=== PATIENT | male | born 1960 | race African-American/Black ===

== ENCOUNTER 2016-11-07 12:15 | Observation (INO) | payer OTHER ==
[~2016-11-07] VITALS: Ht 188 cm; Wt 101.8 kg
[~2016-11-07 12:15] MED LIST: CYCL-331 PO; FLEXERIL; HYDR-965 PO; LISI1TAB5 PO; PRED20TA PO; SIMV10TA3 PO
--- NOTE | 2016-11-07 12:19 | ED.ADGEN ---
Past History Past Medical History: High Cholesterol, Hypertension, Other Additional Past Medical Histor: CHRONIC BACK PAIN Past Surgical History: Appendectomy, Other Additional Past Surgical Histo: DISC FUSIONS IN LOWER BACK Smoking: Cigar Alcohol Use: None Drug Use: None Adult General Chief Complaint Chief Complaint Chest pain [facility] HPI Patient is a 56 year old who presents with substernal chest pain. He states his been going on for 6 months very intermittent and now over the last 2 days is gotten much worse where his symptoms are getting closer together and lasting much longer. He states he describes a sharp stabbing pain is in the substernal chest area radiates to his left shoulder and sometimes down his left arm. States she's attacking come on and last round 20 minutes and then subsided go away by themselves. He states he feels short of breath when they come on and nauseated at times. He denies any diaphoresis. He does have hypertension dyslipidemia and smokes cigars. He's never had a formal react workup or evaluation. Does have a sister who had hypertension, diabetes and end- stage renal failure who . He denies any other history of coronary disease in his family. He states nothing makes the pain better or worse. He states does state that he feels like he is limited to activities for shortness of breath and can only ambulate partially a block before he has to stop to rest. Review of Systems Review of Systems Constitutional: Denies fever or chills [] Eyes: Denies change in visual acuity, redness, or eye pain [] HENT: Denies nasal congestion or sore throat [] Respiratory: Denies cough or shortness of breath [] Cardiovascular: No additional information not addressed in HPI [] GI: Denies abdominal pain, nausea, vomiting, bloody stools or diarrhea [] : Denies dysuria or hematuria [] Musculoskeletal: Denies back pain or joint pain [] Integument: Denies rash or skin lesions [] Neurologic: Denies headache, focal weakness or sensory changes [] Endocrine: Denies polyuria or polydipsia [] Current Medications Current Medications Current Medications Medications (Trade) Dose Ordered Sig/Taras Start Time Stop Time Status Last Admin Dose Admin Nitroglycerin (Nitrostat) 0.4 mg 1X ONCE 11/07/16 13:15 11/07/16 13:16 DC 11/07/16 13:15 0.4 MG Ondansetron HCl (Zofran) 4 mg 1X ONCE 11/07/16 12:45 11/07/16 12:46 DC 11/07/16 12:45 4 MG Allergies Allergies Allergies Coded Allergies Type Severity Reaction Last Updated Verified No Known Drug Allergies 02/01/14 No Physical Exam Physical Exam Constitutional: Well developed, well nourished, no acute distress, non-toxic appearance. [] HENT: Normocephalic, atraumatic, bilateral external ears normal, oropharynx moist, no oral exudates, nose normal. [] Eyes: PERRLA, EOMI, conjunctiva normal, no discharge. [] Neck: Normal range of motion, no tenderness, supple, no stridor. [] Cardiovascular:Heart rate regular rhythm, no murmur [] Lungs & Thorax: Bilateral breath sounds clear to auscultation [] Abdomen: Bowel sounds normal, soft, no tenderness, no masses, no pulsatile masses. [] Skin: Warm, dry, no erythema, no rash. [] Back: No tenderness, no CVA tenderness. [] Extremities: No tenderness, no cyanosis, no clubbing, ROM intact, no edema. [] Neurologic: Alert and oriented X 3, normal motor function, normal sensory function, no focal deficits noted. [] Psychologic: Affect normal, judgement normal, mood normal. [] Current Patient Data Vital Signs Vital Signs Date Time Temp Pulse Resp B/P Pulse Ox O2 Delivery O2 Flow Rate FiO2 11/07/16 13:15 88 144/69 11/07/16 12:25 98.3 18 99 Room Air Lab Results Laboratory Tests Test 11/07/16 12:30 White Blood Count 9.3x10^3/uL (4.0-11.0) Red Blood Count 5.00x10^6/uL (4.30-5.70) Hemoglobin 14.7g/dL (13.0-17.5) Hematocrit 44.8% (39.0-53.0) Mean Corpuscular Volume 90fL (79-100) Mean Corpuscular Hemoglobin 30pg (25-35) Mean Corpuscular Hemoglobin Concent 33g/dL (31-37) Red Cell Distribution Width 14.1% (11.5-14.5) Platelet Count 296x10^3/uL (140-400) Neutrophils (%) (Auto) 52% (31-73) Lymphocytes (%) (Auto) 38% (24-48) Monocytes (%) (Auto) 7% (0-9) Eosinophils (%) (Auto) 3% (0-3) Basophils (%) (Auto) 1% (0-3) Neutrophils # (Auto) 4.8x10^3uL (1.8-7.7) Lymphocytes # (Auto) 3.5x10^3/uL (1.0-4.8) Monocytes # (Auto) 0.7x10^3/uL (0.0-1.1) Eosinophils # (Auto) 0.2x10^3/uL (0.0-0.7) Basophils # (Auto) 0.0x10^3/uL (0.0-0.2) Prothrombin Time 9.7SEC (9.4-11.4) Prothrombin Time INR 0.9 (0.9-1.1) PTT 25SEC (23-33) Sodium Level 143mmol/L (136-145) Potassium Level 3.6mmol/L (3.5-5.1) Chloride Level 105mmol/L (98-107) Carbon Dioxide Level 25mmol/L (21-32) Anion Gap 13 (6-14) Blood Urea Nitrogen 14mg/dL (8-26) Creatinine 1.3mg/dL (0.7-1.3) Estimated GFR (Cockcroft-Gault) 69.1 BUN/Creatinine Ratio 11 (6-20) Glucose Level 162mg/dL (70-99) H Calcium Level 8.9mg/dL (8.5-10.1) Magnesium Level 1.8mg/dL (1.8-2.4) Total Bilirubin 0.4mg/dL (0.2-1.0) Aspartate Amino Transferase (AST) 15U/L (15-37) Alanine Aminotransferase (ALT) 21U/L (16-63) Alkaline Phosphatase 79U/L (46-116) Creatine Kinase 233U/L (39-308) Creatine Kinase MB (Mass) 1.0ng/mL (0.0-3.6) Creatine Kinase MB Relative Index 0.4% (0-4) Troponin I Quantitative < 0.017ng/mL (0-0.055) HI-Tws-D-Type Natriuretic Peptide 9pg/mL (0-124) Total Protein 7.5g/dL (6.4-8.2) Albumin 3.6g/dL (3.4-5.0) Albumin/Globulin Ratio 0.9 (1.0-1.7) L Lipase 150U/L (73-393) EKG EKG EKG shows sinus rhythm with rate [address] elevations, T-wave inversions noted in lead 3, left axis deviation, QTC 4 and 43 ms, as interpreted by me. Radiology/Procedures Radiology/Procedures [address] [id number] IMAGING REPORT Signed PATIENT: HALLE TADEO ACCOUNT: [id number] : 1960 LOCATION: ER AGE: 56 SEX: M EXAM STATUS: REG ER ORD. PHYSICIAN: HEMANT TORRES MD REASON: chest pain PROCEDURE: PORTABLE CHEST 1V Portable chest, 11/07/2016: History: Chest pain Comparison is made to a study from 11/06/2012. The heart size and pulmonary vascularity are normal. No pulmonary infiltrates are seen. There is no evidence of pleural fluid. IMPRESSION: No acute cardiopulmonary abnormality is detected. DICTATED AND SIGNED BY: TRA FLORES MD DATE: 11/07/16 1256 CC: HEMANT TORRES MD; JOYCELYN HOLCOMB APRN ~ Course & Med Decision Making Course & Med Decision Making Pertinent Labs and Imaging studies reviewed. (See chart for details) She presented with chest discomfort that was resolved with nitroglycerin in the ER. His EKG does have T-wave inversions in lead 3. His labs and chest x-ray nonacute. Patient was discussed with with cardiology is okay with the patient being admitted to [facility] to have a stress test in the morning. Patient's agreeable plan is being admitted to Dr. Alfredo in stable condition at this time. He did receive 325 of aspirin. Final Impression Final Impression Chest pain Hypertension Dyslipidemia Problems: Dragon Disclaimer Dragon Disclaimer This electronic medical record was generated, in whole or in part, using a voice recognition dictation system. HEMANT TORRES MD November 07, 2016 12:19
--- NOTE | 2016-11-07 12:30 | EKG ---
[address] [address] Test Date: 2016-11-07 Test Time: 12:22:17 Pat Name: HALLE TADEO Department: Room: Gender: M [employer]: LESTER : 1960 Requested By: HEMANT TORRES Order Number: [id number] Reading MD: Deep Holcomb Measurements Intervals [place] Rate: 77 P: 53 NE: 182 QRS: -6 QRSD: 82 T: 20 QT: 390 QTc: 443 Interpretive Statements SINUS RHYTHM Electronically Signed On 11-09-2016 13:16:26 CDT by Deep Holcomb
[2016-11-07] MEDS ORDERED: ONDANSETRON PF 4 MG/2 ML VIAL. IV ONE (12:45)
[2016-11-07 12:47] LABS: BASO % 1 % (0-3); EOS # 0.2 x10^3/uL (0.0-0.7); EOS % 3 % (0-3); HEMATOCRIT 44.8 % (39.0-53.0); HEMOGLOBIN 14.7 g/dL (13.0-17.5); LYMPH # 3.5 x10^3/uL (1.0-4.8); LYMPH % 38 % (24-48); MEAN CORPUSCULAR HEMOGLOBIN 30 pg (25-35); MEAN CORPUSCULAR HGB CONC 33 g/dL (31-37); MEAN CORPUSCULAR VOLUME 90 fL (79-100); MONO # 0.7 x10^3/uL (0.0-1.1); MONO % 7 % (0-9); NEUT # 4.8 x10^3uL (1.8-7.7); NEUT % 52 % (31-73); PLATELET COUNT 296 x10^3/uL (140-400); RED CELL DISTRIBUTION WIDTH 14.1 % (11.5-14.5); WHITE BLOOD COUNT 9.3 x10^3/uL (4.0-11.0)
--- NOTE | 2016-11-07 12:59 | RAD ---
Portable chest, 11/07/2016: History: Chest pain Comparison is made to a study from 11/06/2012. The heart size and pulmonary vascularity are normal. No pulmonary infiltrates are seen. There is no evidence of pleural fluid. IMPRESSION: No acute cardiopulmonary abnormality is detected.
[2016-11-07 13:12] LABS: ALBUMIN 3.6 g/dL (3.4-5.0); ALBUMIN/GLOBULIN RATIO 0.9 (1.0-1.7); CALCIUM 8.9 mg/dL (8.5-10.1); CREATININE 1.3 mg/dL (0.7-1.3); GFR 69.1; MAGNESIUM 1.8 mg/dL (1.8-2.4); POTASSIUM 3.6 mmol/L (3.5-5.1); TOTAL BILIRUBIN 0.4 mg/dL (0.2-1.0); TOTAL PROTEIN 7.5 g/dL (6.4-8.2)
[2016-11-07] MEDS ORDERED: NITROGLYCERIN SUBLINGUAL 0.4 MG BOTTLE OF 25. SL ONE ×2 (13:15→14:30)
[2016-11-07] MEDS ORDERED: ONDANSETRON PF 4 MG/2 ML VIAL. IV PRN (14:15)
[2016-11-07] MEDS ORDERED: ASPIRIN 81 MG TAB.CHEW PO ONE (14:30)
[2016-11-07 15:43] VITALS: BP 162/71
[2016-11-07] MEDS ORDERED: ATOR20TA58 PO (15:45)
[2016-11-07] MEDS ORDERED: LISI-334 PO (15:45)
[2016-11-07] MEDS: HYDROcodone/APAP 7.5/325MG 1 TAB TABLET PO PRN ×2 (16:52→22:54)
--- NOTE | 2016-11-07 17:39 | NUR ---
The patient, HALLE TADEO, 56 y/o, M admitted by TERRY MANNING DO, was given written information regarding hospital policies, unit procedures and contact persons. Valuables were checked and left with pt. Pt's , Tonia, present at time of admission. Pt notified of plan of care, including stress test in AM and NPO after midnight. KATHERINE Mcfadden, notified of cardiology consult. Dr. Manning notified of admission and orders received for pain medication. Will continue to monitor.
[2016-11-07 20:00] VITALS: BP 154/80
[2016-11-07] MEDS: MORPHINE SULFATE 2 MG/ML DISP.SYRIN. IV PRN (20:24)
[2016-11-07] MEDS ORDERED: ATORVASTATIN CALCIUM 20 MG TABLET PO SCH (21:00)
[2016-11-07 22:53] VITALS: BP 152/76
[2016-11-07 23:45] LABS: BILIRUBIN,URINE NEG (NEG); CLARITY,URINE CLEAR; COLOR,URINE YELLOW; GLUCOSE,URINE NEG (NEG); NITRITE,URINE NEG (NEG); UROBILINOGEN,URINE 0.2 mg/dL (0.2 mg/dL)
[2016-11-07 23:46] LABS: BACTERIA,URINE 0 /HPF (0-FEW); SQUAMOUS EPITHELIAL CELL,UR OCC /LPF; WBC,URINE OCC /HPF (0-4)
[2016-11-08 02:03] LABS: BASO # 0.1 x10^3/uL (0.0-0.2); BASO % 1 % (0-3); EOS # 0.3 x10^3/uL (0.0-0.7); EOS % 3 % (0-3); HEMATOCRIT 40.7 % (39.0-53.0); HEMOGLOBIN 13.9 g/dL (13.0-17.5); LYMPH # 4.5 x10^3/uL (1.0-4.8); LYMPH % 46 % (24-48); MEAN CORPUSCULAR HEMOGLOBIN 30 pg (25-35); MEAN CORPUSCULAR HGB CONC 34 g/dL (31-37); MEAN CORPUSCULAR VOLUME 89 fL (79-100); MONO # 0.9 x10^3/uL (0.0-1.1); MONO % 9 % (0-9); NEUT % 41 % (31-73); PLATELET COUNT 287 x10^3/uL (140-400); RED BLOOD COUNT 4.58 x10^6/uL (4.30-5.70); RED CELL DISTRIBUTION WIDTH 13.6 % (11.5-14.5); WHITE BLOOD COUNT 9.8 x10^3/uL (4.0-11.0)
[2016-11-08 02:31] LABS: CREATININE 1.2 mg/dL (0.7-1.3); GFR 75.8; POTASSIUM 3.6 mmol/L (3.5-5.1)
[2016-11-08] MEDS: MORPHINE SULFATE 2 MG/ML DISP.SYRIN. IV PRN ×2 (05:13→11:07)
[2016-11-08 05:35] VITALS: BP 119/79
--- NOTE | 2016-11-08 06:12 | NUR ---
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 Pt has facial grimacing and rubbing at back and leg. Continues to have Kpad for comfort. Pt resting in bed at this time with at bedside. Case management to speak with patient today in regards to pain management plan.
--- NOTE | 2016-11-08 06:31 | ACF ---
Admission Criteria Forms CHEST PAIN Clinical Indications for Admission to Inpatient Care (Place 'X' for any and all applicable criteria): Admission is indicated for chest pain and ANY ONE of the following(1)(2)(3)(4)(5 ): [ ]I. Angina with acute coronary syndrome (Also use Myocardial Infarction or Angina guideline) [ ]II. Hemodynamic instability [ ]III. Angina needing acute intervention as indicated by ALL of the following( 11)(12): [ ]a) Unstable angina is present as indicated by angina that is ANY ONE of the following: [ ]i) New onset [ ]ii) Nocturnal [ ]iii) Prolonged at rest [ ]iv) Progressive [ ]b) Angina warrants acute intervention as indicated by ANY ONE of the following: [ ]i) Recurrent angina (e.g, not responding as previously to treatment) [ ]ii) Angina at rest or with low-level activities despite initial medical therapy [ ]iii) New or presumably new ST-segment depression on ECG [ ]iv) Signs or symptoms of heart failure (eg, dyspnea, pulmonary edema) [ ]v) New or worsening mitral regurgitation [ ]vi) Hemodynamic instability [ ]vii) Dangerous arrhythmia (eg, sustained ventricular tachycardia) [ ]viii) History of percutaneous coronary intervention within 6 months [ ]ix) History of coronary artery bypass graft surgery [ ]x) DANICA risk score of 2 or greater[A] [ ]xi) History of Diabetes(14) [ ]xii) High-risk cardiac ischemia findings on noninvasive testing (e.g, echocardiogram, treadmill testing, nuclear scan) [ ]xiii) Chronic renal insufficiency (ie, estimated GFR less than 60 mL/min/1.732m) [ ]xiv) Left ventricular ejection fraction less than 40% [ ]IV. Evidence of AR (eg, cardiac biomarkers positive, ST-segment elevation on ECG) also use Myocardial Infarction Criteria Form. [ ]V. Pulmonary edema [ ]. Respiratory distress [ ]VII. Chest pain indicative of serious diagnosis other than coronary artery disease (eg, aortic dissection) [ ]VIII. Contraindications and/or Inappropriate clinical situations for Observational Care in patients with Chest Pain, when ANY ONE of the following is required: [ ]a) Patient with risk factor for pulmonary embolism, acute coronary syndrome and myocardial infarction (18) [ ]b) Patient with Pulmonary embolism require an average LOS of 4.3 days, therefore emergency department observation management is inappropriate 18,23 [ ]c) Painful condition/s in the elderly, have the highest rate of recidivism after emergency department observation management (10.8%) 20,21,22 [ ]d) Elevated cardiac biomarker requires intensive and exhaustive care (19) [X]IX. General contraindications and/or Inappropriate clinical situations for Observational Care in patients with Chest Pain, when ANY ONE of the following is required: [X]a) Prediction of prolongation of LOS based on ANY ONE of the following may be considered as a contraindication for observational care 2, 3, 4, 5, 6, 7, 8, 9, 10, 11 [ ]i) Age > 65 yrs. [ ]ii) Patient arriving by ambulance [ ]iii) Patient with high acuity [X]iv) Patient requiring vital sign monitoring [ ]v) Patient on IV medication [ ]b) Systolic blood pressures 180mmHg 3,12 [ ]c) Patient with altered mental status including delirium and other alteration of consciousness, (3) [ ]d) Patient whose discharge disposition will be to a half-way home or rehabilitation home should not be managed in Emergency Department Observation Unit. CMS rule requires 3 days hospital stay before such placement. 3,13 [ ]e) Patient with failure to thrive due to broad array of etiologies 3,16,17 [ ]f) Inability to ambulate 3,14 Extended stay beyond goal length of stay may be needed for (1)(28): [ ]a) Specific condition diagnosed after evaluation (eg, pulmonary embolism, aortic dissection) [ ]b) Unstable angina [ ]c) Continued suspicion of acute coronary syndrome with inability to complete needed cardiac evaluation (eg, patient clinically unable to undergo stress testing) [ ]d) Myocardial infarction (Contents from ANGINA and CHEST PAIN clinical indications for admission to inpatient care have been integrated in this form) The original [facility] content created by [employer] has been revised. The portions of the content which have been revised are identified through the use of italic text or in bold, and [facility] [employer] has neither reviewed nor approved the modified material. All other unmodified content is copyright [facility]. Please see references footnoted in the original [facility] edition 2016 Admission Criteria Met?: Yes XIOMARA COTTON November 08, 2016 06:31
[2016-11-08] MEDS: NITROGLYCERIN SUBLINGUAL 0.4 MG BOTTLE OF 25. SL PRN ×2 (08:01→12:25)
--- NOTE | 2016-11-08 08:59 | PDOC2 ---
CONSULT Date of Admission DATE: 11/08/16 TIME: 08:54 Reason for Consult: cp Problem List Problems Medical Problems: (1) Chest pain Status: Acute History of Present Illness Mr Lacey is a 56 year old male with a history of hypertension and hyperlipidemia who presents with complaints of chest pain. He reports midsternal chest pressure that radiates to his left shoulder and has associated tingling in his finger tips. He denies associated nausea, vomiting or diaphoresis but does have associated dyspnea. He reports the pain has been intermittent for several days. It is not exertional in nature and lasts from 5- 20 minutes each episode. His discomfort was relieved with NTG in the ED. He denies increase with movement, deep inspiration or ambulation. He denies any significant improvement with position change or ambulation. He denies prior episodes of chest discomfort, dyspnea. He does report some associated palpitations but denies lightheadedness or syncope. He has a history of a failed lumbar surgery and drop foot that limits his functional capacity. Cardiovascular: HTN, hyperipidemia Musculoskeletal: low back pain (Chronic), Other (drop foot) Past Surgical History lumbar surgery, rotator cuff surgery Family History no significant family history Social History smokes cigars, no significant ETOH, no illicit drugs. , lives with . Current Medications Current Medications Ondansetron HCl (Zofran) 4 mg 1X ONCE IV Last administered on 11/07/16 12:45; Start 11/07/16 at 12:45; Stop 11/07/16 at 12:46; Status DC Nitroglycerin (Nitrostat) 0.4 mg 1X ONCE SL Last administered on 11/07/16 13: 15; Start 11/07/16 at 13:15; Stop 11/07/16 at 13:16; Status DC Ondansetron HCl (Zofran) 4 mg PRN Q4HRS PRN IV NAUSEA/VOMITING; Start 11/07/16 at 14:15; Stop 11/08/16 at 14:14 Morphine Sulfate (Morphine 2mg Syringe) 2 mg PRN Q2HR PRN IV PAIN Last administered on 11/08/16 05:13; Start 11/07/16 at 14:15; Stop 11/08/16 at 14:14 Nitroglycerin (Nitrostat) 0.4 mg PRN Q5MIN PRN SL CHEST PAIN Last administered on 11/08/16 08:01; Start 11/07/16 at 14:15; Stop 11/08/16 at 14:14 Aspirin (Children'S Aspirin) 324 mg 1X ONCE PO Last administered on 11/07/16 14:23; Start 11/07/16 at 14:30; Stop 11/07/16 at 14:31; Status DC Nitroglycerin (Nitrostat) 0.4 mg 1X ONCE SL ; Start 11/07/16 at 14:30; Stop 11/07 at 14:31; Status DC Acetaminophen/ Hydrocodone Bitart (Lortab 7.5/325) 1 tab PRN Q6HRS PRN PO PAIN Last administered on 11/07/16 22:54; Start 11/07/16 at 16:15 Atorvastatin Calcium (Lipitor) 20 mg QHS PO Last administered on 11/07/16 20:24 ; Start 11/07/16 at 21:00 Lisinopril (Prinivil) 20 mg DAILY PO ; Start 11/08/16 at 09:00 Regadenoson (Lexiscan) 0.4 mg 1X ONCE IV ; Start 11/08/16 at 09:00; Stop at 09:01 Active Scripts Active Flagyl (Metronidazole) 500 Mg Tablet 500 Mg PO TID [place] 7.5-325 Tablet (Acetaminophen/Hydrocodone Bitart) 1 Each Tablet 1 Each PO Q4HRS PRN Reported Atorvastatin Calcium 20 Mg Tablet 20 Mg PO QHS Lisinopril 20 Mg Tablet 1 Tab PO DAILY Albuterol Sulfate Hfa Inhaler (Albuterol Sulfate) 8.5 Gm Hfa.aer.ad 2 Puff INH QID PRN Simvastatin 10 Mg Tablet 10 Mg PO HS Aspir 81 (Aspirin) 81 Mg Tablet.dr 81 Mg PO DAILY Lisinopril 20 Mg Tablet 20 Mg PO DAILY Allergies: Coded Allergies: No Known Drug Allergies (Unverified , 02/01/14) Review of System as per HPI General: Alert, Oriented X3, Cooperative, No acute distress HEENT: Atraumatic, EOMI, Mucous membr. moist/pink Lungs: Clear to auscultation, Normal air movement Heart: Regular rate, Normal S1, Normal S2, Other (no gallops, no obvious murmurs, no clicks or rubs) Abdomen: Normal bowel sounds, Soft Extremities: No clubbing, No cyanosis, Normal pulses Neuro: Normal speech, Strength at 5/5 X4 ext Psych/Mental Status: Mental status NL, Mood NL VITALS Vital Signs Date Time Temp Pulse Resp B/P Pulse Ox O2 Delivery O2 Flow Rate FiO2 11/08/16 08:01 59 156/68 11/08/16 07:20 Room Air 11/08/16 05:43 99 11/08/16 05:35 97.7 23 Labs Laboratory Tests Test 11/07/16 12:30 11/07/16 17:47 11/07/16 19:05 11/07/16 23:25 White Blood Count 9.3x10^3/uL (4.0-11.0) Red Blood Count 5.00x10^6/uL (4.30-5.70) Hemoglobin 14.7g/dL (13.0-17.5) Hematocrit 44.8% (39.0-53.0) Mean Corpuscular Volume 90fL (79-100) Mean Corpuscular Hemoglobin 30pg (25-35) Mean Corpuscular Hemoglobin Concent 33g/dL (31-37) Red Cell Distribution Width 14.1% (11.5-14.5) Platelet Count 296x10^3/uL (140-400) Neutrophils (%) (Auto) 52% (31-73) Lymphocytes (%) (Auto) 38% (24-48) Monocytes (%) (Auto) 7% (0-9) Eosinophils (%) (Auto) 3% (0-3) Basophils (%) (Auto) 1% (0-3) Neutrophils # (Auto) 4.8x10^3uL (1.8-7.7) Lymphocytes # (Auto) 3.5x10^3/uL (1.0-4.8) Monocytes # (Auto) 0.7x10^3/uL (0.0-1.1) Eosinophils # (Auto) 0.2x10^3/uL (0.0-0.7) Basophils # (Auto) 0.0x10^3/uL (0.0-0.2) Prothrombin Time 9.7SEC (9.4-11.4) Prothromb Time International Ratio 0.9 (0.9-1.1) Activated Partial Thromboplast Time 25SEC (23-33) Sodium Level 143mmol/L (136-145) Potassium Level 3.6mmol/L (3.5-5.1) Chloride Level 105mmol/L (98-107) Carbon Dioxide Level 25mmol/L (21-32) Anion Gap 13 (6-14) Blood Urea Nitrogen 14mg/dL (8-26) Creatinine 1.3mg/dL (0.7-1.3) Estimated GFR (Cockcroft-Gault) 69.1 BUN/Creatinine Ratio 11 (6-20) Glucose Level 162mg/dL (70-99) Calcium Level 8.9mg/dL (8.5-10.1) Magnesium Level 1.8mg/dL (1.8-2.4) Total Bilirubin 0.4mg/dL (0.2-1.0) Aspartate Amino Transf (AST/SGOT) 15U/L (15-37) Alanine Aminotransferase (ALT/SGPT) 21U/L (16-63) Alkaline Phosphatase 79U/L (46-116) Creatine Kinase 233U/L (39-308) Creatine Kinase MB (Mass) 1.0ng/mL (0.0-3.6) Creatine Kinase MB Relative Index 0.4% (0-4) Troponin I Quantitative < 0.017ng/mL (0-0.055) < 0.017ng/mL (0-0.055) AA-Frs-D-Type Natriuretic Peptide 9pg/mL (0-124) Total Protein 7.5g/dL (6.4-8.2) Albumin 3.6g/dL (3.4-5.0) Albumin/Globulin Ratio 0.9 (1.0-1.7) Lipase 150U/L (73-393) Nasal Screen MRSA (PCR) Negative (Negative) Urine Collection Type Unknown Urine Color Yellow Urine Clarity Clear Urine pH 6.0 Urine Specific [place] 1.015 Urine Protein Neg (NEG-TRACE) Urine Glucose (UA) Negmg/dL (NEG) Urine Ketones (Stick) Negmg/dL (NEG) Urine Blood Small (NEG) Urine Nitrite Neg (NEG) Urine Bilirubin Neg (NEG) Urine Urobilinogen Dipstick 0.2mg/dL (0.2 mg/dL) Urine Leukocyte Esterase Neg (NEG) Urine RBC 1-2/HPF (0-2) Urine WBC Occ/HPF (0-4) Urine Squamous Epithelial Cells Occ/LPF Urine Bacteria 0/HPF (0-FEW) Test 11/08/16 01:40 White Blood Count 9.8x10^3/uL (4.0-11.0) Red Blood Count 4.58x10^6/uL (4.30-5.70) Hemoglobin 13.9g/dL (13.0-17.5) Hematocrit 40.7% (39.0-53.0) Mean Corpuscular Volume 89fL (79-100) Mean Corpuscular Hemoglobin 30pg (25-35) Mean Corpuscular Hemoglobin Concent 34g/dL (31-37) Red Cell Distribution Width 13.6% (11.5-14.5) Platelet Count 287x10^3/uL (140-400) Neutrophils (%) (Auto) 41% (31-73) Lymphocytes (%) (Auto) 46% (24-48) Monocytes (%) (Auto) 9% (0-9) Eosinophils (%) (Auto) 3% (0-3) Basophils (%) (Auto) 1% (0-3) Neutrophils # (Auto) 4.0x10^3uL (1.8-7.7) Lymphocytes # (Auto) 4.5x10^3/uL (1.0-4.8) Monocytes # (Auto) 0.9x10^3/uL (0.0-1.1) Eosinophils # (Auto) 0.3x10^3/uL (0.0-0.7) Basophils # (Auto) 0.1x10^3/uL (0.0-0.2) Sodium Level 139mmol/L (136-145) Potassium Level 3.6mmol/L (3.5-5.1) Chloride Level 103mmol/L (98-107) Carbon Dioxide Level 24mmol/L (21-32) Anion Gap 12 (6-14) Blood Urea Nitrogen 11mg/dL (8-26) Creatinine 1.2mg/dL (0.7-1.3) Estimated GFR (Cockcroft-Gault) 75.8 Glucose Level 112mg/dL (70-99) Calcium Level 9.0mg/dL (8.5-10.1) Troponin I Quantitative < 0.017ng/mL (0-0.055) Images EKG - sinus rhythm, left axis, non specific abnormalities CXR - IMPRESSION: No acute cardiopulmonary abnormality is detected. Assessment/Plan 1. chest pain - AL ruled out. Suggest lexiscan MPI this am. Will check echocardiogram and lipids as well. Continue aspirin, statin and home antihypertensives. No beta isidoro secondary to bradycardia. 2. sinus bradycardia - mild 3. hypertension - controlled on home meds 4. hyperlipidemia - check lipids and continue statin therapy. 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
[2016-11-08] MEDS ORDERED: REGADENOSON 0.4 MG/5 ML DISP.SYRIN. IV ONE (09:00)
[2016-11-08] MEDS ORDERED: LISINOPRIL 20 MG TABLET PO SCH (09:00)
[2016-11-08 11:23] VITALS: BP 153/89
[2016-11-08] MEDS ORDERED: HYDROcodone/APAP 7.5/325MG 1 TAB TABLET PO PRN (12:30)
--- NOTE | 2016-11-08 13:30 | HP ---
ADMIT DATE: 11/08/2016 REASON FOR ADMISSION: Chest pain. HISTORY OF PRESENT ILLNESS: This is a 56-year-old -[place] male, who stated he started having chest pain about 3 weeks ago. They were unprovoked, sometimes at rest even in bed. He did see his primary care provider, who suggested that he take some and it could possibly be indigestion. He did not have any reflux symptoms associated with the chest pain. He was getting about 2 or 3 a day, lasting 20 to 45 minutes. Yesterday he came in to the Emergency Room because the pain started to radiate in his left neck and down his left arm. PAST MEDICAL HISTORY: Hypertension, high cholesterol, spinal stenosis, failed back surgery, chronic left sciatica, chronic pain, history of GI bleed. The patient has had some epidural shots, which required insurance approval and has not had any in quite some time. They do help somewhat. MEDICATIONS: Lisinopril 20 mg a day. The patient has been on hydrocodone and Lyrica in the past as well as gabapentin. He is not having any luck getting anyone to prescribe these for him in spite of his significant back pain. PAST SURGICAL HISTORY: Fusion of L4-L5, some type of rings around the vasculature as well, hernia repair. FAMILY HISTORY: Negative for heart disease. One sister in her late 60s of kidney failure as a result of diabetes. HABITS: Smokes 1 cigar every day and a half. No alcohol. Smoked marijuana remotely in the past. 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 REVIEW OF SYSTEMS: Constant low back pain. No problems with his bowel or his bladder, chronic numbness in the left leg with left foot drop. Positive shortness of breath associated with the HPI. Denies headache, fever, sore throat, bowel or bladder issues. OBJECTIVE: VITAL SIGNS: Blood pressure is 153/89, temperature 97.6, pulse 76, respirations 20, pulse ox 95% on room air. GENERAL: Height 74 inches, weight 224 pounds. GENERAL: A 56-year-old, who is having back pain. HEENT: Hearing is normal. His eyes were clear. His nose was patent. His throat was clear. NECK: Supple. There were no carotid bruits. Thyroid was not enlarged. LUNGS: Clear to auscultation. CARDIOVASCULAR: Regular rhythm and rate with a 1/6 systolic murmur heard in the left sternal border. ABDOMEN: Soft, nontender. EXTREMITIES: Without edema. The patient has palpatory pain over the left SI joint. He also has absent reflexes on L4 and S1 and left foot droop. LABORATORY DATA: Troponin is negative x 3. Normal CBC. Chemistry: Creatinine is 1.2. Chemistry profile was negative. EKG is negative for ST depression or elevation. ASSESSMENT: 1. Chest pain, questionable etiology. Does have cardiac risk factors. 2. Hypertension, slightly above normal. 3. Hyperlipidemia. 4. Chronic low back pain. 5. Spinal stenosis. 6. Chronic left leg radiculopathy. PLAN: He thinks to have a stress test. He was seen by Cardiology. It should be positive he most likely need a catheterization. We will try to treat his back pain hospitalized in the hospital. TERRY MANNING DO DR: MORENO/trip JOB#: [id number] / [id number]
--- NOTE | 2016-11-08 14:23 | RAD ---
APPROVED REPORT Test Type: Pharmacological Stress Nurse/Tech: DUSTIN Le Test Indications: Chest pain Cardiac History: none Medications: see EHR Medical History: see EHR Resting ECG: SB NS D's Resting Heart Rate: 53 bpm Resting Blood Pressure: 141/74mmHg Pretest Chest Pain: None Nurse/Tech Notes Consent: The procedure was explained to the patient in lay terms. Informed consent was witnessed. Wilfrido eout was entered into [facility]. History and Stress Test performed by DUSTIN Le Pharm. Details Pharmacologic stress testing was performed using 0.4mg per 5ml of regadenoson given intravenously ove r 7-10 seconds. Stress Symptoms minimal shortness of breath POST EXERCISE Max HR: 93 bpm Max Blood Pressure: 142/63mmHg Blood Pressure response to exercise: Normal blood pressure response during stress. Chest Pain: No. INTERPRETATION Stress EKG Conclusion: The resting EKG shows a sinus rhythm with nonspecific ST-T wave changes anteri day. The stress EKG shows no significant changes from baseline. No EKG evidence of stress-induced ischemia. Imaging Protocol IMAGE PROTOCOL: Rest Tc-99m/stress Tc-99m 1 day Rest: Stress: Viability: Radiopharm.Tc99m VrvpmstlsEt63t Sestamibi Dose12.4mCi 33.1mCi Duration 15min. 10min. Img Date 11/08/2016 11/08/2016 Inj-Img [id number]. 90min. Rest Admin Site:IV - Right AntecubitalAdministrator: DUSTIN Le Stress Admin Site: IV - Right AntecubitalAdministrator: DUSTIN Le STRESS DATA End Diast. Vol.129.0mlAv. Heart Rate76.0bpm LVEDV index BSA2.0mlCardiac Output0.1L/min End Syst. Vol.37.0mlCO Index BSA7.0L/min LVESV index BSA1.0mlMyocardial Uvjr833.0g Eject. Vuvqtcrt75.0% Stress Rates Pk. Fill Rate3.51EDV/secLVtime Pk. Fill 117.00msec Pk. Empty Rate3.89ESV/secLVtime Pk. Qmbys497.63msec 1/3 Pk. Fill2.42EDV/sec Stress Scores Regional WT0.00Summed WT4.00 Regional WM0.00Summed WM0.00 LV Perfusion The stress scans show a small defect in the inferior wall. The rest scans showed no significant defects. Nuclear imaging is suggestive of a small inferior wall area of reversible ischemia. Wall Motion Left ventricular systolic function is normal with an ejection fraction of greater than 70%. LV Perf. Quant 17 Seg. SSS0.00 17 Seg. SRS2.00 17 Seg. SDS0.00 Stress Defect Extent (% LAD)0.00Rest Defect Extent (% LAD)0.00Rev. Defect Extent (% LAD)0.00 Stress Defect Extent (% LCX) 5.00Rest Defect Extent (% LCX)8.80Rev. Defect Extent (% LCX)0.00 Stress Defect Extent (% RCA)0.00Rest Defect Extent (% RCA)0.00Rev. Defect Extent (% RCA)0.00 Stress Defect Extent (% TANYA)1.30Rest Defect Extent (% TANYA)2.60Rev. Defect Extent (% TANYA)0.00 Conclusion 1. No EKG evidence of stress-induced ischemia. 2. Nuclear imaging is positive for a probable small area of reversible ischemia in the inferior wall. 3. Normal left ventricular systolic function with an ejection fraction of greater than 70%. 4. Moderate risk Lexiscan nuclear stress test positive for small area of reversible ischemia.
[2016-11-08 15:18] VITALS: BP 123/54
[2016-11-08] MEDS ORDERED: HYDR-2762 PO (16:22)
[2016-11-08] MEDS ORDERED: PREG50CA PO (16:23)
--- NOTE | 2016-11-08 16:55 | CARD ---
APPROVED REPORT EXAM: Two-dimensional and M-mode echocardiogram with Doppler and color Doppler. Other Information Quality : GoodHR: 57bpm Rhythm : Bradycardia INDICATION Chest pressure RISK FACTORS Hypertension 2D DIMENSIONS RVDd3.2 (2.9-3.5cm)Left Atrium(2D)3.4 (1.6-4.0cm) IVSd0.9 (0.7-1.1cm)Aortic Root(2D)3.0 (2.0-3.7cm) LVDd5.4 (3.9-5.9cm)LVOT Diameter2.4 (1.8-2.4cm) PWd0.9 (0.7-1.1cm)LVDs3.2 (2.5-4.0cm) FS (%) 40.8 %SV99.9 ml LVEF(%)71.1 (>50%) Aortic Valve AoV Peak Poncho.135.1cm/sAoV VTI24.8cm AO Peak GR.7.3mmHgLVOT Peak Poncho.101.5cm/s LVOT VTI 22.19cmAO Mean GR.3mmHg BHARATI (VMAX)3.31mc5WXG (VTI)4.03cm2 Mitral Valve MV E Bopccjnc65.3cm/sMV E Peak Gr.5mmHg MV DECEL [id number] A Pnulbhka98.7cm/s MV E Mean Gr.1mmHgE/A Ratio1.4 MV A Mimpnltt746fv Pulmonary Valve PV Peak Auwircrq096.0cm/sPV Peak Grad.6mmHg Tricuspid Valve TR P. Jnshdwxq539za/sTR Peak Gr.33mmHg Pulmonary Vein S1 Dvcmwpaq56.1cm/sD2 Ixrsasnq60.6cm/s LEFT VENTRICLE The left ventricle is normal size. There is normal left ventricular wall thickness. The left ventricu lar systolic function is normal and the ejection fraction is within normal range. The Ejection Fracti on is 65-70%. There is normal LV segmental wall motion. The left ventricular diastolic function and f illing is normal for age. RIGHT VENTRICLE The right ventricle is normal size. There is normal right ventricular wall thickness. The right ventr icular systolic function is normal. ATRIA The left atrium size is normal. The right atrium size is normal. The interatrial septum is intact wit h no evidence for an atrial septal defect or patent foramen ovale as noted on 2-D or Doppler imaging. AORTIC VALVE The aortic valve is normal in structure and function. Doppler and Color Flow revealed no significant aortic regurgitation. There is no significant aortic valvular stenosis. MITRAL VALVE There is no evidence of mitral valve prolapse. There is no mitral valve stenosis. Doppler and Color F low revealed trace mitral regurgitation. TRICUSPID VALVE Doppler and Color Flow revealed mild tricuspid regurgitation. The pulmonary artery systolic pressure is estimated at 36 mmHg. There is mild pulmonary hypertension. PULMONIC VALVE Doppler and Color Flow revealed mild pulmonic valvular regurgitation. There is no pulmonic valvular s tenosis. GREAT VESSELS The aortic root is normal in size. The ascending aorta is normal in size. The pulmonary artery is nor mal. The IVC is normal in size and collapses >50% with inspiration. PERICARDIAL EFFUSION There is no evidence of significant pericardial effusion. Critical Notification Critical Value: No <Conclusion> The left ventricular systolic function is normal and the ejection fraction is within normal range. Th e Ejection Fraction is 65-70%. There is normal LV segmental wall motion.
--- NOTE | 2016-11-08 18:20 | NUR ---
Discharge Note: HALLE TADEO Discharge instructions and discharge home medications reviewed with [facility] RN and a copy given. All questions have been answered and understanding verbalized. The following instructions and handouts were given: Medications, history, labs, imaging, diet, activity, and plan of care. Discontinued lines and drains: Peripheral IV left intact for use at [facility]. Patient discharged to [facility] with via EMS.
[2016-11-09] MEDS ORDERED: ASPIRIN 325 MG TABLET PO SCH (08:00)
--- NOTE | 2016-11-09 16:17 | DS ---
DATE OF DISCHARGE: 11/08/2016 Please note a full history and physical was done on day of discharge as well. DISPOSITION: [facility] for cardiac catheterization. HOSPITAL COURSE: This is a 56-year-old male who was admitted with ongoing chest pain. Subsequent Lexiscan test was abnormal showing a defect possibly in the inferior wall. We decided for him to be transferred to [facility] for cardiac catheterization. Please see history and physical for full information regarding hospitalization. TERRY MANNING DO DR: MORENO/trip JOB#: [id number] / [id number]
== END 2016-11-08 18:22 | disposition short-term general hospital (02) ==
LOC: ER 12:15 → ICU 15:21
PROVIDERS: ADMIT Family Medicine; ATTEND Family Medicine
DX: R07.2 Precordial pain (principal); I10 Essential (primary) hypertension; E78.5 Hyperlipidemia, unspecified; G89.29 Other chronic pain; M54.5 Low back pain; M48.00 Spinal stenosis, site unspecified; M54.10 Radiculopathy, site unspecified; E78.00 Pure hypercholesterolemia, unspecified; F17.290 Nicotine dependence, other tobacco product, uncomplicated; M21.379 Foot drop, unspecified foot; Z90.49 Acquired absence of other specified parts of digestive tract
CPT/HCPCS: 36415; 71010; 78452; 80048; 80053; 80061; 81001; 82553; 83690; 83735; 83880; 84443; 84484; 85027; 85610; 85730; 87641; 93005; 93017; 93306; 96374; 96375; 96376; 99285; A9500; G0378; J2270; J2405; J2785; G0379

== ENCOUNTER 2016-12-22 22:42 | Emergency (ER) | payer OTHER ==
[~2016-12-22] VITALS: Ht 188 cm; Wt 95.3 kg
[~2016-12-22 22:42] MED LIST changes: +ATOR20TA58 PO; +HYDR-2762 PO; +LISI-334 PO; +PREG50CA PO
--- NOTE | 2016-12-22 23:28 | RAD ---
CT HEAD INDICATION: Severe left sided headache, vision changes x 3 days.. COMPARISON: None Available. TECHNIQUE: 5 mm contiguous axial images were obtained from the skull base to the vertex. Exposure: One or more of the following individualized dose reduction techniques were utilized for this examination: 1. Automated exposure control 2. Adjustment of the mA and/or kV according to patient size 3. Use of iterative reconstruction technique FINDINGS: Mild bilateral periventricular white matter hypodensities likely chronic small vessel ischemic disease. Small hypodensity in the left basal ganglia likely old lacunar infarct. No evidence of acute intracranial hemorrhage. No extra-axial fluid collections. No mass effect or midline shift. Ventricular size is appropriate. Basal cisterns are patent. No fractures identified.Bonilla-white differentiation is preserved.Globes and orbits are within normal limits. Moderate mucosal thickening identified in the bilateral ethmoidal sinuses. IMPRESSION: 1. No acute intracranial findings. 2. Sinus disease. Electronically signed by: Tee Deutsch MD (12/22/2016 11:25 PM)
[2016-12-22] MEDS ORDERED: PROCHLORPERAZINE 10 MG/2 ML VIAL. IV ONE (23:30)
[2016-12-22] MEDS ORDERED: IV NORMAL SALINE 1,000ML 1,000 ML IV SCH (23:30)
[2016-12-22] MEDS ORDERED: fentaNYL PF 100 MCG/2 ML VIAL IV ONE (23:30)
[2016-12-22] MEDS ORDERED: diphenhydrAMINE 50 MG/ML VIAL IVP ONE (23:30)
--- NOTE | 2016-12-22 23:56 | PHYS DOC ---
Past History Past Medical History: High Cholesterol, Hypertension, Other Additional Past Medical Histor: CHRONIC BACK PAIN Past Surgical History: Appendectomy, Other Additional Past Surgical Histo: DISC FUSIONS IN LOWER BACK Smoking: Cigar Alcohol Use: None Drug Use: None Adult General Chief Complaint Chief Complaint: EYE PROBLEMS HPI HPI Patient is a 56 year old male who presents with complaint of left-sided headache for 2 days. Patient states that he is having significant pain to his left eye and left gnosticist. Patient denies any previous history of headaches. Patient states his pain is currently 9 out of 10. Patient states that he went to see his eye doctor who did an eye exam and did not note any problems with the eye itself. Patient states that he is having slight decrease in vision at the time of his exam. Patient states that this has persisted. Patient states that the pain has progressively gotten worse over the past 2 days. Patient denies any fevers. Patient has had nausea but no vomiting. Patient has history of hypertension and hyperlipidemia. Patient has taken zndk-mqf-mixyhla medication with no relief in symptoms. Review of Systems Review of Systems Constitutional: Denies fever or chills [] Eyes: Left eye pain, vision loss [] HENT: Denies nasal congestion or sore throat [] Respiratory: Denies cough or shortness of breath [] Cardiovascular: Denies chest pain or edema [] GI: Denies abdominal pain, nausea, vomiting, bloody stools or diarrhea [] : Denies dysuria or hematuria [] Musculoskeletal: Denies back pain or joint pain [] Integument: Denies rash or skin lesions [] Neurologic: Headache, denies focal weakness or sensory changes [] Current Medications Current Medications Current Medications Medications (Trade) Dose Ordered Sig/Taras Start Time Stop Time Status Last Admin Dose Admin Diphenhydramine HCl (Benadryl) 25 mg 1X ONCE 12/22/16 23:30 12/22/16 23:31 DC 12/22/16 23:28 25 MG Fentanyl Citrate (Fentanyl 2ml Vial) 50 mcg 1X ONCE 12/22/16 23:30 12/22/16 23:31 DC 12/22/16 23:28 50 MCG Prochlorperazine Edisylate (Compazine) 10 mg 1X ONCE 12/22/16 23:30 12/22/16 23:31 DC 12/22/16 23:28 10 MG Sodium Chloride 1,000 ml @ 1,000 mls/hr Q1H 12/22/16 23:30 12/23/16 00:29 12/22/16 23:28 1,000 MLS/HR Allergies Allergies Allergies Coded Allergies Type Severity Reaction Last Updated Verified No Known Drug Allergies 02/01/14 No Physical Exam Physical Exam Constitutional: Alert, afebrile, appears in moderate discomfort. [] HENT: Normocephalic, atraumatic, tenderness to palpation over left temporal artery, bilateral external ears normal, oropharynx moist, no oral exudates, nose normal. [] Eyes: PERRLA, EOMI, conjunctiva normal, no discharge. [] Neck: Normal range of motion, no tenderness, supple, no stridor. [] Cardiovascular:Heart rate regular rhythm, no murmur [] Lungs & Thorax: Bilateral breath sounds clear to auscultation [] Abdomen: Bowel sounds normal, soft, no tenderness, no masses, no pulsatile masses. [] Skin: Warm, dry, no erythema, no rash. [] Back: No tenderness, no CVA tenderness. [] Extremities: No tenderness, no cyanosis, no clubbing, ROM intact, no edema. [] Neurologic: Alert and oriented X 3, normal motor function, normal sensory function, no focal deficits noted. [] Current Patient Data Vital Signs Vital Signs Date Time Temp Pulse Resp B/P (MAP) Pulse Ox O2 Delivery O2 Flow Rate FiO2 12/22/16 23:40 98.1 79 18 96 Room Air EKG EKG Not performed [] Radiology/Procedures Radiology/Procedures [address] [address] IMAGING REPORT Signed PATIENT: HALLE TADEO ACCOUNT: [id number] : 1960 LOCATION: ER AGE: 56 SEX: M EXAM STATUS: PRE ER ORD. PHYSICIAN: CASSIA ELLIOTT MD REASON: left-sided headache PROCEDURE: CT HEAD WO CONTRAST CT HEAD INDICATION: Severe left sided headache, vision changes x 3 days.. COMPARISON: None Available. TECHNIQUE: 5 mm contiguous axial images were obtained from the skull base to the vertex. Exposure: One or more of the following individualized dose reduction techniques were utilized for this examination: 1. Automated exposure control 2. Adjustment of the mA and/or kV according to patient size 3. Use of iterative reconstruction technique FINDINGS: Mild bilateral periventricular white matter hypodensities likely chronic small vessel ischemic disease. Small hypodensity in the left basal ganglia likely old lacunar infarct. No evidence of acute intracranial hemorrhage. No extra-axial fluid collections. No mass effect or midline shift. Ventricular size is appropriate. Basal cisterns are patent. No fractures identified.Bonilla-white differentiation is preserved.Globes and orbits are within normal limits. Moderate mucosal thickening identified in the bilateral ethmoidal sinuses. IMPRESSION: 1. No acute intracranial findings. 2. Sinus disease. Electronically signed by: Tee Deutsch MD (12/22/2016 11:25 PM) DICTATED AND SIGNED BY: TEE DEUTSCH MD DATE: 12/22/162319 CC: CASSIA ELLIOTT MD; JOYCELYN HOLCMOB APRN ~ [] Course & Med Decision Making Course & Med Decision Making Pertinent Labs and Imaging studies reviewed. (See chart for details) Patient was treated with IV fentanyl, Compazine, and Benadryl. Patient's symptoms have improved but are still present on reevaluation. Due to patient's age, localized pain over temporal artery, and presence of vision loss, temporal arteritis is high on the patient's differential diagnosis. Patient's CRP and ESR at this time were not elevated, however clinical suspicion remains for possible temporal arteritis. The patient thus was started on IV Solu-Medrol for treatment. I called Dr. Pierre, hospitalist at [facility]. She stated that this patient should not be admitted at [facility] as patient may need possible temporal artery biopsy which cannot be done here. I spoke with Dr. Valle at [facility] who agreed to accept patient for continued treatment. Patient transferred by ground EMS. Dragon Disclaimer Dragon Disclaimer This chart was dictated in whole or in part using Voice Recognition software in a busy, high-work load, and often noisy Emergency Department environment. It may contain unintended and wholly unrecognized errors or omissions. Departure Departure: Impression: Primary Impression: Unilateral headache Additional Impression: Vision loss of left eye Disposition: 05 XFER OTHER Condition: STABLE Referrals: JOYCELYN HOLCOMB APRN (PCP) Problem Qualifiers CASSIA ELLIOTT MD Dec 22, 2016 23:56
[2016-12-23 00:15] LABS: ALBUMIN 3.8 g/dL (3.4-5.0); CALCIUM 8.9 mg/dL (8.5-10.1); CREATININE 1.1 mg/dL (0.7-1.3); GFR 83.8; POTASSIUM 3.7 mmol/L (3.5-5.1); TOTAL BILIRUBIN 0.3 mg/dL (0.2-1.0); TOTAL PROTEIN 7.7 g/dL (6.4-8.2)
[2016-12-23 00:23] LABS: BASO # 0.1 x10^3/uL (0.0-0.2); BASO % 1 % (0-3); EOS # 0.2 x10^3/uL (0.0-0.7); EOS % 2 % (0-3); HEMATOCRIT 43.5 % (39.0-53.0); HEMOGLOBIN 14.6 g/dL (13.0-17.5); LYMPH # 4.3 x10^3/uL (1.0-4.8); LYMPH % 36 % (24-48); MEAN CORPUSCULAR HEMOGLOBIN 30 pg (25-35); MEAN CORPUSCULAR HGB CONC 34 g/dL (31-37); MEAN CORPUSCULAR VOLUME 88 fL (79-100); MONO % 8 % (0-9); NEUT # 6.2 x10^3uL (1.8-7.7); NEUT % 53 % (31-73); PLATELET COUNT 313 x10^3/uL (140-400); RED BLOOD COUNT 4.92 x10^6/uL (4.30-5.70); RED CELL DISTRIBUTION WIDTH 13.7 % (11.5-14.5); WHITE BLOOD COUNT 11.9 x10^3/uL (4.0-11.0)
[2016-12-23 00:50] LABS: SEDIMENTATION RATE 12 (0-15)
[2016-12-23 00:56] LABS: BILIRUBIN,URINE NEG (NEG); CLARITY,URINE CLEAR; COLOR,URINE STRAW; GLUCOSE,URINE NEG (NEG)
[2016-12-23 00:57] LABS: BACTERIA,URINE FEW /HPF (0-FEW); NITRITE,URINE NEG (NEG); SQUAMOUS EPITHELIAL CELL,UR OCC /LPF; UROBILINOGEN,URINE 0.2 mg/dL (0.2 mg/dL); WBC,URINE 0 /HPF (0-4)
[2016-12-23 01:00] VITALS: BP 153/86
[2016-12-23] MEDS ORDERED: methylPREDNISolone SOD SUCC PF 125 MG/2 ML VIAL. IV ONE (01:00)
== END 2016-12-23 02:32 | disposition short-term general hospital (02) ==
LOC: ER 22:42
DX: R51 Headache (principal); R11.0 Nausea; H54.62 Unqualified visual loss, left eye, normal vision right eye; E78.00 Pure hypercholesterolemia, unspecified; I10 Essential (primary) hypertension; F17.210 Nicotine dependence, cigarettes, uncomplicated; G89.29 Other chronic pain
CPT/HCPCS: 36415; 70450; 80053; 81001; 83735; 85027; 85610; 85651; 85730; 86140; 96361; 96374; 96375; 99285; J0780; J1200; J2930; J3010; J7030

== ENCOUNTER 2017-01-14 07:23 | Emergency (ER) | payer OTHER ==
[~2017-01-14] VITALS: Ht 188 cm; Wt 95.3 kg
[2017-01-14 07:28] VITALS: BP 138/75
[2017-01-14] MEDS ORDERED: ONDANSETRON PF 4 MG/2 ML VIAL. IV ONE (08:05)
[2017-01-14] MEDS ORDERED: fentaNYL PF 100 MCG/2 ML VIAL IV ONE (08:05)
--- NOTE | 2017-01-14 08:57 | PHYS DOC ---
General Chief Complaint: HEADACHE Stated Complaint: HEADACHE Time Seen by MD: 07:24 Source: patient Exam Limitations: no limitations Problems: History of Present Illness Initial Comments Patient is a 56-year-old male who comes to the ED complaining of headache. Patient was seen here 2 weeks ago and transferred to [facility] with suspected giant cell arteritis. Biopsy was negative, patient underwent extensive testing and it was determined that an aberrant blood vessel in the eye was causing the symptoms. This was discharged home reportedly on Laurel 5 mg which has been working up until today. Patient denies any new or changing symptoms other than worsening of his pain behind his left eye. No vision changes no fever chills sweats or myalgias no neck pain or focal neurologic deficit. He has an ophthalmology appointment with a vascular specialist this week. Timing/Duration: getting worse, other Severity: severe Modifying Factors: improves with other Associated Symptoms: headaches, other Allergies: Coded Allergies: No Known Drug Allergies (Unverified , 02/01/14) Past Medical History Medical History: hypertension, other (hyperlipidemia) Surgical History: appendectomy, other Social History Smoker: cigarettes Alcohol: none Drugs: none Review of Systems Constitutional: denies chills, denies fever EENTM: see HPI Respiratory: denies cough, denies shortness of breath Cardiovascular: denies chest pain, denies palpitations Gastrointestinal: denies nausea, denies vomiting Musculoskeletal: denies back pain, denies joint swelling, denies neck pain Psychiatric/Neurological: see HPI, headache, denies numbness, denies paresthesia, denies pre-existing deficit, denies seizure, denies tingling, denies weakness Physical Exam General Appearance: WD/WN, severe distress Eyes: bilateral eye normal inspection, bilateral eye PERRL, bilateral eye EOMI Ear, Nose, Throat: hearing grossly normal, normal ENT inspection, normal pharynx Neck: non-tender, supple Respiratory: normal breath sounds, no respiratory distress Cardiovascular: normal peripheral pulses, regular rate, rhythm Back: no CVA tenderness, no vertebral tenderness Extremities: non-tender, normal inspection Neurologic/Psychiatric: 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 I discussed the treatment plan including increasing the dosage of his Laurel he expressed agreement and understanding of same. Departure Time of Disposition: 08:52 Disposition: 01 HOME, SELF-CARE Diagnosis: headache Condition: IMPROVED Patient Instructions: General Headache Without Cause, [id number] Additional Instructions: Rest, no strenuous activity. Avoid bright lights and eye usage (avoid television, Iphone, iPad, screen time, etc). Continue current meds. Increase norco to 10mg, 1-2 as needed. Follow-up with the ophthalmology specialist at by on the as scheduled. Return to the ED with new or changing symptoms. MARTIR RIVERA DO Jan 14, 2017 08:57
[2017-01-14] MEDS ORDERED: HYDROcodone/APAP 10/325 1 TAB TABLET PO ONE (09:10)
[2017-01-14] MEDS ORDERED: ONDANSETRON ODT 4 MG TAB.RAPDIS PO ONE (09:10)
== END 2017-01-14 09:08 | disposition home or self-care (01) ==
LOC: ER 07:23
DX: R51 Headache (principal); I10 Essential (primary) hypertension; E78.5 Hyperlipidemia, unspecified; F17.210 Nicotine dependence, cigarettes, uncomplicated
CPT/HCPCS: 96374; 96375; 99284; J2405; J3010; Q0162

== ENCOUNTER → 2017-01-15 | Outpatient (CLI) | payer OTHER ==
[2017-01-14 07:28] VITALS: BP 138/75
== END | disposition home or self-care (01) ==
LOC: LAB 09:23
PROVIDERS: ATTEND Family Medicine
DX: H15.03 Posterior scleritis (principal)
CPT/HCPCS: 36415; 85651; 86140

== ENCOUNTER 2017-01-29 01:09 | Emergency (ER) | payer OTHER ==
[~2017-01-29] VITALS: Ht 188 cm; Wt 97.5 kg
--- NOTE | 2017-01-29 01:47 | PHYS DOC ---
Past History Past Medical History: High Cholesterol, Hypertension, Migraines, Other Additional Past Medical Histor: CHRONIC BACK PAIN Past Surgical History: Appendectomy, Other Additional Past Surgical Histo: DISC FUSIONS IN LOWER BACK Smoking: Cigar Alcohol Use: Occasionally Drug Use: None Adult General Chief Complaint Chief Complaint: HEADACHE HPI HPI Patient is a 56 year old male who presents with headache. He states they started 4 weeks ago. He was evaluated for Giant Cell arteritis but the biopsy was negative. he was having vision change as well in his left eye when the headaches started. This episode started at 1400 PM on Sunday. Pain is left sided. Dizzy; and photophobic. No nausea or vomiting. No visual change tonight. No numbness or weakness of his extremities. Patient was admitted to [facility] first of December for evaluation of headache and ocular change and had work up performed there. Review of Systems Review of Systems Constitutional: Denies fever or chills Eyes: Denies change in visual acuity, redness, or eye pain HENT: Denies nasal congestion or sore throat Respiratory: Denies cough or shortness of breath Cardiovascular: No chest pain GI: Denies abdominal pain, nausea, vomiting, bloody stools or diarrhea : Denies dysuria or hematuria Musculoskeletal: Denies back pain or joint pain Integument: Denies rash or skin lesions Neurologic: headache (see HPI) , No focal weakness or sensory changes Allergies Allergies Allergies Coded Allergies Type Severity Reaction Last Updated Verified No Known Drug Allergies 02/01/14 No Physical Exam Physical Exam Constitutional: Well developed, well nourished, non-toxic appearance. HENT: Normocephalic, atraumatic, bilateral external ears normal, oropharynx moist, no oral exudates, nose normal. No swelling or pain on palpation of temples. Eyes: PERRLA, EOMI, conjunctiva normal, no discharge. Neck: Normal range of motion, no tenderness, supple, no stridor. Cardiovascular:Heart rate regular rhythm, no murmur Lungs & Thorax: Bilateral breath sounds clear to auscultation Abdomen: Bowel sounds normal, soft, no tenderness, no masses, no pulsatile masses. Skin: Warm, dry, no erythema, no rash. Back: No tenderness, no CVA tenderness. Extremities: No tenderness, no cyanosis, no clubbing, ROM intact, no edema. Neurologic: Alert and oriented X 3, normal motor function, normal sensory function, no focal deficits noted. Psychologic: Affect normal, judgement normal, mood normal. Current Patient Data Vital Signs Vital Signs Date Time Temp Pulse Resp B/P (MAP) Pulse Ox O2 Delivery O2 Flow Rate FiO2 01/29/17 01:09 98.6 86 26 98 Room Air Radiology/Procedures Radiology/Procedures [place] [address] IMAGING REPORT Signed PATIENT: HALLE TADEO ACCOUNT: [id number] : 1960 LOCATION: ER AGE: 56 SEX: M EXAM STATUS: REG ER ORD. PHYSICIAN: MYRNA ZUNIGA MD REASON: headache; left side PROCEDURE: CT HEAD WO CONTRAST CT head without contrast: Reason for examination: Severe headache mostly left-sided. Dizziness today. Comparison is made to previous study dated 12/22/2016. Axial images were obtained through the brain. No contrast was administered. Exposure: One or more of the following individualized dose reduction techniques were utilized for this examination: 1. Automated exposure control 2. Adjustment of the mA and/or kV according to patient size 3. Use of iterative reconstruction technique. Ventricular systems are symmetric and not abnormally dilated. No midline shift is seen. There is no evidence of intracranial hemorrhage. There is a small lacunar infarct in the left basal ganglia region in the anterior limb of the left internal capsule which is unchanged. There is also some focal linear decreased density in the left parietal lobe which is unchanged and probably reflects a chronic area of infarct. No other infarcts, masses or edema are seen. No abnormalities are seen at the orbits. There is some mild mucosal disease in the ethmoid sinuses bilaterally. This shows some improvement. No acute abnormality seen in the skull. IMPRESSION: Chronic appearing lacunar infarct in the left basal ganglia. Chronic appearing infarct in the left parietal lobe. No acute intracranial abnormality. Continued presence of bilateral ethmoid sinus disease with some interval improvement. Electronically signed by: Jennifer Hayden MD (01/29/2017 2:33 AM) [facility] DICTATED AND SIGNED BY: JENNIFER HAYDEN MD DATE: 01/29/17 0228 CC: MYRNA ZUNIGA MD; TERRY MANNING DO ~ Course & Med Decision Making Course & Med Decision Making Pertinent Labs and Imaging studies reviewed. (See chart for details) Evaluated patient. CT head ordered due to increasing pain. Fentanyl IV. 0230 AM: Headache not improved. Dilaudid IV. waiting on CT results. 0240 AM: CT head negative. Will see if pain can be controlled here. 0320AM: headache much improved and patient desires to go home. here. He has an upcoming appt with neurology. Darryl Disclaimer Darryl Disclaimer This chart was dictated in whole or in part using Voice Recognition software in a busy, high-work load, and often noisy Emergency Department environment. It may contain unintended and wholly unrecognized errors or omissions. Departure Departure: Impression: Primary Impression: Head ache Condition: STABLE Referrals: TERRY MANNING DO (PCP) Patient Instructions: General Headache Without Cause Additional Instructions: Keep your appointment with the neurologist MYRNA ZUNIGA MD Jan 29, 2017 01:46
[2017-01-29 01:59] LABS: BASO # 0.1 x10^3/uL (0.0-0.2); BASO % 1 % (0-3); EOS # 0.2 x10^3/uL (0.0-0.7); EOS % 2 % (0-3); HEMATOCRIT 42.1 % (39.0-53.0); HEMOGLOBIN 14.1 g/dL (13.0-17.5); LYMPH # 3.7 x10^3/uL (1.0-4.8); LYMPH % 32 % (24-48); MEAN CORPUSCULAR HEMOGLOBIN 30 pg (25-35); MEAN CORPUSCULAR HGB CONC 34 g/dL (31-37); MEAN CORPUSCULAR VOLUME 89 fL (79-100); MONO # 0.8 x10^3/uL (0.0-1.1); MONO % 7 % (0-9); NEUT # 6.9 x10^3uL (1.8-7.7); NEUT % 59 % (31-73); PLATELET COUNT 276 x10^3/uL (140-400); RED BLOOD COUNT 4.74 x10^6/uL (4.30-5.70); RED CELL DISTRIBUTION WIDTH 14.1 % (11.5-14.5); WHITE BLOOD COUNT 11.8 x10^3/uL (4.0-11.0)
[2017-01-29] MEDS ORDERED: ONDANSETRON PF 4 MG/2 ML VIAL. IV ONE (02:00)
[2017-01-29] MEDS ORDERED: fentaNYL PF 100 MCG/2 ML VIAL IV ONE (02:00)
[2017-01-29] MEDS ORDERED: IV NORMAL SALINE 1,000ML 1,000 ML IV SCH (02:00)
[2017-01-29 02:19] LABS: ALBUMIN 3.3 g/dL (3.4-5.0); CREATININE 1.6 mg/dL (0.7-1.3); DIRECT BILIRUBIN 0.1 mg/dL (0.0-0.2); GFR 54.4; POTASSIUM 3.8 mmol/L (3.5-5.1); TOTAL BILIRUBIN 0.2 mg/dL (0.2-1.0); TOTAL PROTEIN 7.1 g/dL (6.4-8.2)
--- NOTE | 2017-01-29 02:37 | RAD ---
CT head without contrast: Reason for examination: Severe headache mostly left-sided. Dizziness today. Comparison is made to previous study dated 12/22/2016. Axial images were obtained through the brain. No contrast was administered. Exposure: One or more of the following individualized dose reduction techniques were utilized for this examination: 1. Automated exposure control 2. Adjustment of the mA and/or kV according to patient size 3. Use of iterative reconstruction technique. Ventricular systems are symmetric and not abnormally dilated. No midline shift is seen. There is no evidence of intracranial hemorrhage. There is a small lacunar infarct in the left basal ganglia region in the anterior limb of the left internal capsule which is unchanged. There is also some focal linear decreased density in the left parietal lobe which is unchanged and probably reflects a chronic area of infarct. No other infarcts, masses or edema are seen. No abnormalities are seen at the orbits. There is some mild mucosal disease in the ethmoid sinuses bilaterally. This shows some improvement. No acute abnormality seen in the skull. IMPRESSION: Chronic appearing lacunar infarct in the left basal ganglia. Chronic appearing infarct in the left parietal lobe. No acute intracranial abnormality. Continued presence of bilateral ethmoid sinus disease with some interval improvement. Electronically signed by: Jennifer Sheridan MD (01/29/2017 2:33 AM) [facility]
[2017-01-29] MEDS ORDERED: HYDROmorphone PF 1 MG/ML DISP.SYRIN IV ONE (03:00)
[2017-01-29 03:08] LABS: SEDIMENTATION RATE 11 (0-15)
[2017-01-29 03:21] VITALS: BP 142/82
== END 2017-01-29 03:32 | disposition home or self-care (01) ==
LOC: ER 01:09
DX: R51 Headache (principal); R42 Dizziness and giddiness; H53.142 Visual discomfort, left eye; E78.00 Pure hypercholesterolemia, unspecified; I10 Essential (primary) hypertension; G43.909 Migraine, unspecified, not intractable, without status migrainosus; G89.29 Other chronic pain; F17.210 Nicotine dependence, cigarettes, uncomplicated
CPT/HCPCS: 36415; 70450; 80048; 80076; 85027; 85651; 96361; 96374; 96375; 99285; J1170; J2405; J3010; J7030

== ENCOUNTER 2017-02-25 12:28 | Emergency (ER) | payer OTHER ==
[~2017-02-25] VITALS: Ht 188 cm; Wt 97.5 kg
[2017-02-25 12:32] VITALS: BP 142/82
[2017-02-25] MEDS ORDERED: HYDR-971 PO (13:24)
--- NOTE | 2017-02-25 13:24 | PHYS DOC ---
Past History Past Medical History: High Cholesterol, Hypertension, Migraines, Other Additional Past Medical Histor: CHRONIC BACK PAIN Past Surgical History: Appendectomy, Other Additional Past Surgical Histo: DISC FUSIONS IN LOWER BACK Smoking: Cigar Alcohol Use: Occasionally Drug Use: None Adult General Chief Complaint Chief Complaint: BACK PAIN HPI HPI Patient is a 56-year-old male who has some chronic back pain problems presents ambulatory to the ED with the complaint of back pain down his left leg. 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 His back "popped" and he has pain now going into his left hip and shooting down his left leg. Patient has chronic problems with his left leg. He states "that leg is ". He has weakness and also wears a ankle/foot brace on the left leg at all times. He does not have to use a wheelchair or walker. He states he had a cage implants that failed. He previously had been taking hydrocodone for back pain but he does not have any. He has an appointment with his neurologist tomorrow. He initially stated that he could not have any prescription from me because he has a contract. However, he is not on any daily opiates at this time. Review of Systems Review of Systems Constitutional: Denies fever or chills [] : Denies urinary incontinence Musculoskeletal: As in history of present illness Allergies Allergies Allergies Coded Allergies Type Severity Reaction Last Updated Verified No Known Drug Allergies 02/01/14 No Physical Exam Physical Exam Constitutional: Well developed, well nourished, appears uncomfortable, walks with a limp, appears to not be able to sit comfortably in a chair. HENT: Normocephalic, atraumatic, bilateral external ears normal, nose normal. [ ] Eyes: conjunctiva normal, no discharge. [] Neck: Normal range of motion, no stridor. [] Skin: Warm, dry, no erythema, no rash. [] Back: Healed scar over the lower lumbar area. There does appear to be paraspinous muscle spasm and tension over the lumbar area. Tender to palpation in this area. No skin color changes or deformity noted. Extremities: No tenderness, no cyanosis, no clubbing, ROM intact, no edema. Right leg has normal strength including dorsiflexion of the great toe with normal reflex at the right knee. Left leg has decreased strength which the patient states is chronic. He cannot dorsiflex his great toe which she states is chronic. No DTR at the left knee which the patient states is chronic. Neurologic: Alert and oriented X 3, normal motor function, normal sensory function, no focal deficits noted. [] EKG EKG [] Radiology/Procedures Radiology/Procedures [] Course & Med Decision Making Course & Med Decision Making Pertinent Labs and Imaging studies reviewed. (See chart for details) 56-year-old male with chronic back problems sounds like he had an acute radiculopathy this morning when he bent over. I discussed with the patient that we will give him a dose of hydrocodone and a prescription for 24 hours worse. He was reluctant at first but stated that he does need something, I believe if he indeed has not had any opiate pain medication at home for 3 months now it would be unlikely that a 24-hour prescription would violate a contract. Patient was picked up by his and is not driving. [] Dragon Disclaimer Dragon Disclaimer This chart was dictated in whole or in part using Voice Recognition software in a busy, high-work load, and often noisy Emergency Department environment. It may contain unintended and wholly unrecognized errors or omissions. Departure Departure: Impression: Primary Impression: Low back pain potentially associated with radiculopathy Disposition: 01 HOME, SELF-CARE Condition: STABLE Referrals: TERRY MANNING DO (PCP) Patient Instructions: Back Pain, Adult, [id number] Additional Instructions: As we discussed, I have prescribed 24 hours of opiate pain reliever until you are able to see your doctor tomorrow. No driving while taking these medications. You also may want to try ice and ibuprofen. Scripts Hydrocodone Bit/Acetaminophen (NORCO 5-325 TABLET) 1 Each Tablet 1-2 TAB PO Q4-6HRS for back pain, #12 TAB Prov: RUPERTO LAGUNAS MD 02/25/17 RUPERTO LAGUNAS MD Feb 25, 2017 13:24
[2017-02-25] MEDS ORDERED: HYDROcodone/APAP 10/325 1 TAB TABLET PO ONE (13:45)
== END 2017-02-25 13:50 | disposition home or self-care (01) ==
LOC: ER 12:28
DX: M54.16 Radiculopathy, lumbar region (principal); G89.29 Other chronic pain; I10 Essential (primary) hypertension; E78.00 Pure hypercholesterolemia, unspecified; G43.909 Migraine, unspecified, not intractable, without status migrainosus; F17.210 Nicotine dependence, cigarettes, uncomplicated
CPT/HCPCS: 99283

== ENCOUNTER → 2017-03-03 | Outpatient (CLI) | payer OTHER ==
[2017-02-25 12:32] VITALS: BP 142/82
[~2017-03-03] MED LIST changes: +HYDR-971 PO
[2017-03-03 11:52] LABS: AMPHETAMINE/METHAMPHETAMINE NEG (NEG); BARBITURATES NEG (NEG); BENZODIAZEPINES NEG (NEG); CANNABINOIDS NEG (NEG); COCAINE POS (NEG); METHADONE NEG (NEG); OPIATES POS (NEG); PHENCYCLIDINE NEG (NEG)
== END | disposition home or self-care (01) ==
LOC: LAB 11:27
PROVIDERS: ATTEND Family Medicine
DX: Z51.81 Encounter for therapeutic drug level monitoring (principal); G89.29 Other chronic pain; Z79.891 Long term (current) use of opiate analgesic
CPT/HCPCS: 36415; 80307; G0479

== ENCOUNTER → 2018-11-08 | Outpatient (CLI) | payer OTHER ==
[~2018-11-08] MED LIST changes: +BUPIVACAINE MPF 0.25% 10 ML VIAL. ONE; -HYDR-2762 PO; +HYDR-2765 PO; +HYDR-3165 PO; +HYDR-3166 PO; -HYDR-965 PO; -HYDR-971 PO; +LIDOCAINE 1% PF 30 ML VIAL. ONE
== END | disposition home or self-care (01) ==
LOC: SURG 10:02
PROVIDERS: ATTEND Anesthesiology Pain Medicine
DX: M79.18 Myalgia, other site (principal); M54.16 Radiculopathy, lumbar region; I10 Essential (primary) hypertension; E78.5 Hyperlipidemia, unspecified; M19.90 Unspecified osteoarthritis, unspecified site; Z98.890 Other specified postprocedural states; Z80.1 Family history of malignant neoplasm of trachea, bronchus and lung; Z80.42 Family history of malignant neoplasm of prostate; Z79.2 Long term (current) use of antibiotics; Z79.899 Other long term (current) drug therapy; Z87.891 Personal history of nicotine dependence
CPT/HCPCS: 20552; J2001; J3490

== ENCOUNTER 2019-12-29 18:34 | Emergency (ER) | payer OTHER ==
[~2019-12-29] VITALS: Ht 188 cm; Wt 93.0 kg
[~2019-12-29 18:34] MED LIST changes: -BUPIVACAINE MPF 0.25% 10 ML VIAL. ONE; -LIDOCAINE 1% PF 30 ML VIAL. ONE; +LISI1TAB19 PO; -LISI1TAB5 PO; +SIMV10TA15 PO; -SIMV10TA3 PO
[2019-12-29 18:40] VITALS: BP 170/71
[2019-12-29] MEDS ORDERED: SULF1TAB24 PO (18:52)
--- NOTE | 2019-12-29 18:53 | PHYS DOC ---
Past History Past Medical History: High Cholesterol, Hypertension, Migraines, Other Additional Past Medical Histor: CHRONIC BACK PAIN Past Surgical History: Appendectomy, Other Additional Past Surgical Histo: DISC FUSIONS IN LOWER BACK Smoking: Cigar Alcohol Use: Occasionally Drug Use: None General Adult EDM: Chief Complaint: INSECT BITE HPI: HPI: Patient is a 59-year-old male who presents to ER today for evaluation of a tender spot on his left scapular area. Patient suspected that he was bitten by something 3 days ago, the lesion became more painful and tender today so he came in for evaluation. Patient denies any fever. Review of Systems: Review of Systems: Constitutional: Denies fever or chills Eyes: Denies change in visual acuity HENT: Denies nasal congestion or sore throat Respiratory: Denies cough or shortness of breath Cardiovascular: Denies chest pain or edema GI: Denies abdominal pain, nausea, vomiting, bloody stools or diarrhea : Denies dysuria Musculoskeletal: Denies back pain or joint pain Integument: positive for tender lesion on left scapular area Neurologic: Denies headache, focal weakness or sensory changes Endocrine: Denies polyuria or polydipsia Lymphatic: Denies swollen glands Psychiatric: Denies depression or anxiety Heart Score: Risk Factors: Risk Factors: DM, Current or recent (<one month) smoker, HTN, HLP, family history of CAD, obesity. Risk Scores: Score 0 - 3: 2.5% MACE over next 6 weeks - Discharge Home Score 4 - 6: 20.3% MACE over next 6 weeks - Admit for Clinical Observation Score 7 - 10: 72.7% MACE over next 6 weeks - Early Invasive Strategies Allergies: Allergies: Allergies Coded Allergies Type Severity Reaction Last Updated Verified No Known Drug Allergies 02/01/14 No Physical Exam: PE: Constitutional: Well developed, well nourished, no acute distress, non-toxic appearance. [] HENT: Normocephalic, atraumatic, bilateral external ears normal, oropharynx moist, no oral exudates, nose normal. [] Eyes: PERRLA, EOMI, conjunctiva normal, no discharge. [] Neck: Normal range of motion, no tenderness, supple, no stridor. [] Cardiovascular:Heart rate regular rhythm, no murmur [] Lungs & Thorax: Bilateral breath sounds clear to auscultation [] Abdomen: Bowel sounds normal, soft, no tenderness, no masses, no pulsatile masses. [] Skin: There is a jordan size tender, indurated , erythematous lesion on left scapular area. Back: No tenderness, no CVA tenderness. [] Extremities: No tenderness, no cyanosis, no clubbing, ROM intact, no edema. [] Neurologic: Alert and oriented X 3, normal motor function, normal sensory function, no focal deficits noted. [] Psychologic: Affect normal, judgement normal, mood normal. [] EKG: EKG: [] Radiology/Procedures: Radiology/Procedures: [] Course & Med Decision Making: Course & Med Decision Making Pertinent Labs and Imaging studies reviewed. (See chart for details) Patient is a 59-year-old male who was found to have a early abscess on his left scapular area, too early for I&D, who put him on antibiotics for treatment. Recommend to return to ER if the symptoms get worse. Dragon Disclaimer: Dragon Disclaimer: This electronic medical record was generated, in whole or in part, using a voice recognition dictation system. Departure Departure: Impression: Primary Impression: Abscess Disposition: 01 HOME/RESIDENCE PRIOR TO ADM Condition: STABLE Referrals: LILIYA CARREON MD (PCP) please follow up with your doctor in 2 days for reevaluation. Patient Instructions: Abscess Scripts Sulfamethoxazole/Trimethoprim (BACTRIM DS TABLET) 1 Each Tablet 1 TAB PO BID for abscess for 10 Days, #20 TAB 0 Refills Prov: NITHIN PATTERSON DO 12/29/19 Justification of Admission: Justification of Admission: Justification of Admission Dx: N/A NITHIN PATTERSON DO Dec 29, 2019 18:53
== END 2019-12-29 19:00 | disposition home or self-care (01) ==
LOC: ER 18:34
DX: M86.8X1 Other osteomyelitis, shoulder (principal); E78.00 Pure hypercholesterolemia, unspecified; I10 Essential (primary) hypertension; G43.909 Migraine, unspecified, not intractable, without status migrainosus; G89.29 Other chronic pain; F17.210 Nicotine dependence, cigarettes, uncomplicated; Z90.89 Acquired absence of other organs
CPT/HCPCS: 99283

== ENCOUNTER 2020-04-01 18:58 | Emergency (ER) | payer OTHER ==
[~2020-04-01] VITALS: Ht 188 cm; Wt 93.0 kg
[~2020-04-01 18:58] MED LIST changes: -LISI1TAB19 PO; +LISI1TAB37 PO; +SULF1TAB24 PO
[2020-04-01] MEDS ORDERED: methylPREDNISolone SOD SUCC PF 125 MG/2 ML VIAL. IV ONE (19:30)
[2020-04-01] MEDS ORDERED: hydrALAZINE 20 MG/ML VIAL. IV ONE ×2 (19:30→21:00)
--- NOTE | 2020-04-01 19:49 | PHYS DOC ---
Past History Past Medical History: High Cholesterol, Hypertension, Migraines, Other Additional Past Medical Histor: CHRONIC BACK PAIN, NEUROPATHY Past Surgical History: Appendectomy, Other Additional Past Surgical Histo: DISC FUSIONS IN LOWER BACK, RIGHT SHOULDER Smoking: Cigar Alcohol Use: Occasionally Drug Use: None General Adult EDM: Chief Complaint: BACK PAIN OR INJURY HPI: HPI: Patient is a 59 year old male who presents for evaluation of acute on chronic back pain. Patient has upper back pain between the shoulder blades and also lower lumbar pain. He states the pain does radiate down into his left leg and he has numbness down his left leg as well. Patient has a chronic left foot drop for almost 3 years. Patient denies loss of bowel bladder control, or saddle anesthesia. Patient has had prior back surgery at [facility] a couple of years ago. He states his symptoms are currently worsening. Patient had a CT scan of his back within the past 3 weeks also at [facility]. Pt did have recent follow-up with Dr. Rodriguez his spine surgeon at [facility]. Furthermore he has been seeing Dr. Amado in Neurology for sciatica pain. Patient states he does not have any pain medications currently. Patient denies any urinary symptoms. Symptoms worse with movement or bending. His blood pressure was elevated in triage was elevated at 198/100. Patient denies any chest pain or shortness of air. Review of Systems: Review of Systems: Constitutional: Denies fever or chills Eyes: Denies change in visual acuity HENT: Denies nasal congestion or sore throat Respiratory: Denies cough or shortness of breath Cardiovascular: Denies chest pain or edema GI: Denies abdominal pain, nausea, vomiting, bloody stools or diarrhea : Denies dysuria Musculoskeletal: has back pain no joint pain Integument: Denies rash Neurologic: Denies headache, focal weakness or sensory changes Endocrine: Denies polyuria or polydipsia Lymphatic: Denies swollen glands Psychiatric: Denies depression or anxiety Heart Score: Risk Factors: Risk Factors: DM, Current or recent (<one month) smoker, HTN, HLP, family history of CAD, obesity. Risk Scores: Score 0 - 3: 2.5% MACE over next 6 weeks - Discharge Home Score 4 - 6: 20.3% MACE over next 6 weeks - Admit for Clinical Observation Score 7 - 10: 72.7% MACE over next 6 weeks - Early Invasive Strategies Current Medications: Current Meds: Current Medications Medications (Trade) Dose Ordered Sig/[facility] Start Time Stop Time Status Last Admin Dose Admin Fentanyl Citrate (Fentanyl 2ml Vial) 50 mcg 1X ONCE 04/01/20 19:30 04/01/20 19:31 DC 04/01/20 19:33 50 MCG Hydralazine HCl (Apresoline) 10 mg 1X ONCE 04/01/20 19:30 04/01/20 19:31 DC 04/01/20 19:43 10 MG Methylprednisolone Sodium Succinate (SOLU-Medrol 125MG VIAL) 125 mg 1X ONCE 04/01/20 19:30 04/01/20 19:31 DC 04/01/20 19:35 125 MG Allergies: Allergies: Allergies Coded Allergies Type Severity Reaction Last Updated Verified No Known Drug Allergies 04/01/20 No Physical Exam: PE: Constitutional: Well developed, well nourished, moderate acute distress, non- toxic appearance. [] HENT: Normocephalic, atraumatic, bilateral external ears normal, oropharynx moist, no oral exudates, nose normal. [] Eyes: PERRL, EOMI, conjunctiva normal, no discharge. [] Neck: Normal range of motion, no tenderness, supple, no stridor. [] Cardiovascular:Heart rate regular rhythm, no murmur [] Lungs & Thorax: Bilateral breath sounds clear to auscultation [] Abdomen: Bowel sounds normal, soft, no tenderness, no masses, no pulsatile masses. [] Skin: Warm, dry, no erythema, no rash. [] Back: Mid back paraspinal tenderness, no CVA tenderness, paraspinal tenderness lower lumbar spine. [] Extremities: No tenderness, no cyanosis, no clubbing, ROM intact, no edema. [] Neurologic: Alert and oriented, normal motor function, normal sensory function, no focal deficits noted. No hyperreflexia [] Psychologic: Affect normal, judgement normal, mood normal. [] Current Patient Data: Labs: Laboratory Tests Test 04/01/20 19:25 White Blood Count 11.0 x10^3/uL Red Blood Count 4.69 x10^6/uL Hemoglobin 13.8 g/dL Hematocrit 42.0 % Mean Corpuscular Volume 90 fL Mean Corpuscular Hemoglobin 29 pg Mean Corpuscular Hemoglobin Concent 33 g/dL Red Cell Distribution Width 14.5 % Platelet Count 325 x10^3/uL Neutrophils (%) (Auto) 55 % Lymphocytes (%) (Auto) 34 % Monocytes (%) (Auto) 8 % Eosinophils (%) (Auto) 2 % Basophils (%) (Auto) 1 % Neutrophils # (Auto) 6.1 x10^3uL Lymphocytes # (Auto) 3.8 x10^3/uL Monocytes # (Auto) 0.8 x10^3/uL Eosinophils # (Auto) 0.3 x10^3/uL Basophils # (Auto) 0.1 x10^3/uL Sodium Level 142 mmol/L Potassium Level 3.6 mmol/L Chloride Level 107 mmol/L Carbon Dioxide Level 25 mmol/L Anion Gap 10 Blood Urea Nitrogen 13 mg/dL Creatinine 1.1 mg/dL Estimated GFR (Cockcroft-Gault) 82.9 BUN/Creatinine Ratio 12 Glucose Level 135 mg/dL Calcium Level 9.4 mg/dL Total Bilirubin 0.2 mg/dL Aspartate Amino Transf (AST/SGOT) < 5 U/L Alanine Aminotransferase (ALT/SGPT) 10 U/L Alkaline Phosphatase 104 U/L Troponin I Quantitative < 0.017 ng/mL Total Protein 7.5 g/dL Albumin 3.5 g/dL Albumin/Globulin Ratio 0.9 Current Medications Medications (Trade) Dose Ordered Sig/Taras Route PRN Reason Start Time Stop Time Status Last Admin Dose Admin Fentanyl Citrate (Fentanyl 2ml Vial) 50 mcg 1X ONCE IVP 04/01/20 19:30 04/01/20 19:31 DC 04/01/20 19:33 Methylprednisolone Sodium Succinate (SOLU-Medrol 125MG VIAL) 125 mg 1X ONCE IV 04/01/20 19:30 04/01/20 19:31 DC 04/01/20 19:35 Hydralazine HCl (Apresoline) 10 mg 1X ONCE IV 04/01/20 19:30 04/01/20 19:31 DC 04/01/20 19:43 Fentanyl Citrate (Fentanyl 2ml Vial) 50 mcg 1X ONCE IVP 04/01/20 20:45 04/01/20 20:46 DC 04/01/20 20:43 Iohexol (Omnipaque 350 Mg/ml) 100 ml 1X ONCE IV 04/01/20 20:45 04/01/20 20:46 DC 04/01/20 21:12 Hydralazine HCl (Apresoline) 10 mg 1X ONCE IV 04/01/20 21:00 04/01/20 21:01 DC Vital Signs: Vital Signs Date Time Temp Pulse Resp B/P (MAP) Pulse Ox O2 Delivery O2 Flow Rate FiO2 04/01/20 19:43 181/92 04/01/20 19:09 97.8 81 18 95 EKG: EKG: EKG shows normal sinus rhythm, rate 81, leftward axis, inverted T wave in lead II, aVL, lead I, V5 and V6, not STEMI read at 1946 [] Radiology/Procedures: Radiology/Procedures: [address] [id number] IMAGING REPORT Signed PATIENT: HALLE TADEO RACCOUNT: [id number] : 1960 LOCATION: ER AGE: 59 SEX: M EXAM STATUS: REG ER ORD. PHYSICIAN: BROOKLYN KRUGER DO REASON: Omni 350,91ml IV.Upper and left side back pain,attention aorta PROCEDURE: CT ANGIO CHEST ABD PELVIS PQRS Compliance Statement: One or more of the following individualized dose reduction techniques were utilized for this examination: 1. Automated exposure control 2. Adjustment of the mA and/or kV according to patient size 3. Use of iterative reconstruction technique CT ANGIO CHEST ABD PELVIS Clinical Indication: Reason: Upper and left side back pain,attention aorta Comparison: CT abdomen and pelvis with contrast, January 20172013. Technique: Helical CT imaging of the chest, abdomen, and pelvis is performed after 91 cc of Omnipaque [address] angiogram protocol. 3-D MIP reconstructions of the aorta. Findings: Aortic arch branches are patent. The thoracic aorta is normal caliber. There is no dissection. The abdominal aorta is normal in caliber. There is atherosclerotic calcification and chronic mural thrombus of the infrarenal abdominal aorta and iliac arteries. There is minimal narrowing at the origin of the celiac artery. The SMA is widely patent. Right and left renal arteries are patent. There is a tiny accessory right renal artery. The JENNIFER is patent, small caliber. The iliac arteries are patent. There is probable focal high-grade stenosis of the proximal left common femoral artery. There is moderate narrowing of the right common femoral artery at the bifurcation. There is no central pulmonary embolus. There is thyromegaly. The thyroid is heterogeneous on the left. Small left anterior upper abdomen probably sebaceous cyst. There are subcentimeter bilateral axillary lymph nodes. Subcentimeter mediastinal lymph nodes. There is no adrian adenopathy. There is coronary artery disease. Cardiac size is normal, no pericardial effusion. There is no pleural effusion. Central airways are patent. There are scattered small bulla in the lungs. Minimal atelectasis or scarring in the inferior lingula. Lungs are otherwise clear. Without significant change from prior study, there are 2 lesions with arterial phase hyperenhancement with associated wedge-shaped areas of less intense arterial enhancement in segment 7 of the liver and in segment 2. The lesion in segment 2 measures 1.4 x 2.5 cm. The lesion in segment 7 measures approximately 1.5 x 1 cm. The gallbladder, spleen, pancreas, and kidneys are normal. There is adrenal gland hyperplasia. No obvious abnormality of the stomach. There is a craniocaudal oriented line of metallic densities of the left rectus muscle at the same craniocaudal level of an anterior lumbar spine fusion, therefore probably postsurgical. There is no dilated small bowel. There are a few diverticula of the descending colon. There is a small bowel surgical anastomosis. Appendix is not seen, no secondary signs of appendicitis. The urinary bladder is not well distended, otherwise normal. Prostate and seminal vesicles are normal. There is no pelvic free fluid. There is anterior fusion hardware of L4-L5. There is interbody spacer. There is bilateral L5 spondylolysis. IMPRESSION: 1. There is no aortic dissection. 2. Focal high-grade stenosis of the proximal left common femoral artery and focal moderate narrowing of the right common femoral artery at the bifurcation. 3. No acute pulmonary process. 4. There are 2 hyperenhancing hepatic lesions that are stable or smaller than on the prior study, therefore considered benign. Flash filling hemangiomas or focal nodular hyperplasia are considerations. 5. Thyromegaly. Suggest outpatient thyroid ultrasound if not previously performed. 6. Mild descending colon diverticulosis. Electronically signed by: Lauro Joyce MD (04/01/2020 10:02 PM) [facility] DICTATED AND SIGNED BY: LAURO JOYCE MD DATE: 04/01/202201 CC: NON,STAFF; BROOKLYN KRUGER DO ~ [] Course & Med Decision Making: Course & Med Decision Making Pertinent Labs and Imaging studies reviewed. (See chart for details) 2033 stable, patient states the pain is worsening. Due to location of the pain and significant hypertension CT angio chest abdomen pelvis ordered to evaluate for possible aortic dissection, aneurysm etc. 2109 stable, feeling much better at this time. Patient states pain is controlled. CT scan chest, abdomen and pelvis did not show evidence of an aortic dissection or aneurysm. Considerations were present because of his elevated blood pressure. Blood pressure is now down to 160 over 80s at this time. Patient has been given dose of IV hydralazine. There is a finding of some narrowing of his common femoral artery that will need close follow-up. Patient is amatory without difficulty. I did do a rectal exam on the patient and patient did have good rectal tone. There is no evidence of cauda equina syndrome at this time. The numbness down the left leg is chronic and is consistent with his prior diagnosis of sciatica. Patient was given a prescription for Naprosyn, limited number of [place] and Flexeril. Patient is aware he will likely need to see a vascular surgeon right away regarding that artery narrowing. There is no evidence of acute vascular occlusion to the affected left leg. It is warm to the touch and there is good pulses present. Patient able to ambulate without difficulty Dragon Disclaimer: Darryl Disclaimer: This electronic medical record was generated, in whole or in part, using a voice recognition dictation system. Departure Departure: Impression: Primary Impression: Low back pain Qualified Codes: M54.42 - Lumbago with sciatica, left side; G89.29 - Other chronic pain Additional Impressions: Upper back pain Elevated blood pressure reading Peripheral vascular disease Sciatica Qualified Codes: M54.32 - Sciatica, left side Disposition: HOME/RESIDENCE PRIOR TO ADM Condition: STABLE Referrals: NON,STAFF (PCP) NITHIN REDD MD Patient Instructions: Back Pain, Adult, Hypertension, Peripheral Vascular Disease, Sciatica Additional Instructions: Rest, no heavy lifting. It should be noted that you have some significant narrowing to your left common femoral artery consistent with peripheral vascular disease. This will require close follow-up with a vascular surgeon and referral from your primary care provider. It is likely incidental to the pain that you had this evening. Follow back pain and sciatica instructions. Furthermore keep close track of your blood pressures because they were high initially Scripts Hydrocodone Bit/Acetaminophen (NORCO 5-325 TABLET) 1 Each Tablet 1 TAB PO TID for back pain, #15 TAB Prov: BROOKLYN KRUGER DO 04/01/20 Cyclobenzaprine Hcl (CYCLOBENZAPRINE HCL) 10 Mg Tablet 1 TAB PO TID for back pain/spasm, #30 TAB Prov: BROOKLYN KRUGER DO 04/01/20 Ibuprofen (IBUPROFEN) 800 Mg Tablet 1 TAB PO TID for back pain, #30 TAB Prov: BROOKLYN KRUGER DO 04/01/20 Justification of Admission: Justification of Admission: Justification of Admission Dx: N/A BROOKLYN KRUGER DO Apr 01, 2020 19:49
[2020-04-01 19:59] LABS: BASO # 0.1 x10^3/uL (0.0-0.2); BASO % 1 % (0-3); EOS # 0.3 x10^3/uL (0.0-0.7); EOS % 2 % (0-3); HEMOGLOBIN 13.8 g/dL (13.0-17.5); LYMPH # 3.8 x10^3/uL (1.0-4.8); LYMPH % 34 % (24-48); MEAN CORPUSCULAR HEMOGLOBIN 29 pg (25-35); MEAN CORPUSCULAR HGB CONC 33 g/dL (31-37); MEAN CORPUSCULAR VOLUME 90 fL (79-100); MONO # 0.8 x10^3/uL (0.0-1.1); MONO % 8 % (0-9); NEUT # 6.1 x10^3uL (1.8-7.7); NEUT % 55 % (31-73); PLATELET COUNT 325 x10^3/uL (140-400); RED BLOOD COUNT 4.69 x10^6/uL (4.30-5.70); RED CELL DISTRIBUTION WIDTH 14.5 % (11.5-14.5)
[2020-04-01 20:08] LABS: ANION GAP 10 (6-14); BLOOD UREA NITROGEN 13 mg/dL (8-26); BUN/CREATININE RATIO 12 (6-20); CALCIUM 9.4 mg/dL (8.5-10.1); CARBON DIOXIDE 25 mmol/L (21-32); CHLORIDE 107 mmol/L (98-107); CREATININE 1.1 mg/dL (0.7-1.3); GFR 82.9; GLUCOSE 135 mg/dL (70-99); POTASSIUM 3.6 mmol/L (3.5-5.1); SODIUM 142 mmol/L (136-145)
[2020-04-01 20:13] LABS: ALBUMIN 3.5 g/dL (3.4-5.0); ALBUMIN/GLOBULIN RATIO 0.9 (1.0-1.7); ALK PHOS 104 U/L (46-116); ALT (SGPT) 10 U/L (16-63); AST (SGOT) < 5 U/L (15-37); TOTAL BILIRUBIN 0.2 mg/dL (0.2-1.0); TOTAL PROTEIN 7.5 g/dL (6.4-8.2)
[2020-04-01] MEDS ORDERED: IOHEXOL 350 MG/ML 100 ML VIAL. IV ONE (20:45)
--- NOTE | 2020-04-01 22:05 | RAD ---
PQRS Compliance Statement: One or more of the following individualized dose reduction techniques were utilized for this examination: 1. Automated exposure control 2. Adjustment of the mA and/or kV according to patient size 3. Use of iterative reconstruction technique CT ANGIO CHEST ABD PELVIS Clinical Indication: Reason: Upper and left side back pain,attention aorta Comparison: CT abdomen and pelvis with contrast, January 20172013. Technique: Helical CT imaging of the chest, abdomen, and pelvis is performed after 91 cc of Omnipaque [address] angiogram protocol. 3-D MIP reconstructions of the aorta. Findings: Aortic arch branches are patent. The thoracic aorta is normal caliber. There is no dissection. The abdominal aorta is normal in caliber. There is atherosclerotic calcification and chronic mural thrombus of the infrarenal abdominal aorta and iliac arteries. There is minimal narrowing at the origin of the celiac artery. The SMA is widely patent. Right and left renal arteries are patent. There is a tiny accessory right renal artery. The JENNIFER is patent, small caliber. The iliac arteries are patent. There is probable focal high-grade stenosis of the proximal left common femoral artery. There is moderate narrowing of the right common femoral artery at the bifurcation. There is no central pulmonary embolus. There is thyromegaly. The thyroid is heterogeneous on the left. Small left anterior upper abdomen probably sebaceous cyst. There are subcentimeter bilateral axillary lymph nodes. Subcentimeter mediastinal lymph nodes. There is no adrian adenopathy. There is coronary artery disease. Cardiac size is normal, no pericardial effusion. There is no pleural effusion. Central airways are patent. There are scattered small bulla in the lungs. Minimal atelectasis or scarring in the inferior lingula. Lungs are otherwise clear. Without significant change from prior study, there are 2 lesions with arterial phase hyperenhancement with associated wedge-shaped areas of less intense arterial enhancement in segment 7 of the liver and in segment 2. The lesion in segment 2 measures 1.4 x 2.5 cm. The lesion in segment 7 measures approximately 1.5 x 1 cm. The gallbladder, spleen, pancreas, and kidneys are normal. There is adrenal gland hyperplasia. No obvious abnormality of the stomach. There is a craniocaudal oriented line of metallic densities of the left rectus muscle at the same craniocaudal level of an anterior lumbar spine fusion, therefore probably postsurgical. There is no dilated small bowel. There are a few diverticula of the descending colon. There is a small bowel surgical anastomosis. Appendix is not seen, no secondary signs of appendicitis. The urinary bladder is not well distended, otherwise normal. Prostate and seminal vesicles are normal. There is no pelvic free fluid. There is anterior fusion hardware of L4-L5. There is interbody spacer. There is bilateral L5 spondylolysis. IMPRESSION: 1. There is no aortic dissection. 2. Focal high-grade stenosis of the proximal left common femoral artery and focal moderate narrowing of the right common femoral artery at the bifurcation. 3. No acute pulmonary process. 4. There are 2 hyperenhancing hepatic lesions that are stable or smaller than on the prior study, therefore considered benign. Flash filling hemangiomas or focal nodular hyperplasia are considerations. 5. Thyromegaly. Suggest outpatient thyroid ultrasound if not previously performed. 6. Mild descending colon diverticulosis. Electronically signed by: Brennan Joyce MD (04/01/2020 10:02 PM) [facility]
[2020-04-01] MEDS ORDERED: IBUP800T19 PO (22:24)
[2020-04-01] MEDS ORDERED: HYDR-3165 PO (22:24)
[2020-04-01] MEDS ORDERED: CYCL-331 PO (22:24)
[2020-04-01 22:38] VITALS: BP 160/92
--- NOTE | 2020-04-02 00:29 | EKG ---
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
== END 2020-04-01 22:41 | disposition home or self-care (01) ==
LOC: ER 18:58
DX: M54.42 Lumbago with sciatica, left side (principal); M54.6 Pain in thoracic spine; G89.29 Other chronic pain; I10 Essential (primary) hypertension; I73.9 Peripheral vascular disease, unspecified; E78.00 Pure hypercholesterolemia, unspecified; G43.909 Migraine, unspecified, not intractable, without status migrainosus; F17.210 Nicotine dependence, cigarettes, uncomplicated
CPT/HCPCS: 36415; 71275; 74174; 80053; 84484; 85025; 93005; 96374; 96375; 96376; 99285; J0360; J2930; J3010; Q9967; 99284-25

== ENCOUNTER 2020-05-18 16:35 | Emergency (ER) | payer OTHER ==
[~2020-05-18] VITALS: Ht 188 cm; Wt 99.0 kg
[~2020-05-18 16:35] MED LIST changes: +IBUP800T19 PO
--- NOTE | 2020-05-18 18:27 | PHYS DOC ---
Past History Past Medical History: High Cholesterol, Hypertension Additional Past Medical Histor: CHRONIC BACK PAIN, NEUROPATHY Past Surgical History: Other Additional Past Surgical Histo: pt reports back surgery Smoking: Cigar Additional Smoking Information: 1 cigar per day Alcohol Use: Occasionally Drug Use: None Adult General Chief Complaint Chief Complaint: BACK PAIN OR INJURY [facility] Patient is a 59-year-old male who presents to the emergency room complaining of back pain that radiates down his leg and into his ankle. He has had this previously and has a history of sciatica. He states that he did not do anything for the pain prior to arrival. He has been able to walk, denies any fever, denies any trauma. He does not have any bowel or bladder difficulties. He does not have any paresthesias or weakness. Review of Systems Review of Systems Complete ROS is negative unless otherwise documented in [facility] Allergies Allergies Allergies Coded Allergies Type Severity Reaction Last Updated Verified No Known Drug Allergies 04/01/20 No Physical Exam Physical Exam General: Awake, alert, NAD. Well Nourished, well hydrated. Agitated HEENT: Atraumatic, EOMI, PERRL, airway patent, moist oral mucosa Neck: Supple, trachea midline Respiratory: CTA bilaterally, normal effort, no wheezing/crackles CV: RRR, no murmur, cap refill <2 GI: Soft, nondistended, nontender, no masses MSK: No obvious deformities Skin: Warm, dry, intact Neuro: A&O x3, speech NL, sensory and motor grossly intact, no focal deficits Psych: Normal affect, normal mood, not suicidal or homicidal Current Patient Data Vital Signs Vital Signs Date Time Temp Pulse Resp B/P (MAP) Pulse Ox O2 Delivery O2 Flow Rate FiO2 05/18/20 17:43 98.5 72 20 165/84 (111) 97 Room Air EKG EKG [] Radiology/Procedures Radiology/Procedures [] Heart Score Risk Factors: Risk Factors: DM, Current or recent (<one month) smoker, HTN, HLP, family history of CAD, obesity. Risk Scores: Risk Factors: DM, Current or recent (<one month) smoker, HTN, HLP, family history of CAD, obesity. Course & Med Decision Making Course & Med Decision Making Pertinent Labs and Imaging studies reviewed. (See chart for details) Patient is a 59-year-old male who presents to the Emergency room with non- traumatic back pain. Patient denies bowel incontinence, urinary retention, fever, numbness, weakness. On exam, patient does not have a neurologic deficits, saddle anesthesia, gait difficulty, signs of trauma, or wounds near area of pain. Patient does not have a history of cancer or prolonged steroid use. At this time, patient does not have any signs, symptoms, or risk factors of emergent causes of back pain making cauda equina, spinal abscess, transverse myelitis, fractures, and other causes of emergent back pain highly unlikely. At this time, patient does not need any further work up for their back pain and will be treated symptomatically. Patient's test results and vitals while in the ED were fully reviewed and discussed with the patient. Patient is stable and at this time does not need admission to the hospital. We have discussed strict return precautions and the importance of following up with their Primary Care Physician. Patient stated understanding and was given an opportunity to ask any questions. Patient is in agreement with plan. Dragon Disclaimer Dragon Disclaimer This electronic medical record was generated, in whole or in part, using a voice recognition dictation system. Departure Departure: Impression: Primary Impression: Sciatica Disposition: 01 DC HOME SELF CARE/HOMELESS Condition: STABLE Referrals: NON,STAFF (PCP) Patient Instructions: SCOOTER Dorado MD May 18, 2020 18:27
[2020-05-18] MEDS ORDERED: DEXAMETHASONE SOD PHOS 10 MG/ML VIAL. PO ONE (18:30)
[2020-05-18] MEDS ORDERED: KETOROLAC 60 MG/2 ML VIAL. IM ONE (18:30)
[2020-05-18] MEDS ORDERED: ORPHENADRINE CITRATE 60 MG/2 ML VIAL. IM ONE (18:30)
[2020-05-18] MEDS ORDERED: LIDOCAINE (700MG/PATCH) PATCH. TD SCH (18:45)
[2020-05-18 19:10] VITALS: BP 198/83
[2020-05-18] MEDS ORDERED: PATCH REMOVAL. MC SCH (21:00)
== END 2020-05-18 19:15 | disposition home or self-care (01) ==
LOC: ER 16:35
DX: M54.30 Sciatica, unspecified side (principal); M54.9 Dorsalgia, unspecified; E78.00 Pure hypercholesterolemia, unspecified; I10 Essential (primary) hypertension; G89.29 Other chronic pain; F17.210 Nicotine dependence, cigarettes, uncomplicated
CPT/HCPCS: 96372; 99284; J1100; J1885; J2360

== ENCOUNTER 2020-05-28 02:12 | Emergency (ER) | payer OTHER ==
[~2020-05-28] VITALS: Ht 188 cm; Wt 99.0 kg
--- NOTE | 2020-05-28 02:39 | PHYS DOC ---
Past History Past Medical History: High Cholesterol, Hypertension Additional Past Medical Histor: CHRONIC BACK PAIN, NEUROPATHY Past Surgical History: Other Additional Past Surgical Histo: pt reports back surgery Smoking: Cigar Alcohol Use: Occasionally Drug Use: None Adult General Chief Complaint Chief Complaint: BACK PAIN - NO INJURY HPI HPI Patient is a 59 year old male who presents for chronic back pain. Patient has right lower lumbar pain that has been going on for past 3 weeks without any known inciting event and/or trauma. He states the pain does radiate down into his posterior right leg. Patient denies loss of bowel bladder control, or saddle anesthesia, no other concerning red flag symptoms and back pain. Patient has had prior back surgery at [facility]. Patient currently followed by Dr. Rodriguez his spine surgeon at [facility] and is pending outpatient appointment June 26 but states " that is far too long to go without answers, I need to figure out what is wrong with my back tonight". He is also seeing Dr. Amado in Neurology for sciatica pain in the outpatient setting but does not have follow-up scheduled in the short-term. Patient states he does not have any pain medications currently, has not been taking any NSAIDs and/or Tylenol. Patient denies any urinary symptoms. Symptoms worse with movement or bending. No fever, headache, chest pain, shortness of breath, abdominal pain, changes in bladder or bowel function, loss of bladder or bowel incontinence or saddle anesthesia as mentioned above Review of Systems Review of Systems Fourteen body systems of review of systems have been reviewed. See HPI for pertinent positives and negative responses, other pastor all other systems are negative, non-pertinent or non-contributory Allergies Allergies Allergies Coded Allergies Type Severity Reaction Last Updated Verified No Known Drug Allergies 04/01/20 No Physical Exam Physical Exam Constitutional: Well developed, well nourished, no acute distress, non-toxic appearance. HENT: Normocephalic, atraumatic, bilateral external ears normal, oropharynx moist, no oral exudates, nose normal. Eyes: PERRLA, EOMI, conjunctiva normal, no discharge. Neck: Normal range of motion, no tenderness, supple, no stridor. Cardiovascular: Heart rate regular, sinus rhythm, no murmurs rubs or gallops Lungs & Thorax: Bilateral breath sounds clear to auscultation Abdomen: Bowel sounds normal, soft, no tenderness, no masses, no pulsatile masses. Nonsurgical abdomen, no peritoneal signs Skin: Warm, dry, no erythema, no rash. Back: No CVA tenderness. No tenderness or palpable abnormalities midline over spinous processes of the cervical, thoracic, and lumbar spines. Allodynia with brisk touch to right paralumbar muscles, no obvious visual and/or palpable abnormalities Extremities: No tenderness, no cyanosis, no clubbing, ROM intact, no edema. Neurologic: Alert and oriented X 3, bilateral lower extremities with normal motor & sensory function, no saddle anesthesia, ambulatory on arrival with good muscle tone, no focal deficits noted. Psychologic: Affect normal, judgement normal, mood normal. Current Patient Data Vital Signs Vital Signs Date Time Temp Pulse Resp B/P (MAP) Pulse Ox O2 Delivery O2 Flow Rate FiO2 05/28/20 02:12 98.8 91 18 156/113 (127) 96 Room Air EKG EKG [] Radiology/Procedures Radiology/Procedures [] Heart Score Risk Factors: Risk Factors: DM, Current or recent (<one month) smoker, HTN, HLP, family history of CAD, obesity. Risk Scores: Risk Factors: DM, Current or recent (<one month) smoker, HTN, HLP, family history of CAD, obesity. Course & Med Decision Making Course & Med Decision Making Comprehensive history and physical examination nonconcerning for any emergent and/or surgical pathology Patient here for chronic non-traumatic back pain. Patient denies bowel incontinence, urinary retention, fever, numbness, weakness. On exam, patient does not have a neurologic deficits, saddle anesthesia, gait difficulty, signs of trauma, or wounds near area of pain. Patient does not have a history of cancer or prolonged steroid use. At this time, patient does not have any signs, symptoms, or risk factors of emergent causes of back pain making cauda equina, spinal abscess, transverse myelitis, fractures, and other causes of emergent back pain highly unlikely. At this time, patient does not need any further work up for their back pain and will be treated symptomatically. No indication for further ER intervention/work-up. Patient is stable and at this time does not need admission to the hospital. We have discussed strict return precautions and the importance of following up with their Primary Care Physician and calling Dr. Burns to push up his outpatient follow-up. Strict return precautions were discussed with good understanding by patient, all questions and concerns addressed prior to ER departure in stable condition Dragon Disclaimer Darryl Disclaimer This electronic medical record was generated, in whole or in part, using a voice recognition dictation system. Departure Departure: Impression: Primary Impression: Chronic back pain Disposition: 01 DC HOME SELF CARE/HOMELESS Condition: STABLE Referrals: PCPKARIS (PCP) Patient Instructions: Back Exercises, Chronic Back Pain Additional Instructions: You were evaluated in the Emergency Department today for back pain. Your evaluation suggests no acute abnormalities which require further intervention at this time. - Move around as tolerated but avoiding heavy lifting. ``Bed rest is not recommended nor is it the best treatment for low back pain. - Medications will help control your discomfort: - Ibuprofen (800 mg every 8 hours for pain) with food. - Tylenol - Do not drink alcohol, drive a car, operate machinery, or get up on ladders or heights when taking any prescribed pain medications. - Do not drive home if you received prescribed pain medications here in the ED. Return to the ED immediately if you develop any of the following problems: - Leaking urine or difficulty urinating; - Inability to control your bowels; - New numbness or weakness in your legs or numbness between your legs; - Inability to walk - Fever Scripts Hydrocodone Bit/Acetaminophen (NORCO 5-325 TABLET) 1 Each Tablet 1 TAB PO TID for Severe Pain, #9 TAB Prov: JUNIOR TORRES DO 05/28/20 Cyclobenzaprine Hcl (CYCLOBENZAPRINE HCL) 5 Mg Tablet 1 TAB PO TID for Muscle Spasms, #30 TAB Prov: JUNIOR TORRES DO 05/28/20 Naproxen (NAPROSYN) 500 Mg Tablet 1 TAB PO BID for pain for 15 Days, #30 TAB 0 Refills Prov: JUNIOR TORRES DO 05/28/20 JUNIOR TORRES DO May 28, 2020 02:39
[2020-05-28] MEDS ORDERED: HYDR-3165 PO (02:43)
[2020-05-28] MEDS ORDERED: NAPR-683 PO (02:43)
[2020-05-28] MEDS ORDERED: CYCL5TAB PO (02:43)
[2020-05-28] MEDS ORDERED: HYDROcodone/APAP 7.5/325MG 1 TAB TABLET PO ONE (02:45)
[2020-05-28 03:05] VITALS: BP 136/98
== END 2020-05-28 03:05 | disposition home or self-care (01) ==
LOC: ER 02:12
DX: G89.29 Other chronic pain (principal); M54.5 Low back pain; E78.00 Pure hypercholesterolemia, unspecified; I10 Essential (primary) hypertension; F17.210 Nicotine dependence, cigarettes, uncomplicated
CPT/HCPCS: 99283

== ENCOUNTER 2020-06-01 11:43 | Emergency (ER) | payer OTHER ==
[~2020-06-01] VITALS: Ht 188 cm; Wt 97.0 kg
[~2020-06-01 11:43] MED LIST changes: +CYCL5TAB PO; +NAPR-683 PO
[2020-06-01 11:56] VITALS: BP 133/79
[2020-06-01] MEDS ORDERED: IV NORMAL SALINE 1,000ML 1,000 ML IV ONE (12:15)
[2020-06-01] MEDS ORDERED: IOHEXOL 300 MG/ML 75 ML VIAL. IV ONE (12:30)
--- NOTE | 2020-06-01 12:31 | PHYS DOC ---
Past History Past Medical History: High Cholesterol, Hypertension, Sciatica Additional Past Medical Histor: CHRONIC BACK PAIN, NEUROPATHY Past Surgical History: Other Additional Past Surgical Histo: pt reports back surgery Smoking: Cigar Alcohol Use: Occasionally Drug Use: None General Adult EDM: Chief Complaint: TONGUE SWELLING/INJURY HPI: HPI: Patient is a 59 year old male who presents with throat and tongue swelling that began 2 days ago. Reports right ear pain, right neck pain, orthopnea, and pain with swallowing. Denies drainage. No respiratory distress, no stridor, and patient able to handle secretions. Review of Systems: Review of Systems: Constitutional: Denies fever or chills Eyes: Denies redness or eye pain HENT: Denies nasal congestion. Reports pain with swallowing and right ear pain. Respiratory: Denies cough or shortness of breath Cardiovascular: Denies chest pain or palpitations GI: Denies abdominal pain, nausea, or vomiting : Denies dysuria or hematuria Musculoskeletal: Denies back pain or joint pain Integument: Denies rash or skin lesions Neurologic: Denies headache, focal weakness or sensory changes Complete systems were reviewed and found to be within normal limits, except as documented in this note. Current Medications: Current Meds: Current Medications Medications (Trade) Dose Ordered Sig/Taras Start Time Stop Time Status Last Admin Dose Admin Dexamethasone Sodium Phosphate (Decadron) 10 mg 1X ONCE 06/01/20 12:15 06/01/20 12:16 UNV Iohexol (Omnipaque 300 Mg/ml) 75 ml 1X ONCE 06/01/20 12:30 06/01/20 12:31 UNV Sodium Chloride 1,000 ml @ 1,000 mls/hr 1X ONCE 06/01/20 12:15 06/01/20 13:14 UNV Allergies: Allergies: Allergies Coded Allergies Type Severity Reaction Last Updated Verified No Known Drug Allergies 06/01/20 No Physical Exam: PE: Constitutional: Well developed, well nourished, no acute distress, non-toxic appearance HENT: Normocephalic, atraumatic. Pain to palpation of the neck, patient reports it is worse on the right. Could not visualize back of throat. Pain with swallowing. Eyes: Conjunctiva normal, no discharge Neck: Normal range of motion, no tenderness, supple Lungs & Thorax: No respiratory distress, equal chest rise and fall Abdomen: Soft, no tenderness Skin: Warm, dry, no erythema, no rash Back: No tenderness, no CVA tenderness Extremities: No tenderness, ROM intact, no edema Neurologic: Alert and oriented X 3, normal motor function, normal sensory function, no focal deficits noted Psychologic: Affect normal, judgment normal Current Patient Data: Vital Signs: Vital Signs Date Time Temp Pulse Resp B/P (MAP) Pulse Ox O2 Delivery O2 Flow Rate FiO2 06/01/20 11:56 98.7 73 18 133/79 (97) 96 Room Air Course & Med Decision Making: Course & Med Decision Making Pertinent Labs and Imaging studies reviewed. (See chart for details) [] Dragon Disclaimer: [employer] Disclaimer: This electronic medical record was generated, in whole or in part, using a voice recognition dictation system. Departure Departure: Impression: Primary Impression: Peritonsillar abscess Disposition: 01 DC HOME SELF CARE/HOMELESS Condition: STABLE Referrals: PCP,NO (PCP) Patient Instructions: Peritonsillar Abscess, [id number] Additional Instructions: Please follow with Dr. Caren Soni (ENT) tomorrow, Sunday06/02/[address] Soni is aware of your condition and expects to see you at this appointment. You may receive a follow-up call to confirm. If you do not recei ve a call here, their phone number is [phone]. [address] [place] [address], [address] [place] [address] Scripts Hydrocodone Bit/Acetaminophen (HYDROCODONE-APAP 7.5-325/15 SOLN ) 15 Ml Solution 10 ML PO PRN Q6HRS PRN for PAIN, #250 ML 0 Refills Prov: HALLE WARD DO 06/01/20 Clindamycin Palmitate Hcl (CLINDAMYCIN PALMITATE HCL) 75 Mg/5 Ml Soln.recon 20 ML PO TID for Peritonsillar Abscess for 7 Days, #450 ML 0 Refills Prov: HALLE WARD DO 06/01/20 HALLE WARD DO Jun 01, 2020 12:31
[2020-06-01 12:36] LABS: BASO # 0.1 x10^3/uL (0.0-0.2); BASO % 1 % (0-3); EOS # 0.3 x10^3/uL (0.0-0.7); EOS % 2 % (0-3); HEMATOCRIT 41.1 % (39.0-53.0); HEMOGLOBIN 13.4 g/dL (13.0-17.5); LYMPH # 3.1 x10^3/uL (1.0-4.8); LYMPH % 21 % (24-48); MEAN CORPUSCULAR HEMOGLOBIN 29 pg (25-35); MEAN CORPUSCULAR HGB CONC 33 g/dL (31-37); MEAN CORPUSCULAR VOLUME 89 fL (79-100); MONO # 1.4 x10^3/uL (0.0-1.1); MONO % 9 % (0-9); NEUT # 10.1 x10^3uL (1.8-7.7); NEUT % 67 % (31-73); PLATELET COUNT 300 x10^3/uL (140-400); RED BLOOD COUNT 4.63 x10^6/uL (4.30-5.70); RED CELL DISTRIBUTION WIDTH 13.7 % (11.5-14.5); WHITE BLOOD COUNT 14.9 x10^3/uL (4.0-11.0)
[2020-06-01 12:56] LABS: POTASSIUM ISTAT 3.6 mmol/L (3.5-5.0)
[2020-06-01 12:57] LABS: HEMOGLOBIN ISTAT 14.3 gm/dL
[2020-06-01] MEDS ORDERED: DEXAMETHASONE SOD PHOS 10 MG/ML VIAL. IV ONE (13:00)
[2020-06-01 13:15] LABS: MONONUCLEOSIS PATIENT NEGATIVE (NEGATIVE)
--- NOTE | 2020-06-01 14:23 | RAD ---
EXAM: CT Neck with IV contrast INDICATION: Reason: sinus pain, congestion, right facial/neck swelling / Spl. Instructions: / History: TECHNIQUE: Multiple contiguous axial images were obtained of the neck with the use of IV contrast. Post-processing reconstructed images were obtained for interpretation. All CT scans performed at this facility utilize dose optimization techniques as appropriate to the exam, including the following: Automated exposure control and adjustment of the mA and/or KV according to patient size (this includes techniques or standardized protocols for targeted exams where dose is indication/reason for exam). IV CONTRAST: Administered COMPARISON: None FINDINGS: INTRACRANIAL STRUCTURES & ORBITS: Unremarkable. AERODIGESTIVE: Asymmetric low density between the soft palate and the right-sided oral tongue is present and could represent a peritonsillar abscess. It measures 2.7 cm AP by 1.1 cm mediolateral and 2.3 cm craniocaudal.. The nasal cavity, nasopharynx, oral cavity, oropharynx, hypopharynx, larynx, and visualized trachea and esophagus demonstrate no masses or abnormal enhancement. Mild uvula edema is noted. CERVICAL LYMPH NODES & SOFT TISSUES: Several right-sided levels to and 3 asymmetrically enlarged cervical lymph nodes are present, largest measuring 10 mm in short axis at level 2. THYROID & SALIVARY GLANDS: Diffuse enlargement of the thyroid gland is present with low density in the medial left thyroid lobe measuring 1.8 cm is noted, likely reflecting a hypodense left thyroid nodule. This would be better evaluated with ultrasound. LUNG APICES: Mild centrilobular pattern emphysematous change is noted. OSSEOUS: No acute or aggressive appearing osseous lesions. There is mucosal thickening in the right sphenoid sinus. The paranasal sinuses and mastoid air cells are otherwise well aerated. IMPRESSION: Mild right level 2 and 3 cervical adenopathy and possible right sided peritonsillar abscess with no discrete solid mass identified on contrast enhanced CT of the neck. Correlate clinically. Discussed with Dr. Christiano Jain by telephone at 2:15 PM on June 01, 2020. Electronically signed by: Caroline Layne MD (06/01/2020 2:20 PM) [id number]
[2020-06-01 14:27] LABS: ALBUMIN 3.4 g/dL (3.4-5.0)
[2020-06-01 14:34] LABS: DIRECT BILIRUBIN 0.1 mg/dL (0.0-0.2); MAGNESIUM 1.9 mg/dL (1.8-2.4); TOTAL BILIRUBIN 0.5 mg/dL (0.2-1.0); TOTAL PROTEIN 6.6 g/dL (6.4-8.2)
[2020-06-01] MEDS ORDERED: KETOROLAC 15 MG/ML VIAL. IVP ONE (15:15)
[2020-06-01] MEDS ORDERED: LIDOCAINE 2% VISCOUS 15 ML SOLUTION. SWSW ONE (15:15)
[2020-06-01] MEDS ORDERED: CLINDAMYCIN 600MG PREMIX 50 ML IV ONE (15:30)
[2020-06-01] MEDS ORDERED: CLIN75SO12 PO (15:50)
[2020-06-01] MEDS ORDERED: HYDR15SO6 PO (15:50)
== END 2020-06-01 16:52 | disposition home or self-care (01) ==
LOC: ER 11:43
DX: J36 Peritonsillar abscess (principal); E78.00 Pure hypercholesterolemia, unspecified; I10 Essential (primary) hypertension; G89.29 Other chronic pain; F17.210 Nicotine dependence, cigarettes, uncomplicated
CPT/HCPCS: 36415; 70491; 80047; 80076; 83605; 83735; 85025; 86308; 87070; 87880; 96361; 96365; 96375; 99285; J1100; J1885; J3010; J3490; J7030; Q9967

== ENCOUNTER 2020-06-09 00:48 | Emergency (ER) | payer OTHER ==
[~2020-06-09] VITALS: Ht 188 cm; Wt 97.0 kg
[~2020-06-09 00:48] MED LIST changes: +CLIN75SO12 PO; +HYDR15SO6 PO
--- NOTE | 2020-06-09 01:16 | PHYS DOC ---
Past History Past Medical History: High Cholesterol, Hypertension, Sciatica Additional Past Medical Histor: CHRONIC BACK PAIN, NEUROPATHY Past Surgical History: Other Additional Past Surgical Histo: pt reports back surgery Smoking: Cigar Alcohol Use: Occasionally Drug Use: None General Adult EDM: Chief Complaint: FLANK PAIN HPI: HPI: Patient is a 59-year-old male coming to the emergency department for 2 days of right-sided flank pain. Patient has no other symptoms, denies any vomiting, diarrhea, urinary complaints. He denies any history of kidney problems or kidney stones. Patient has frequent visits for back pain with sciatica, also has history of peripheral vascular disease on the left. Patient states usually her pain on the right and radiates down his abdomen to his anterior right thigh. He has baseline back pain is related to left lower lumbar and radiates down to his posterior left leg. Review of Systems: Review of Systems: Constitutional: Denies fever or chills Eyes: Denies change in visual acuity HENT: Denies nasal congestion or sore throat Respiratory: Denies cough or shortness of breath Cardiovascular: Denies chest pain or edema GI: Denies abdominal pain, nausea, vomiting, bloody stools or diarrhea : Denies dysuria Musculoskeletal: Denies back pain or joint pain , right flank pain Integument: Denies rash Neurologic: Denies headache, focal weakness or sensory changes Endocrine: Denies polyuria or polydipsia Lymphatic: Denies swollen glands Psychiatric: Denies depression or anxiety Allergies: Allergies: Allergies Coded Allergies Type Severity Reaction Last Updated Verified No Known Drug Allergies 06/01/20 No Physical Exam: PE: Constitutional: Well developed, well nourished, moderate distress, non-toxic appearance. [] HENT: Normocephalic, atraumatic, bilateral external ears normal, oropharynx moist, no oral exudates, nose normal. [] Eyes: PERRLA, EOMI, conjunctiva normal, no discharge. [] Neck: Normal range of motion, no tenderness, supple, no stridor. [] Cardiovascular:Heart rate regular rhythm, no murmur [] Lungs & Thorax: Bilateral breath sounds clear to auscultation [] Abdomen: Bowel sounds normal, soft, no tenderness, no masses, no pulsatile masses. [] Skin: Warm, dry, no erythema, no rash. [] Back: No tenderness, right CVA tenderness, no left CVA tenderness, no point tenderness over spine. Extremities: No tenderness, no cyanosis, no clubbing, ROM intact, no edema. [] Neurologic: Alert and oriented X 3, normal motor function, normal sensory function, no focal deficits noted. [] Psychologic: Affect normal, judgement normal, mood normal. [] Current Patient Data: Vital Signs: Vital Signs Date Time Temp Pulse Resp B/P (MAP) Pulse Ox O2 Delivery O2 Flow Rate FiO2 12/2/20 00:50 98.4 74 18 183/79 (113) 97 Room Air EKG: EKG: [] Radiology/Procedures: Radiology/Procedures: CT ABDOMEN PELVIS WO CONTRAST INDICATION: Reason: Severe right flank pain/stone study. Hx: Appendectomy / Spl. Instructions: / History: EXAM: Noncontrast CT of the abdomen and pelvis. Coronal and sagittal reformatted images were performed. PQRS compliance statement: One or more of the following individualized dose reduction techniques were utilized for this examination: 1. Automated exposure control 2. Adjustment of the mA and/or kV according to patient size 3. Use of iterative reconstruction technique COMPARISON: None FINDINGS: No free air, free fluid, or fluid collection. Lower chest: The visualized lower lungs are aerated. No pleural or pericardial effusion. ABDOMEN: Liver: The noncontrast liver is homogeneous in attenuation. Gallbladder and biliary: Normal gallbladder without radiopaque stone. Normal caliber bile ducts. Spleen: Normal spleen. Pancreas: The noncontrast pancreas is homogeneous in attenuation without peripancreatic inflammatory changes. Adrenal glands: Normal adrenal glands. Kidneys and ureters: No opaque urinary calculi. Normal kidneys and ureters. GI tract: The stomach is decompressed and poorly evaluated. Normal caliber small bowel and colon. Colonic diverticulosis. Appendectomy. Vascular structures: Normal caliber abdominal aorta. Moderate aortoiliac atherosclerotic disease. Lymph nodes: No lymphadenopathy in the abdomen or pelvis. PELVIS: Genitourinary system: Normal bladder. SKELETAL STRUCTURES AND SOFT TISSUES: Degenerative changes of the spine. Anterior instrumentation with interbody spacer at L4-5 IMPRESSION: No hydronephrosis or opaque urinary calculi[] Heart Score: Risk Factors: Risk Factors: DM, Current or recent (<one month) smoker, HTN, HLP, family history of CAD, obesity. Risk Scores: Score 0 - 3: 2.5% MACE over next 6 weeks - Discharge Home Score 4 - 6: 20.3% MACE over next 6 weeks - Admit for Clinical Observation Score 7 - 10: 72.7% MACE over next 6 weeks - Early Invasive Strategies Course & Med Decision Making: Course & Med Decision Making Pertinent Labs and Imaging studies reviewed. (See chart for details) [] Dragon Disclaimer: Dragon Disclaimer: This electronic medical record was generated, in whole or in part, using a voice recognition dictation system. Departure Departure: Impression: Primary Impression: Right flank pain Disposition: 01 DC HOME SELF CARE/HOMELESS Condition: STABLE Referrals: PCP,NO (PCP) Patient Instructions: Flank Pain Scripts Hydrocodone Bit/Acetaminophen (NORCO 5-325 TABLET) 1 Each Tablet 1 TAB PO TID for pain for 7 Days, #20 TAB Prov: VANDA WILLIAMSON MD 06/09/20 VANDA WILLIAMSON MD Jun 09, 2020 01:16
--- NOTE | 2020-06-09 01:43 | RAD ---
CT ABDOMEN PELVIS WO CONTRAST INDICATION: Reason: Severe right flank pain/stone study. Hx: Appendectomy / Spl. Instructions: / History: EXAM: Noncontrast CT of the abdomen and pelvis. Coronal and sagittal reformatted images were performed. PQRS compliance statement: One or more of the following individualized dose reduction techniques were utilized for this examination: 1. Automated exposure control 2. Adjustment of the mA and/or kV according to patient size 3. Use of iterative reconstruction technique COMPARISON: None FINDINGS: No free air, free fluid, or fluid collection. Lower chest: The visualized lower lungs are aerated. No pleural or pericardial effusion. ABDOMEN: Liver: The noncontrast liver is homogeneous in attenuation. Gallbladder and biliary: Normal gallbladder without radiopaque stone. Normal caliber bile ducts. Spleen: Normal spleen. Pancreas: The noncontrast pancreas is homogeneous in attenuation without peripancreatic inflammatory changes. Adrenal glands: Normal adrenal glands. Kidneys and ureters: No opaque urinary calculi. Normal kidneys and ureters. GI tract: The stomach is decompressed and poorly evaluated. Normal caliber small bowel and colon. Colonic diverticulosis. Appendectomy. Vascular structures: Normal caliber abdominal aorta. Moderate aortoiliac atherosclerotic disease. Lymph nodes: No lymphadenopathy in the abdomen or pelvis. PELVIS: Genitourinary system: Normal bladder. SKELETAL STRUCTURES AND SOFT TISSUES: Degenerative changes of the spine. Anterior instrumentation with interbody spacer at L4-5 IMPRESSION: No hydronephrosis or opaque urinary calculi Electronically signed by: Alvaro Celestin MD (06/09/2020 1:40 AM) [facility]
[2020-06-09 02:06] LABS: BASO # 0.1 x10^3/uL (0.0-0.2); BASO % 1 % (0-3); EOS # 0.2 x10^3/uL (0.0-0.7); EOS % 1 % (0-3); HEMATOCRIT 45.5 % (39.0-53.0); HEMOGLOBIN 15.1 g/dL (13.0-17.5); LYMPH # 2.6 x10^3/uL (1.0-4.8); LYMPH % 22 % (24-48); MEAN CORPUSCULAR HEMOGLOBIN 30 pg (25-35); MEAN CORPUSCULAR HGB CONC 33 g/dL (31-37); MEAN CORPUSCULAR VOLUME 89 fL (79-100); MONO # 0.9 x10^3/uL (0.0-1.1); MONO % 7 % (0-9); NEUT # 8.4 x10^3uL (1.8-7.7); NEUT % 69 % (31-73); PLATELET COUNT 407 x10^3/uL (140-400); RED BLOOD COUNT 5.11 x10^6/uL (4.30-5.70); RED CELL DISTRIBUTION WIDTH 13.9 % (11.5-14.5); WHITE BLOOD COUNT 12.2 x10^3/uL (4.0-11.0)
[2020-06-09 02:14] LABS: CALCIUM 8.9 mg/dL (8.5-10.1); CREATININE 1.5 mg/dL (0.7-1.3); POTASSIUM 3.7 mmol/L (3.5-5.1)
[2020-06-09 02:19] LABS: BILIRUBIN,URINE NEG (NEG); CLARITY,URINE CLEAR; COLOR,URINE YELLOW; GLUCOSE,URINE NEG (NEG); NITRITE,URINE NEG (NEG); UROBILINOGEN,URINE 0.2 mg/dL (0.2 mg/dL); WBC,URINE OCC /HPF (0-4)
[2020-06-09 02:20] LABS: BACTERIA,URINE 0 /HPF (0-FEW); SQUAMOUS EPITHELIAL CELL,UR OCC /LPF
[2020-06-09 02:20] LABS: ALBUMIN 3.9 g/dL (3.4-5.0); ALBUMIN/GLOBULIN RATIO 1.1 (1.0-1.7); TOTAL BILIRUBIN 0.2 mg/dL (0.2-1.0); TOTAL PROTEIN 7.6 g/dL (6.4-8.2)
[2020-06-09] MEDS ORDERED: HYDR-3165 PO (02:53)
[2020-06-09] MEDS ORDERED: IV NORMAL SALINE 1,000ML 1,000 ML IV ONE (03:00)
[2020-06-09] MEDS ORDERED: MORPHINE SULFATE 4 MG/ML DISP.SYRIN. IV ONE (03:15)
[2020-06-09 03:42] VITALS: BP 181/103
== END 2020-06-09 03:52 | disposition home or self-care (01) ==
LOC: ER 00:48
DX: R10.9 Unspecified abdominal pain (principal); E78.00 Pure hypercholesterolemia, unspecified; I10 Essential (primary) hypertension; G89.29 Other chronic pain; F17.210 Nicotine dependence, cigarettes, uncomplicated
CPT/HCPCS: 36415; 74176; 80053; 81001; 83690; 85025; 96374; 96375; 99284; J2270; J3010; J7030

== ENCOUNTER 2020-11-12 15:13 | Emergency (ER) | payer OTHER ==
[~2020-11-12] VITALS: Ht 188 cm; Wt 94.5 kg
[~2020-11-12 15:13] MED LIST changes: -LISI-334 PO; +LISI20TA18 PO
[2020-11-12 15:31] VITALS: BP 189/93
[2020-11-12] MEDS ORDERED: HYDROcodone/APAP 7.5/325MG 1 TAB TABLET PO ONE (16:00)
[2020-11-12] MEDS ORDERED: predniSONE 20 MG TABLET PO ONE (16:00)
--- NOTE | 2020-11-12 16:00 | PHYS DOC ---
Past History Past Medical History: No Pertinent History Additional Past Medical Histor: CHRONIC BACK PAIN, NEUROPATHY Past Surgical History: Appendectomy, Other Additional Past Surgical Histo: right shoulder, lumbar spine Smoking: Cigar Additional Smoking Information: 1 cigar/day Alcohol Use: None Drug Use: None General Adult EDM: Chief Complaint: BACK PAIN OR INJURY HPI: HPI: 60-year-old male presents with low back pain and sciatica. The patient has known lumbar disc disease. He has had spinal surgery. He presents today because he was walking down to his laundry room and missed a step. He slipped and hit his buttock straight onto a step. He denies any tailbone pain, but now he has pain in the left low back, left buttocks, and radiation down the posterior thigh to the knee. It is a pulsing sensation in the posterior thigh. Patient does not take any pain medication. He sees pain management for occasional injections. He is not diabetic. He has no other injuries or complaints at this time. Review of Systems: Review of Systems: Constitutional: Denies fever or chills Eyes: Denies change in visual acuity HENT: Denies nasal congestion or sore throat Respiratory: Denies cough or shortness of breath Cardiovascular: Denies chest pain or edema GI: Denies abdominal pain, nausea, vomiting, bloody stools or diarrhea : Denies dysuria Musculoskeletal: Low back pain with left-sided sciatica Integument: Denies rash Neurologic: Denies headache, focal weakness or sensory changes Endocrine: Denies polyuria or polydipsia Lymphatic: Denies swollen glands Psychiatric: Denies depression or anxiety Allergies: Allergies: Allergies Coded Allergies Type Severity Reaction Last Updated Verified No Known Drug Allergies 06/01/20 No Physical Exam: PE: Constitutional: Well developed, well nourished, no acute distress, non-toxic appearance. [] HENT: Normocephalic, atraumatic, bilateral external ears normal, oropharynx moist, no oral exudates, nose normal. [] Eyes: PERRLA, EOMI, conjunctiva normal, no discharge. [] Neck: Normal range of motion, no tenderness, supple, no stridor. [] Cardiovascular:Heart rate regular rhythm, no murmur [] Lungs & Thorax: Bilateral breath sounds clear to auscultation [] Abdomen: Bowel sounds normal, soft, no tenderness, no masses, no pulsatile masses. [] Skin: Warm, dry, no erythema, no rash. [] Back: Lumbar paraspinal muscle spasm bilaterally. [] Extremities: No tenderness, no cyanosis, no clubbing, ROM intact, no edema. [] Neurologic: Alert and oriented X 3, normal motor function, normal sensory function, no focal deficits noted. [] Psychologic: Affect normal, judgement normal, mood normal. [] Current Patient Data: Vital Signs: Vital Signs Date Time Temp Pulse Resp B/P (MAP) Pulse Ox O2 Delivery O2 Flow Rate FiO2 11/12/20 15:31 98.2 64 18 189/93 (125) 98 Room Air EKG: EKG: [] Radiology/Procedures: Radiology/Procedures: [] Impressions: 3 views lumbar spine 11/12/2020 4:01 PM Indication: Reason: fall, previous back surgery / Spl. Instructions: / History: Comparison: CT of the abdomen and pelvis March 10, 2020 Findings: There is transitional sacral anatomy. There is anterior fusion of the fifth and sixth lumbar-type vertebral body. Hardware appears to be grossly intact. 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 No acute fracture or acute alignment abnormality is identified. Vertebral body heights and disc spaces are relatively maintained. No acute soft tissue changes are seen. Coils are noted in the territory of the left inferior epigastric artery. IMPRESSION: No radiographic evidence of acute osseous abnormality identified. Electronically signed by: Anand Bran MD (11/12/2020 4:21 PM) [id number] DICTATED AND SIGNED BY: ANAND BRAN MD DATE: 11/12/20 1617 CC: RAQUEL MATTSON DO; JENNYFER WOOTEN ~MTH0 0 Heart Score: C/O Chest Pain: N/A Risk Factors: Risk Factors: DM, Current or recent (<one month) smoker, HTN, HLP, family history of CAD, obesity. Risk Scores: Score 0 - 3: 2.5% MACE over next 6 weeks - Discharge Home Score 4 - 6: 20.3% MACE over next 6 weeks - Admit for Clinical Observation Score 7 - 10: 72.7% MACE over next 6 weeks - Early Invasive Strategies Course & Med Decision Making: Course & Med Decision Making Pertinent Labs and Imaging studies reviewed. (See chart for details) The patient's x-ray is negative for acute findings. There does not appear to be disruption of his surgical hardware. I will treat the patient with 4 days of prednisone. We will give the first dose in the ED. I gave him 1 [place] 7.5 mg. I also give him a short course of [place] 5/325 for home. He is stable for discharge at this time. [] Dragon Disclaimer: Dragon Disclaimer: This electronic medical record was generated, in whole or in part, using a voice recognition dictation system. Departure Departure: Impression: Primary Impression: Lumbar pain Additional Impression: Sciatica Qualified Codes: M54.32 - Sciatica, left side Disposition: HOME / SELF CARE / HOMELESS Condition: STABLE Referrals: JENNYFER WOOTEN (PCP) Patient Instructions: Sciatica, [id number] Scripts Prednisone (PREDNISONE) 10 Mg Tablet 60 MG PO DAILY for sciatica for 3 Days, #18 TAB Prov: RAQUEL MATTSON DO 11/12/20 Hydrocodone/Acetaminophen (Hydrocodone-Acetamin 5-325 mg) 1 Each Tablet 1-2 EACH PO Q6H PRN for PAIN, #14 TAB Prov: RAQUEL MATTSON DO 11/12/20 RAQUEL MATTSON DO November 12, 2020 16:00
--- NOTE | 2020-11-12 16:23 | RAD ---
3 views lumbar spine 11/12/2020 4:01 PM Indication: Reason: fall, previous back surgery / Spl. Instructions: / History: Comparison: CT of the abdomen and pelvis March 10, 2020 Findings: There is transitional sacral anatomy. There is anterior fusion of the fifth and sixth lumba r-type vertebral body. Hardware appears to be grossly intact. Bilateral spondylolysis appears to be p resent involving the 6 lumbar vertebral body. No acute fracture or acute alignment abnormality is mary ntified. Vertebral body heights and disc spaces are relatively maintained. No acute soft tissue salomon es are seen. Coils are noted in the territory of the left inferior epigastric artery. IMPRESSION: No radiographic evidence of acute osseous abnormality identified. Electronically signed by: Anand Bernard MD (11/12/2020 4:21 PM) [id number]
[2020-11-12] MEDS ORDERED: PRED-220 PO (17:00)
[2020-11-12] MEDS ORDERED: HYDR-2759 PO (17:00)
== END 2020-11-12 17:08 | disposition home or self-care (01) ==
LOC: ER 15:13
DX: M54.42 Lumbago with sciatica, left side (principal); F17.200 Nicotine dependence, unspecified, uncomplicated; W10.9XXA Fall (on) (from) unspecified stairs and steps, initial encounter; Y93.01 Activity, walking, marching and hiking; Y92.89 Other specified places as the place of occurrence of the external cause; Y99.8 Other external cause status
CPT/HCPCS: 72100; 99283; J7512

== ENCOUNTER 2020-11-21 10:29 | Emergency (ER) | payer OTHER ==
[~2020-11-21] VITALS: Ht 188 cm; Wt 94.5 kg
[2020-11-21 10:29] VITALS: BP 174/79
[~2020-11-21 10:29] MED LIST changes: +HYDR-2759 PO; +PRED-220 PO
--- NOTE | 2020-11-21 11:09 | PHYS DOC ---
Past History Past Medical History: High Cholesterol, Hypertension Additional Past Medical Histor: CHRONIC BACK PAIN, NEUROPATHY Past Surgical History: Appendectomy, Other Additional Past Surgical Histo: right shoulder, lumbar spine Smoking: Cigar Alcohol Use: Occasionally Drug Use: None General Adult EDM: Chief Complaint: MULTIPLE COMPLAINTS HPI: HPI: Patient is a 60-year-old male coming in for back pain that radiates to his left groin and testicle. Patient has a history of chronic back pain since having back surgery. Does not take anything for it does not take any medication for pain today. Patient states that the pain woke him up yesterday morning. Is usually radiates down his leg but not to his groin. Denies any other recent illness, falls, or heavy lifting Review of Systems: Review of Systems: All other systems within normal limits except for as noted in the HPI Allergies: Allergies: Allergies Coded Allergies Type Severity Reaction Last Updated Verified No Known Drug Allergies 06/01/20 No Physical Exam: PE: Constitutional: Well developed, well nourished, moderate acute distress, non- toxic appearance. [] HENT: Normocephalic, atraumatic, bilateral external ears normal, nose normal. [] Eyes: PERRLA, conjunctiva normal, no discharge. [] Neck: No rigidity, supple, no stridor. [] Cardiovascular: Regular rate and rhythm, brisk cap refill [] Lungs & Thorax: Non labored symmetric respirations, no tachypnea or respiratory distress [] Abdomen: Soft, nondistended, left inguinal tenderness, normal testicles, no pa lpable hernias. Skin: Warm, dry, no erythema, no rash. [] Back: Unremarkable, no step-offs or deformities, diffuse bilateral tenderness and CVA tenderness Extremities: No deformities, range of motion grossly intact, no lower extremity edema [] Neurologic: Alert and oriented X 3, no focal deficits noted. [] Psychologic: Affect normal, judgement normal, mood normal. [] Current Patient Data: Vital Signs: Vital Signs Date Time Temp Pulse Resp B/P (MAP) Pulse Ox O2 Delivery O2 Flow Rate FiO2 11/21/20 10:29 98.3 65 16 174/79 (110) 97 Room Air EKG: EKG: [] Radiology/Procedures: Radiology/Procedures: CT abdomen pelvis with contrast. HISTORY: Left lower quadrant pain CT abdomen pelvis was done using 75 mL Omnipaque 300 contrast. Lung bases are clear except for slight atelectasis.. There is no effusion. Liver is normal in appearance. There is no calcified gallstone. Spleen and adrenal glands are unremarkable. There is no mass or hydronephrosis in the kidneys. Pancreas is normal. There is no free air or ascites. There is no bowel obstruction. There is not evidence of a diverticulitis. Patient had previous lumbar fusion at L5-4-5. There is spondylolysis at L5 without significant subluxation. Patient had previous bowel surgery without obstruction. IMPRESSION: 1. Previous lumbar fusion L4-5. 2. 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 3. No abdominal or pelvic mass noted. 4. No bowel obstruction. 5. No other acute finding. [] Heart Score: C/O Chest Pain: No Risk Factors: Risk Factors: DM, Current or recent (<one month) smoker, HTN, HLP, family history of CAD, obesity. Risk Scores: Score 0 - 3: 2.5% MACE over next 6 weeks - Discharge Home Score 4 - 6: 20.3% MACE over next 6 weeks - Admit for Clinical Observation Score 7 - 10: 72.7% MACE over next 6 weeks - Early Invasive Strategies Course & Med Decision Making: Course & Med Decision Making Pain improved, no acute intra-abdominal findings Pertinent Labs and Imaging studies reviewed. (See chart for details) [] Wolfgangon Disclaimer: Wolfgangon Disclaimer: This electronic medical record was generated, in whole or in part, using a voice recognition dictation system. Departure Departure: Impression: Primary Impression: Lumbar radicular pain Disposition: HOME / SELF CARE / HOMELESS Condition: IMPROVED Referrals: JENNYFER WOOTEN (PCP) Patient Instructions: Lumbosacral Radiculopathy Scripts Cyclobenzaprine Hcl (CYCLOBENZAPRINE HCL) 5 Mg Tablet 1-2 TAB PO PRN TID PRN for MUSCLE SPASMS for 5 Days, #15 TAB Prov: VANDA WILLIAMSON MD 11/21/20 Gabapentin (GABAPENTIN ) 300 Mg Capsule 300 MG PO TID for NEUROGENIC PAIN for 10 Days, #30 CAP Prov: VANDA WILLIAMSON MD 11/21/20 Ibuprofen (IBUPROFEN) 800 Mg Tablet 1 TAB PO TID PRN for PAIN, #30 TAB Prov: VANDA WILLIAMSON MD 11/21/20 VANDA WILLIAMSON MD November 21, 2020 11:09
[2020-11-21] MEDS ORDERED: ONDANSETRON PF 4 MG/2 ML VIAL. IVP ONE (11:15)
[2020-11-21] MEDS ORDERED: IOHEXOL 300 MG/ML 75 ML VIAL. IV ONE (11:15)
[2020-11-21] MEDS ORDERED: KETOROLAC 15 MG/ML VIAL. IVP ONE (11:15)
[2020-11-21 12:02] LABS: BASO # 0.1 x10^3/uL (0.0-0.2); BASO % 1 % (0-3); EOS # 0.2 x10^3/uL (0.0-0.7); EOS % 2 % (0-3); HEMATOCRIT 45.5 % (39.0-53.0); HEMOGLOBIN 15.3 g/dL (13.0-17.5); LYMPH # 2.8 x10^3/uL (1.0-4.8); LYMPH % 27 % (24-48); MEAN CORPUSCULAR HEMOGLOBIN 30 pg (25-35); MEAN CORPUSCULAR HGB CONC 34 g/dL (31-37); MEAN CORPUSCULAR VOLUME 88 fL (79-100); MONO % 10 % (0-9); NEUT # 6.1 x10^3uL (1.8-7.7); NEUT % 60 % (31-73); PLATELET COUNT 335 x10^3/uL (140-400); RED BLOOD COUNT 5.15 x10^6/uL (4.30-5.70); RED CELL DISTRIBUTION WIDTH 14.7 % (11.5-14.5); WHITE BLOOD COUNT 10.1 x10^3/uL (4.0-11.0)
[2020-11-21 12:18] LABS: ALBUMIN 3.7 g/dL (3.4-5.0); ALBUMIN/GLOBULIN RATIO 0.9 (1.0-1.7); CALCIUM 9.2 mg/dL (8.5-10.1); CREATININE 1.1 mg/dL (0.7-1.3); GFR 82.6; POTASSIUM 4.2 mmol/L (3.5-5.1); TOTAL BILIRUBIN 0.3 mg/dL (0.2-1.0); TOTAL PROTEIN 7.6 g/dL (6.4-8.2)
--- NOTE | 2020-11-21 12:49 | RAD ---
CT abdomen pelvis with contrast. HISTORY: Left lower quadrant pain CT abdomen pelvis was done using 75 mL Omnipaque 300 contrast. Lung bases are clear except for slight atelectasis.. There is no effusion. Liver is normal in appearance. There is no calcified gallstone. Spleen and adrenal glands are unremarkable. There is no mass or hydronephrosis in the kidneys. Pancre as is normal. There is no free air or ascites. There is no bowel obstruction. There is not evidence o f a diverticulitis. Patient had previous lumbar fusion at L5-4-5. There is spondylolysis at L5 withou t significant subluxation. Patient had previous bowel surgery without obstruction. IMPRESSION: 1. Previous lumbar fusion L4-5. 2. 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 3. No abdominal or pelvic mass noted. 4. No bowel obstruction. 5. No other acute finding. PQRS Compliance Statement: One or more of the following individualized dose reduction techniques were utilized for this examinat ion: 1. Automated exposure control 2. Adjustment of the mA and/or kV according to patient size 3. Use of iterative reconstruction technique Electronically signed by: Humphrey Mccullough MD (11/21/2020 12:47 PM) [facility]
[2020-11-21 13:16] LABS: BACTERIA,URINE 0 /HPF (0-FEW); BILIRUBIN,URINE NEG (NEG); CLARITY,URINE CLEAR; COLOR,URINE YELLOW; GLUCOSE,URINE NEG (NEG); NITRITE,URINE NEG (NEG); RBC,URINE OCC /HPF (0-2); SQUAMOUS EPITHELIAL CELL,UR FEW /LPF; UROBILINOGEN,URINE 0.2 mg/dL (0.2 mg/dL); WBC,URINE OCC /HPF (0-4)
[2020-11-21] MEDS ORDERED: ORPHENADRINE CITRATE 60 MG/2 ML VIAL. IM ONE (13:30)
[2020-11-21] MEDS ORDERED: IBUP800T19 PO (13:44)
[2020-11-21] MEDS ORDERED: CYCL5TAB PO (13:44)
[2020-11-21] MEDS ORDERED: GABA-586 PO (13:44)
== END 2020-11-21 14:02 | disposition home or self-care (01) ==
LOC: ER 10:29
DX: M54.16 Radiculopathy, lumbar region (principal); R10.32 Left lower quadrant pain
CPT/HCPCS: 36415; 74177; 80053; 81001; 85025; 96372; 96374; 96375; 96376; 99285; J1885; J2360; J2405; J3010

== ENCOUNTER 2020-12-13 08:23 | Emergency (ER) | payer OTHER ==
[~2020-12-13] VITALS: Ht 188 cm; Wt 94.5 kg
[~2020-12-13 08:23] MED LIST changes: +GABA-586 PO
[2020-12-13] MEDS ORDERED: MORPHINE SULFATE 4 MG/ML DISP.SYRIN. IV ONE (09:15)
[2020-12-13] MEDS ORDERED: IV NORMAL SALINE 1,000ML 1,000 ML IV ONE (09:15)
[2020-12-13 09:30] LABS: BASO # 0.1 x10^3/uL (0.0-0.2); BASO % 1 % (0-3); EOS # 0.3 x10^3/uL (0.0-0.7); EOS % 3 % (0-3); HEMATOCRIT 45.5 % (39.0-53.0); HEMOGLOBIN 15.1 g/dL (13.0-17.5); LYMPH # 3.9 x10^3/uL (1.0-4.8); LYMPH % 40 % (24-48); MEAN CORPUSCULAR HEMOGLOBIN 30 pg (25-35); MEAN CORPUSCULAR HGB CONC 33 g/dL (31-37); MEAN CORPUSCULAR VOLUME 89 fL (79-100); MONO % 11 % (0-9); NEUT # 4.6 x10^3uL (1.8-7.7); NEUT % 46 % (31-73); PLATELET COUNT 338 x10^3/uL (140-400); RED BLOOD COUNT 5.09 x10^6/uL (4.30-5.70); RED CELL DISTRIBUTION WIDTH 14.6 % (11.5-14.5); WHITE BLOOD COUNT 9.9 x10^3/uL (4.0-11.0)
[2020-12-13] MEDS ORDERED: CONTRAST GIVEN. MC PRN (09:30)
[2020-12-13] MEDS ORDERED: ONDANSETRON PF 4 MG/2 ML VIAL. IVP ONE (09:30)
[2020-12-13] MEDS ORDERED: IOHEXOL 300 MG/ML 75 ML VIAL. IV ONE (09:30)
--- NOTE | 2020-12-13 09:31 | PHYS DOC ---
Past History Past Medical History: High Cholesterol, Hypertension Additional Past Medical Histor: CHRONIC BACK PAIN, NEUROPATHY Past Surgical History: Appendectomy, Other Additional Past Surgical Histo: right shoulder, lumbar spine Smoking: Cigar Alcohol Use: Occasionally Drug Use: None General Adult EDM: Chief Complaint: ABDOMINAL PAIN HPI: HPI: 60-year-old male presents with abdominal pain. His abdominal pain started after eating bread pudding that he bought from a local store. Patient thought it would improve or the bowel movement would make it better. Nothing seemed to improve his pain. He has had nausea but no vomiting. He describes the pain as an intense cramping 8 out of 10. He had a bowel movement yesterday. Denies dysuria, urinary frequency, fever or chills. He does have a history of back surgery with access from the abdomen. He also had an abdominal surgery many years ago with some kind of bowel resection. Review of Systems: Review of Systems: Constitutional: Denies fever or chills Eyes: Denies change in visual acuity HENT: Denies nasal congestion or sore throat Respiratory: Denies cough or shortness of breath Cardiovascular: Denies chest pain or edema GI: Abdominal pain, nausea. Denies vomiting, bloody stools or diarrhea : Denies dysuria Musculoskeletal: Denies back pain or joint pain Integument: Denies rash Neurologic: Denies headache, focal weakness or sensory changes Endocrine: Denies polyuria or polydipsia Lymphatic: Denies swollen glands Psychiatric: Denies depression or anxiety Current Medications: Current Meds: Current Medications Medications (Trade) Dose Ordered Sig/Taras Start Time Stop Time Status Last Admin Dose Admin Info (Do NOT chart on this entry -- for MONITORING) 1 each PRN DAILY PRN 12/13/20 09:30 12/15/20 09:29 Iohexol (Omnipaque 300 Mg/ml) 75 ml 1X ONCE 12/13/20 09:30 12/13/20 09:31 Morphine Sulfate (Morphine 4mg Syringe) 4 mg 1X ONCE 12/13/20 09:15 12/13/20 09:20 DC 12/13/20 09:26 4 MG Sodium Chloride 1,000 ml @ 1,000 mls/hr 1X ONCE 12/13/20 09:15 12/13/20 10:14 12/13/20 09:26 1,000 MLS/HR Allergies: Allergies: Allergies Coded Allergies Type Severity Reaction Last Updated Verified No Known Drug Allergies 06/01/20 No Physical Exam: PE: Constitutional: Well developed, well nourished, no acute distress, non-toxic appearance. [] HENT: Normocephalic, atraumatic, bilateral external ears normal, oropharynx moist, no oral exudates, nose normal. [] Eyes: PERRLA, EOMI, conjunctiva normal, no discharge. [] Neck: Normal range of motion, no tenderness, supple, no stridor. [] Cardiovascular:Heart rate regular rhythm, no murmur [] Lungs & Thorax: Bilateral breath sounds clear to auscultation [] Abdomen: Bowel sounds normal, soft, periumbilical tenderness with guarding, no masses, no pulsatile masses. [] Skin: Warm, dry, no erythema, no rash. [] Back: No tenderness, no CVA tenderness. [] Extremities: No tenderness, no cyanosis, no clubbing, ROM intact, no edema. [] Neurologic: Alert and oriented X 3, normal motor function, normal sensory function, no focal deficits noted. [] Psychologic: Affect normal, judgement normal, mood normal. [] Current Patient Data: Vital Signs: Vital Signs Date Time Temp Pulse Resp B/P (MAP) Pulse Ox O2 Delivery O2 Flow Rate FiO2 12/13/20 09:26 16 98 12/13/20 08:30 98.3 82 174/79 (110) Room Air EKG: EKG: [] Radiology/Procedures: Radiology/Procedures: [] Impressions: INDICATION: Reason: umbilical pain / Spl. Instructions: / History: . COMPARISON: November 21, 2020 TECHNIQUE: Axial CT images obtained through the abdomen and pelvis with contrast. One or more of the following individualized dose reduction techniques were utilized for this examination: 1. Automated exposure control; 2. Adjustment of the mA and/or kV according to patient size; 3. Use of iterative reconstruction technique. FINDINGS: Subcutaneous cystic structure at the left upper abdomen anteriorly measuring approximately 13 mm. Could be from a skin lesion such as sebaceous cyst. Multifocal plaque throughout the vasculature. No intrahepatic bile duct dilation. No peripancreatic fluid collection. Spleen is unremarkable. No hydronephrosis. Urinary bladder is partially distended. Thickening of the bilateral adrenal glands. Metallic density structure seen within the left anterior aspect of the abdomen at the rectus sheath region which was also seen on prior. No periappendiceal inflammatory changes. No dilated loops of bowel to suggest obstruction. Medial to the right-sided colon there is prominent lymph nodes measuring up to about 9 mm short axis. No dilated loops of bowel to suggest obstruction. Degenerative changes the spine. Anterior spinal fusion changes at L4-5. Pars defect L5. IMPRESSION: * No evidence of bowel obstruction. * No hydronephrosis. Electronically signed by: Freddie Soni MD (12/13/2020 10:14 AM) [id number] DICTATED AND SIGNED BY: FREDDIE SONI MD DATE: 12/13/20 1004 CC: RAQUEL MATTSON DO; JENNYFER WOOTEN ~MTH0 0 Heart Score: C/O Chest Pain: N/A Risk Factors: Risk Factors: DM, Current or recent (<one month) smoker, HTN, HLP, family history of CAD, obesity. Risk Scores: Score 0 - 3: 2.5% MACE over next 6 weeks - Discharge Home Score 4 - 6: 20.3% MACE over next 6 weeks - Admit for Clinical Observation Score 7 - 10: 72.7% MACE over next 6 weeks - Early Invasive Strategies Course & Med Decision Making: Course & Med Decision Making Pertinent Labs and Imaging studies reviewed. (See chart for details) The patient CT scan is negative for acute findings. This could be food related. He may just be getting a viral illness. Either way does not appear to be a life-threatening illness at this time. He is stable for discharge. [] Dragon Disclaimer: Dragon Disclaimer: This electronic medical record was generated, in whole or in part, using a voice recognition dictation system. Departure Departure: Impression: Primary Impression: Abdominal pain Disposition: HOME / SELF CARE / HOMELESS Condition: STABLE Referrals: JENNYFER WOOTEN (PCP) Patient Instructions: Abdominal Pain (Nonspecific) RAQUEL MATSTON DO Dec 13, 2020 09:31
[2020-12-13 09:35] LABS: CALCIUM 9.3 mg/dL (8.5-10.1); CREATININE 1.2 mg/dL (0.7-1.3); GFR 74.7; POTASSIUM 3.7 mmol/L (3.5-5.1)
[2020-12-13 09:41] LABS: ALBUMIN 3.5 g/dL (3.4-5.0); ALBUMIN/GLOBULIN RATIO 0.9 (1.0-1.7); TOTAL BILIRUBIN 0.4 mg/dL (0.2-1.0); TOTAL PROTEIN 7.5 g/dL (6.4-8.2)
--- NOTE | 2020-12-13 10:17 | RAD ---
INDICATION: Reason: umbilical pain / Spl. Instructions: / History: . COMPARISON: November 21, 2020 TECHNIQUE: Axial CT images obtained through the abdomen and pelvis with contrast. One or more of the following individualized dose reduction techniques were utilized for this examinat ion: 1. Automated exposure control; 2. Adjustment of the mA and/or kV according to patient size; 3 . Use of iterative reconstruction technique. FINDINGS: Subcutaneous cystic structure at the left upper abdomen anteriorly measuring approximately 13 mm. Cou ld be from a skin lesion such as sebaceous cyst. Multifocal plaque throughout the vasculature. No intrahepatic bile duct dilation. No peripancreatic fluid collection. Spleen is unremarkable. No hydronephrosis. Urinary bladder is partially distended. Thickening of the bilateral adrenal glands. Metallic density structure seen within the left anterior aspect of the abdomen at the rectus sheath r egion which was also seen on prior. No periappendiceal inflammatory changes. No dilated loops of bowel to suggest obstruction. Medial to the right-sided colon there is prominent lymph nodes measuring up to about 9 mm short axis. No dilated loops of bowel to suggest obstruction. Degenerative changes the spine. Anterior spinal fusion changes at L4-5. Pars defect L5. IMPRESSION: * No evidence of bowel obstruction. * No hydronephrosis. Electronically signed by: Remintgon Soni MD (12/13/2020 10:14 AM) [id number]
[2020-12-13] MEDS ORDERED: ONDA4TAB12 PO (11:12)
[2020-12-13 11:19] VITALS: BP 140/75
== END 2020-12-13 11:20 | disposition home or self-care (01) ==
LOC: ER 08:23
DX: R10.84 Generalized abdominal pain (principal); E78.5 Hyperlipidemia, unspecified; I10 Essential (primary) hypertension; F17.200 Nicotine dependence, unspecified, uncomplicated
CPT/HCPCS: 36415; 74177; 80053; 83690; 85025; 96361; 96374; 96375; 99285; J2270; J2405; J7030; Q9967

== ENCOUNTER 2020-12-30 18:23 | Emergency (ER) | payer OTHER ==
[~2020-12-30] VITALS: Ht 188 cm; Wt 91.0 kg
[~2020-12-30 18:23] MED LIST changes: +ONDA4TAB12 PO
--- NOTE | 2020-12-30 18:45 | PHYS DOC ---
Past History Past Medical History: High Cholesterol, Hypertension Additional Past Medical Histor: CHRONIC BACK PAIN, NEUROPATHY Past Surgical History: Appendectomy, Other Additional Past Surgical Histo: right shoulder, lumbar spine Smoking: Cigar Alcohol Use: Occasionally Drug Use: None Adult General Chief Complaint Chief Complaint: POST-OP PROBLEM HPI HPI This is a pleasant 60-year-old male with a history of angina, chest pain, sciatica, abdominal pain, small bowel obstruction and recent cyst right axilla presented to the emergency department with complaint of pain, bloody discharge from the cyst that was removed today at the dermatology by Dr. Beka Metcalf at [facility]. Patient underwent since removal today. He postoperative did well. However he developed bloody drainage with excision in pain. He came to the ER for evaluation. He denies any fever, chills, nausea or vomiting. Patient has been on chronic opioid therapy in the past. Currently he has not taken any analgesics other than Tylenol or ibuprofen. Review of Systems Review of Systems All other systems were reviewed and found to be within normal limits, except as documented in this note. Allergies Allergies Allergies Coded Allergies Type Severity Reaction Last Updated Verified No Known Drug Allergies 06/01/20 No Physical Exam Physical Exam Constitutional: Well developed, well nourished, no acute distress, non-toxic appearance. [] HENT: Normocephalic, atraumatic, bilateral external ears normal, oropharynx moist, no oral exudates, nose normal. [] Eyes: PERRLA, EOMI, conjunctiva normal, no discharge. [] Neck: Normal range of motion, no tenderness, supple, no stridor. [] Cardiovascular:Heart rate regular rhythm, no murmur [] Lungs & Thorax: Bilateral breath sounds clear to auscultation [] Abdomen: Bowel sounds normal, soft, no tenderness, no masses, no pulsatile masses. [] Skin: Patient had minimal drainage serosanguineous from the stitch right axilla. No active site of bleeding. Tender to palpate. Back: No tenderness, no CVA tenderness. [] Extremities: No tenderness, no cyanosis, no clubbing, ROM intact, no edema. [] Neurologic: Alert and oriented X 3, normal motor function, normal sensory function, no focal deficits noted. [] Psychologic: Affect normal, judgement normal, mood normal. [] EKG EKG [] Radiology/Procedures Radiology/Procedures [] Heart Score C/O Chest Pain: N/A Risk Factors: Risk Factors: DM, Current or recent (<one month) smoker, HTN, HLP, family history of CAD, obesity. Risk Scores: Risk Factors: DM, Current or recent (<one month) smoker, HTN, HLP, family history of CAD, obesity. Course & Med Decision Making Course & Med Decision Making Patient was examined and evaluated immediately upon arrival to the ER. He underwent axillary cyst removal today by the [facility] dermatology. Patient does not have any obvious postoperative complication. He does have mild serosanguineous drainage from the incision site. Incision and suture looks intact. This was cleaned with Hibiclens. Patient has severe tenderness upon palpation. Patient has chronic pain and chronic opiate therapy. It was felt that patient will require analgesics to control this pain. He did not require any imaging studies or blood work. 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 Current Medications Medications (Trade) Dose Ordered Sig/Taras Route PRN Reason Start Time Stop Time Status Last Admin Dose Admin Morphine Sulfate (Morphine 2mg Syringe) 2 mg 1X ONCE IM 12/30/20 19:15 12/30/20 19:18 DC 12/30/20 19:19 Dragon Disclaimer Wolfgangon Disclaimer This electronic medical record was generated, in whole or in part, using a voice recognition dictation system. Departure Departure: Impression: Primary Impression: Postoperative bleeding from incision Additional Impression: Pain in right axilla Disposition: 01 HOME / SELF CARE / HOMELESS Referrals: JENNYFER WOOTEN (PCP) Additional Instructions: Please follow-up with your head school custodian in 2 to 3 days. Keep the right axillar y area the site of incision clean and dry. Take the pain medications as was prescribed. Do not operate heavy machinery or drive while on narcotic pain medication. Scripts Hydrocodone Bit/Acetaminophen (HYDROCODONE-APAP 5-325 ) 1 Each Tablet 1 TAB PO PRN Q6HRS PRN for PAIN for 5 Days, #20 TAB 0 Refills Prov: MARTIN KILPATRICK MD 12/30/20 Naproxen (NAPROXEN) 500 Mg Tablet 1 TAB PO BID for pain for 20 Days, #40 TAB 0 Refills Prov: MARTIN KILPATRICK MD 12/30/20 Problem Qualifiers MARTIN KILPATRICK MD Dec 30, 2020 18:45
[2020-12-30] MEDS ORDERED: MORPHINE SULFATE 2 MG/ML DISP.SYRIN. IM ONE (19:15)
[2020-12-30] MEDS ORDERED: HYDR-2155 PO (20:33)
[2020-12-30] MEDS ORDERED: NAPR-514 PO (20:33)
[2020-12-30 21:02] VITALS: BP 178/82
== END 2020-12-30 21:02 | disposition home or self-care (01) ==
LOC: ER 18:23
DX: M79.621 Pain in right upper arm (principal); L76.22 Postprocedural hemorrhage of skin and subcutaneous tissue following other procedure; E78.5 Hyperlipidemia, unspecified; I10 Essential (primary) hypertension; F17.200 Nicotine dependence, unspecified, uncomplicated
CPT/HCPCS: 96372; 99283; J2270

== ENCOUNTER 2020-12-31 20:07 | Emergency (ER) | payer OTHER ==
[~2020-12-31] VITALS: Ht 188 cm; Wt 91.0 kg
[~2020-12-31 20:07] MED LIST changes: +HYDR-2155 PO; +NAPR-514 PO
--- NOTE | 2020-12-31 20:12 | PHYS DOC ---
Past History Past Medical History: High Cholesterol, Hypertension, Sciatica Additional Past Medical Histor: CHRONIC BACK PAIN, NEUROPATHY Past Surgical History: Appendectomy, Other Additional Past Surgical Histo: right shoulder, lumbar spine Smoking: Cigar Alcohol Use: Occasionally Drug Use: None General Adult HPI: HPI: ".. I started a new med this morning.. for elevated BP.. Dr. Abbott put me on Metoprolol.. I took it about 9 am.. but this afternoon I was dizzy.. some Rt. facial numbness the entire right sided.. I was here last night .. I had a high blood pressure last night. Lt.facial numbness... they just had me follow up with Dr. Miner and he started me on the Metorporol..." Patient is a 60 year old male who presents with above hx and complaints hypertension, right side facial numbness, dizziness, which has been present since yesterday. Patient states dizziness was worse today after starting metoprolol at 9:00 this morning. Patient was seen on 617 with similar complaints at that time as left side tenderness. Patient initially felt to be t emporal arteritis. However tonight is right temporal tenderness. Past medical history of hypertension, hyperlipidemia, sciatica from lumbar sacral injury. Status post surgery. Patient has had history of peripheral neuropathy in the past. Hypertension. Does smoke cigarettes and cigars. Patient denies any illicit drug use or alcohol use. No recent travel. No specific ill contacts. Has completed both Covid vaccinations. Only new medication is metoprolol. He has recently had lumpectomy right axillary area at outpatient surgery center this is currently being evaluated. Review of Systems: Review of Systems: Constitutional: Denies fever or chills Eyes: Denies change in visual acuity HENT: Denies nasal congestion or sore throat Respiratory: Denies cough or shortness of breath Cardiovascular: Denies chest pain or edema GI: Denies abdominal pain, nausea, vomiting, bloody stools or diarrhea : Denies dysuria Musculoskeletal: Denies back pain or joint pain Integument: Denies rash Neurologic: Denies headache, focal weakness or sensory changes . Complaints of dizzy. Rt.facial numbness tonight, Lt. facial numbness yesterday. Endocrine: Denies polyuria or polydipsia Lymphatic: Denies swollen glands Psychiatric: Denies depression or anxiety Family History: Family History: Noncontributory to presentation Current Medications: Current Meds: See nursing for home meds Allergies: Allergies: Allergies Coded Allergies Type Severity Reaction Last Updated Verified No Known Drug Allergies 06/01/20 No Physical Exam: PE: Constitutional: Moderate distress, non-toxic appearance. [] HENT: Normocephalic, atraumatic, bilateral external ears normal, oropharynx moist, no oral exudates, nose normal. Temporal arteries are not tender to palpation. Eyes: PERRLA, EOMI, conjunctiva normal, no discharge. [] No gross field defects noted Neck: Normal range of motion, no tenderness, supple, no stridor. [No bruits appreciated in neck Cardiovascular:Heart rate regular rhythm, no murmur [] Lungs & Thorax: Bilateral breath sounds equal apex with scattered wheezes on auscultation [] Abdomen: Bowel sounds normal, soft, no tenderness, no masses, no pulsatile masses. [] Skin: Warm, dry, no erythema, no rash. [] Back: No tenderness, no CVA tenderness. Old surgical scar. Extremities: No tenderness, no cyanosis, no clubbing, ROM intact, no edema. Right axillary adenopathy suture line stable. No cording appreciated. Neurologic: Alert and oriented X 3, moves all extremities on request, has distal sensory in upper arms, no focal deficits noted. [DTRs +2 patella and brachial. Campaign Management Specialist equal. Right-hand dominant. Patient is amatory without problems. Psychologic: Affect anxious, judgement normal, mood normal. [] EKG: EKG: [] My interpretation EKG shows a sinus rhythm at 68 bpm. Does have bimodal P waves in the left leads. Abnormal EKG nonspecific changes. No findings acute STEMI of contralateral changes. Radiology/Procedures: Radiology/Procedures: [][place] [address] IMAGING REPORT Signed PATIENT: HALLE TADEO RACCOUNT: [id number] : 1960 LOCATION: ER AGE: 60 SEX: M EXAM STATUS: REG ER ORD. PHYSICIAN: SLICK KELSEY MD REASON: htn, dizziness PROCEDURE: PORTABLE CHEST 1V AP chest. HISTORY: Hypertension, dizziness AP view was taken of the chest. Lungs are clear. Heart is normal in size. There is no pleural effusion. IMPRESSION: 1. No acute chest disease. Electronically signed by: Humphrey Mccullough MD (12/31/2020 9:39 PM) [facility] DICTATED AND SIGNED BY: HUMPHREY MCCULLOUGH MD DATE: 12/31/202138 CC: SLICK KELSEY MD; LORI MINER MD ~[facility]0 0 [facility]0 [address] [place], [place] [id number] IMAGING REPORT Signed PATIENT: HALLE TADEO RACCOUNT: [id number] : 1960 LOCATION: ER AGE: 60 SEX: M EXAM STATUS: REG ER ORD. PHYSICIAN: SLICK KELSEY MD REASON: dizzy, headache PROCEDURE: CT HEAD WO CONTRAST CT HEAD/BRAIN WO Date: 12/31/2020 9:23 PM Clinical Indication: dizzy, headache Comparison: 01/29/2017. Technique: 5 mm axial tomographic images were obtained of the head without contrast. These were viewed on brain and bone windows. One or more of the following dose reduction techniques were utilized: Automated exposure control (AEC), Adjustment of mA and/or kV according to patient size, Use of iterative reconstruction technique such as ASiR, CT scan done according to ALARA and image gently/image wisely Findings: Mild nonspecific periventricular hypoattenuation is most consistent with chronic small vessel ischemic disease. No intra- or extra-axial mass or fluid collection. No acute hemorrhage. The perdomo-white matter junction is normal. The subarachnoid cisterns are patent. Large area of right parietotemporal encephalomalacia. Ex vacuo dilatation of the atrium of the right lateral ventricle. Chronic left caudate head/anterior limb internal capsule lacunar infarct. Small area of right duffy radiata en cephalomalacia. Ex vacuo dilatation of the atrium of the right lateral ventricle. The ventricles are otherwise normal in size, shape, and morphology Mild paranasal sinus mucosal thickening. The visualized portions of the orbits and globes are normal. The mastoid air cells are clear. The customer service professional topogram shows no lytic lesion or fracture. Impression: 1. No acute hemorrhage or large territory perdomo-white loss. 2. Large area of right parietotemporal encephalomalacia, small area of right duffy radiata encephalomalacia, and chronic left basal ganglia lacunar infarct. 3. Mild nonspecific periventricular hypoattenuation is most consistent with chronic small vessel ischemic disease. Electronically signed by: Dharmesh Celestin MD (12/31/2020 9:45 PM) [facility] DICTATED AND SIGNED BY: DHARMESH CELESTIN MD DATE: 12/31/202137 CC: SLICK KELSEY MD; LORI MINER MD ~[facility] 0 Heart Score: C/O Chest Pain: N/A HEART Score for Chest Pain: HEART Score for Chest Pain Response (Comments) Value History Moderately Suspicious 1 ECG Nonspecific Repolarizatio 1 Age >45 - < 65 1 Risk Factors 1 or 2 Risk Factors 1 Troponin < Normal Limit 0 Total 4 Risk Factors: Risk Factors: DM, Current or recent (<one month) smoker, HTN, HLP, family history of CAD, obesity. Risk Scores: Score 0 - 3: 2.5% MACE over next 6 weeks - Discharge Home Score 4 - 6: 20.3% MACE over next 6 weeks - Admit for Clinical Observation Score 7 - 10: 72.7% MACE over next 6 weeks - Early Invasive Strategies Course & Med Decision Making: Course & Med Decision Making Pertinent Labs and Imaging studies reviewed. (See chart for details) Pt reports resolution of symptom after BP down. Discussed presentation, testing and treatment plan with . Will accept pt. at [facility]- Possible MRI, Neuro consult. Review ED record from yesterday. Impression: 1. Accelerated HTN 2. Tobacco Use 3. Dizzy 4. CT findings of old Rt. parientotemporal encephalomalacia 5. TIA [] Dragon Disclaimer: Dragon Disclaimer: This electronic medical record was generated, in whole or in part, using a voice recognition dictation system. Departure Departure: Referrals: LORI MINER MD (PCP) Darryl Disclaimer This chart was dictated in whole or in part using Voice Recognition software in a busy, high-work load, and often noisy Emergency Department environment. It may contain unintended and wholly unrecognized errors or omissions. Dragon Disclaimer This chart was dictated in whole or in part using Voice Recognition software in a busy, high-work load, and often noisy Emergency Department environment. It may contain unintended and wholly unrecognized errors or omissions. Dragon Disclaimer This chart was dictated in whole or in part using Voice Recognition software in a busy, high-work load, and often noisy Emergency Department environment. It may contain unintended and wholly unrecognized errors or omissions. SLICK KELSEY MD Dec 31, 2020 20:12
[2020-12-31] MEDS ORDERED: IV RINGERS SOLUTION,LACTATED 1,000 ML IV SCH (21:15)
--- NOTE | 2020-12-31 21:42 | RAD ---
AP chest. HISTORY: Hypertension, dizziness AP view was taken of the chest. Lungs are clear. Heart is normal in size. There is no pleural effusio n. IMPRESSION: 1. No acute chest disease. Electronically signed by: Humphrey Mccullough MD (12/31/2020 9:39 PM) [facility]
--- NOTE | 2020-12-31 21:47 | RAD ---
CT HEAD/BRAIN WO Date: 12/31/2020 9:23 PM Clinical Indication: dizzy, headache Comparison: 01/29/2017. Technique: 5 mm axial tomographic images were obtained of the head without contrast. These were view ed on brain and bone windows. One or more of the following dose reduction techniques were utilized: A utomated exposure control (AEC), Adjustment of mA and/or kV according to patient size, Use of iterati ve reconstruction technique such as ASiR, CT scan done according to ALARA and image gently/image pastor ly Findings: Mild nonspecific periventricular hypoattenuation is most consistent with chronic small vessel ischemi c disease. No intra- or extra-axial mass or fluid collection. No acute hemorrhage. The perdomo-white mat ter junction is normal. The subarachnoid cisterns are patent. Large area of right parietotemporal encephalomalacia. Ex vacuo dilatation of the atrium of the right lateral ventricle. Chronic left caudate head/anterior limb internal capsule lacunar infarct. Small ar ea of right duffy radiata encephalomalacia. Ex vacuo dilatation of the atrium of the right lateral ventricle. The ventricles are otherwise normal in size, shape, and morphology Mild paranasal sinus mucosal thickening. The visualized portions of the orbits and globes are normal . The mastoid air cells are clear. The suction plate carrier cleaner topogram shows no lytic lesion or fracture. Impression: 1. No acute hemorrhage or large territory perdomo-white loss. 2. Large area of right parietotemporal encephalomalacia, small area of right duffy radiata encephalo malacia, and chronic left basal ganglia lacunar infarct. 3. Mild nonspecific periventricular hypoattenuation is most consistent with chronic small vessel isch emic disease. Electronically signed by: Alvaro Celestin MD (12/31/2020 9:45 PM) [facility]
[2020-12-31 21:50] LABS: BASO # 0.1 x10^3/uL (0.0-0.2); BASO % 1 % (0-3); EOS # 0.1 x10^3/uL (0.0-0.7); EOS % 1 % (0-3); HEMATOCRIT 46.8 % (39.0-53.0); HEMOGLOBIN 15.7 g/dL (13.0-17.5); LYMPH # 2.9 x10^3/uL (1.0-4.8); LYMPH % 29 % (24-48); MEAN CORPUSCULAR HEMOGLOBIN 30 pg (25-35); MEAN CORPUSCULAR HGB CONC 34 g/dL (31-37); MEAN CORPUSCULAR VOLUME 89 fL (79-100); MONO # 0.9 x10^3/uL (0.0-1.1); MONO % 9 % (0-9); NEUT # 6.1 x10^3uL (1.8-7.7); NEUT % 61 % (31-73); PLATELET COUNT 299 x10^3/uL (140-400); RED BLOOD COUNT 5.27 x10^6/uL (4.30-5.70); RED CELL DISTRIBUTION WIDTH 14.8 % (11.5-14.5); WHITE BLOOD COUNT 10.1 x10^3/uL (4.0-11.0)
[2020-12-31 22:07] LABS: ALBUMIN 3.8 g/dL (3.4-5.0); CALCIUM 9.3 mg/dL (8.5-10.1); CREATININE 1.1 mg/dL (0.7-1.3); DIRECT BILIRUBIN 0.1 mg/dL (0.0-0.2); GFR 82.6; MAGNESIUM 2.1 mg/dL (1.8-2.4); POTASSIUM 4.5 mmol/L (3.5-5.1); TOTAL BILIRUBIN 0.5 mg/dL (0.2-1.0); TOTAL PROTEIN 7.4 g/dL (6.4-8.2)
--- NOTE | 2020-12-31 22:26 | EKG ---
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
[2020-12-31] MEDS ORDERED: oxyCODONE/APAP 5/325 1 TAB TABLET PO ONE (22:45)
[2020-12-31] MEDS ORDERED: cloNIDine HCL 0.1 MG TABLET PO ONE (23:00)
[2020-12-31] MEDS ORDERED: ENOXAPARIN ** NOTE DOSE ** SYRINGE SQ ONE ×3 (23:13→23:30)
[2020-12-31 23:24] LABS: SEDIMENTATION RATE 3 (0-15)
[2020-12-31 23:35] VITALS: BP 182/94
[2020-12-31 23:59] LABS: BACTERIA,URINE FEW /HPF (0-FEW); BILIRUBIN,URINE NEG (NEG); CLARITY,URINE CLEAR; COLOR,URINE YELLOW; GLUCOSE,URINE NEG (NEG); NITRITE,URINE NEG (NEG); SQUAMOUS EPITHELIAL CELL,UR OCC /LPF; UROBILINOGEN,URINE 0.2 mg/dL (0.2 mg/dL); WBC,URINE 0 /HPF (0-4)
[2021-01-01 00:14] LABS: BARBITURATES NEG (NEG); BENZODIAZEPINES NEG (NEG); CANNABINOIDS POS (NEG); COCAINE NEG (NEG); METHADONE NEG (NEG); OPIATES POS (NEG); PHENCYCLIDINE NEG (NEG)
[2021-01-01 00:15] LABS: AMPHETAMINE/METHAMPHETAMINE NEG (NEG)
== END 2020-12-31 23:52 | disposition short-term general hospital (02) ==
LOC: ER 20:07
DX: I10 Essential (primary) hypertension (principal); R42 Dizziness and giddiness; G45.9 Transient cerebral ischemic attack, unspecified; F17.210 Nicotine dependence, cigarettes, uncomplicated; E78.5 Hyperlipidemia, unspecified
CPT/HCPCS: 36415; 70450; 71045; 80048; 80076; 80307; 81001; 82550; 83690; 83735; 83880; 84443; 84484; 85025; 85610; 85651; 86140; 93005; 96360; 96361; 96372; 99285; J1650; J7120

== ENCOUNTER 2021-02-19 08:16 | Emergency (ER) | payer OTHER ==
[~2021-02-19] VITALS: Ht 188 cm; Wt 92.7 kg
--- NOTE | 2021-02-19 08:26 | PHYS DOC ---
General Adult EDM: Chief Complaint: Stroke HPI: HPI: 60-year-old male presents as a code stroke. The patient was found unresponsive by family member at his house this morning. Last known well was last night. No more specific time is available. Entire report comes from EMS. The patient is not responding verbally, consistently. He was not speaking at all when EMS arrived. He has not been able to perform drift or smile tests. He does open his eyes to verbal stimuli. He also opens them spontaneously. The patient's family reported a history of TIAs and at least 1 previous stroke. No other historical information was available at time of presentation. Review of Systems: Review of Systems: Unable to perform due to mental status Physical Exam: PE: Constitutional: Well developed, well nourished, no acute distress.[] HENT: Normocephalic, atraumatic, bilateral external ears normal, oropharynx moist, no oral exudates, nose normal. [] Eyes: PERRLA, EOMI, conjunctiva normal, no discharge. [] Neck: No tenderness, supple, no stridor. [] Cardiovascular: Heart rate regular rhythm, no murmur [] Lungs & Thorax: Bilateral breath sounds clear to auscultation [] Abdomen: soft, no masses, no pulsatile masses. [] Skin: Warm, dry, no erythema, no rash. [] Back: No obvious trauma. [] Extremities: No cyanosis, no clubbing, no edema. [] Neurologic: See NIHSS [] Psychologic: Unable to evaluate [] EKG: EKG: [] Radiology/Procedures: Radiology/Procedures: [] Impressions: CT STROKE HEAD W/O History: Reason: stroke / Spl. Instructions: / History: Comparison: None. Technique: Noncontrast CT imaging was performed of the head. Exposure: One or more of the following individualized dose reduction techniques were utilized for this examination: 1. Automated exposure control 2. Adjustment of the mA and/or kV according to patient size 3. Use of iterative reconstruction technique. Findings: No intracranial hemorrhage. No mass effect. No hydrocephalus. Multifocal chronic infarcts bilaterally. Large right parieto-occipital and posterior temporal infarct. Chronic right duffy radiata/lentiform nucleus infarct. Chronic left basal ganglia infarcts. Chronic right caudate lacunar infarct. Chronic right thalamic lacunar infarct. Additional foci of decreased attenuation within the hemispheric white matter, most often due to chronic microvascular ischemia. Imaged orbits are unremarkable. Ethmoid sinus because of thickening. Secretions within the right sphenoid sinus. Mastoid air cells are clear. No acute calvarial fracture. Impression: 1. No acute intracranial hemorrhage. 2. Multifocal chronic infarcts bilaterally, most prominent on the right. FOR INTERNAL CODING PURPOSES Critical result: Findings discussed with Dr. Mattson at 02/19/2021 9:20 AM. RESULT CODE: (C) Electronically signed by: Ayo Rojas DO (02/19/2021 9:28 AM) [facility] DICTATED AND SIGNED BY: AYO ROJAS DO DATE: 02/19/21922 CC: RAQUEL MATTSON DO; LORI WOOTEN MD ~MTH0 0 CTA HEAD AND NECK W/WO CONTRAST History:Reason: stroke / Spl. Instructions: / History: Technique: After bolus of intravenous contrast, volumetric CT data acquisition was acquired of the head and neck. Multiplanar reconstruction images to include MIP and 3-D reconstruction images are submitted. Exposure: One or more of the following individualized dose reduction techniques were utilized for this examination: 1. Automated exposure control 2. Adjustment of the mA and/or kV according to patient size 3. Use of iterative reconstruction technique. Comparison: None Any determination of stenosis is based on NASCET criteria. Head CTA: ICA: Atheromatous plaque within the carotid siphons. Moderate focal narrowing of the right supraclinoid internal carotid artery. Mild multifocal narrowing of the left cavernous and paraclinoid internal carotid artery. MCA: Occlusion of the right proximal M1 segment, similar compared to prior. There is mild filling of right MCA branches via collaterals. Severe focal narrowing of the left M1 segment, unchanged. Mild to moderate multifocal narrowing of the left M2 branches. SANJU: Mild multifocal irregularity with mild narrowing related to atheromatous disease. No occlusion. FIELD SALES ASSOCIATE: Moderate multifocal narrowing of the bilateral posterior cerebral arteries due to atheromatous plaque, unchanged. Basilar artery: Severe narrowing of the distal basilar artery, unchanged. Distal vertebral arteries: No stenosis, occlusion or aneurysm. Multifocal chronic infarcts within the right cerebral hemisphere. CT angiogram neck: Aortic arch: Mild atheromatous plaque within the aortic arch. Common carotid arteries: No stenosis, occlusion or dissection. Internal carotid arteries: No stenosis, occlusion or dissection. Mild atheromatous plaque within the carotid bifurcations. External carotid arteries: Patent Vertebral arteries: Narrowing of the right vertebral artery origin due to calcified plaque. No occlusion. Imaged lung apices are unremarkable. Enlarged thyroid. Left thyroid nodule with associated calcification measures up to 2.2 x 1.4 cm. Bones: Scattered ethmoid sinus mucosal thickening secretions within the right sphenoid sinus. Minimal maxillary sinus mucosal thickening. Mastoid air cells are clear. Impression: 1. 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 2. Severe narrowing of the left M1 segment, unchanged. 3. Additional multifocal intracranial narrowings, similar compared to prior. 4. Enlarged thyroid with left thyroid nodule. Recommend ultrasound to further evaluate. FOR INTERNAL CODING PURPOSES Critical result: Findings discussed with Dr. Mattson at 02/19/2021 9:20 AM. RESULT CODE: (C) Electronically signed by: Ayo Rojas DO (02/19/2021 9:23 AM) [facility] DICTATED AND SIGNED BY: AYO ROJAS DO DATE: 02/19/21907 CC: RAQUEL MATTSON DO; LORI WOOTEN MD ~MTH0 0 Heart Score: C/O Chest Pain: N/A Risk Factors: Risk Factors: DM, Current or recent (<one month) smoker, HTN, HLP, family history of CAD, obesity. Risk Scores: Score 0 - 3: 2.5% MACE over next 6 weeks - Discharge Home Score 4 - 6: 20.3% MACE over next 6 weeks - Admit for Clinical Observation Score 7 - 10: 72.7% MACE over next 6 weeks - Early Invasive Strategies Course & Med Decision Making: Course & Med Decision Making Pertinent Labs and Imaging studies reviewed. (See chart for details) While the patient was lying in bed, he appeared to have seizure-like activity with tremors of the upper and lower extremities. He was given 2 mg of Ativan. Just after he was given this medication I asked him to open his eyes and he was able to open his eyes. He told me the light is hurting his eyes. He was still having some central tremulousness so seizure seems unlikely. The patient has an alcohol level of 74. While attempting to do his NIH, the patient was not cooperative. He was voluntarily not following directions. He was moving all 4 extremities. He has existing weakness on the left side from his previous stroke . He complained about his vision but then when I had him close 1 eye at a time he stated that things looked normal. Head CT was negative for acute findings. CTA of the head and neck again demonstrate occlusion affecting the right side. See official read for more details. No new occlusions are visualized. The patient's drug screen is positive for alcohol and barbiturates. The long he has been here the more obvious its become that his situation is complicated by the substances that he is ingested. I do not believe admission will benefit the patient. His family is here and has gotten him up and out of bed and ready to go. He is stable for discharge at this time. [place] Disclaimer: [employer] Disclaimer: This electronic medical record was generated, in whole or in part, using a voice recognition dictation system. NIH Stroke Scale: NIH Stroke Scale Response (Comments) Value Level of Consciousness: 1 Not alert/arousable 1 LOC Questions: 0 Answers both correctly 0 LOC Commands: 0 Performs both tasks 0 Best Gaze: 0 Normal 0 Visual: 0 No visual loss 0 Facial Palsy: 0 Normal, symmetrical 0 Motor - Left Arm 1 Drifts, but can hold 1 Motor - Right Arm 0 No drift 0 Motor - Left Leg 1 Drift but can hold 1 Motor: Right Leg 0 No drift 0 Limb Ataxia: 0 Absent 0 Sensory: 0 No loss 0 Best Language: 0 Normal 0 Dysathria: 0 Normal 0 Extinction and Inattention: 0 Normal 0 Total 3 Departure Departure: Impression: Primary Impression: Altered mental status Qualified Codes: R41.0 - Disorientation, unspecified Additional Impression: Intoxication Referrals: PCP,UNKNOWN (PCP) Patient Instructions: Alcohol Intoxication, [id number], Altered Mental Status RAQUEL MATTSON DO Feb 19, 2021 08:26
[2021-02-19 08:30] VITALS: BP 164/74
[2021-02-19 08:42] LABS: BASO % 0 % (0-3); EOS # 0.2 x10^3/uL (0.0-0.7); EOS % 2 % (0-3); HEMATOCRIT 42.1 % (39.0-53.0); HEMOGLOBIN 14.2 g/dL (13.0-17.5); LYMPH # 2.8 x10^3/uL (1.0-4.8); LYMPH % 32 % (24-48); MEAN CORPUSCULAR HEMOGLOBIN 30 pg (25-35); MEAN CORPUSCULAR HGB CONC 34 g/dL (31-37); MEAN CORPUSCULAR VOLUME 88 fL (79-100); MONO # 0.7 x10^3/uL (0.0-1.1); MONO % 8 % (0-9); NEUT % 58 % (31-73); PLATELET COUNT 315 x10^3/uL (140-400); RED BLOOD COUNT 4.79 x10^6/uL (4.30-5.70); RED CELL DISTRIBUTION WIDTH 14.2 % (11.5-14.5); WHITE BLOOD COUNT 8.7 x10^3/uL (4.0-11.0)
[2021-02-19 08:50] LABS: CALCIUM 8.9 mg/dL (8.5-10.1); CREATININE 0.9 mg/dL (0.7-1.3); GFR 104.2
--- NOTE | 2021-02-19 09:26 | RAD ---
CTA HEAD AND NECK W/WO CONTRAST History:Reason: stroke / Spl. Instructions: / History: Technique: After bolus of intravenous contrast, volumetric CT data acquisition was acquired of the he ad and neck. Multiplanar reconstruction images to include MIP and 3-D reconstruction images are submi tted. Exposure: One or more of the following individualized dose reduction techniques were utilized for thi s examination: 1. Automated exposure control 2. Adjustment of the mA and/or kV according to patient size 3. Use of iterative reconstruction technique. Comparison: None Any determination of stenosis is based on NASCET criteria. Head CTA: ICA: Atheromatous plaque within the carotid siphons. Moderate focal narrowing of the right supraclino id internal carotid artery. Mild multifocal narrowing of the left cavernous and paraclinoid internal carotid artery. MCA: Occlusion of the right proximal M1 segment, similar compared to prior. There is mild filling of right MCA branches via collaterals. Severe focal narrowing of the left M1 segment, unchanged. Mild to moderate multifocal narrowing of the left M2 branches. SANJU: Mild multifocal irregularity with mild narrowing related to atheromatous disease. No occlusion. 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 Basilar artery: Severe narrowing of the distal basilar artery, unchanged. Distal vertebral arteries: No stenosis, occlusion or aneurysm. Multifocal chronic infarcts within the right cerebral hemisphere. CT angiogram neck: Aortic arch: Mild atheromatous plaque within the aortic arch. Common carotid arteries: No stenosis, occlusion or dissection. Internal carotid arteries: No stenosis, occlusion or dissection. Mild atheromatous plaque within the carotid bifurcations. External carotid arteries: Patent Vertebral arteries: Narrowing of the right vertebral artery origin due to calcified plaque. No occlus ion. Imaged lung apices are unremarkable. Enlarged thyroid. Left thyroid nodule with associated calcifica tion measures up to 2.2 x 1.4 cm. Bones: Scattered ethmoid sinus mucosal thickening secretions within the right sphenoid sinus. Minimal maxillary sinus mucosal thickening. Mastoid air cells are clear. Impression: 1. 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 2. Severe narrowing of the left M1 segment, unchanged. 3. Additional multifocal intracranial narrowings, similar compared to prior. 4. Enlarged thyroid with left thyroid nodule. Recommend ultrasound to further evaluate. FOR INTERNAL CODING PURPOSES Critical result: Findings discussed with Dr. Canales at 02/19/2021 9:20 AM. RESULT CODE: (C) Electronically signed by: Ayo Rojas DO (02/19/2021 9:23 AM) [facility]
--- NOTE | 2021-02-19 09:31 | RAD ---
CT STROKE HEAD W/O History: Reason: stroke / Spl. Instructions: / History: Comparison: None. Technique: Noncontrast CT imaging was performed of the head. Exposure: One or more of the following individualized dose reduction techniques were utilized for thi s examination: 1. Automated exposure control 2. Adjustment of the mA and/or kV according to patient size 3. Use of iterative reconstruction technique. Findings: No intracranial hemorrhage. No mass effect. No hydrocephalus. Multifocal chronic infarcts bilaterally. Large right parieto-occipital and posterior temporal infarct . Chronic right duffy radiata/lentiform nucleus infarct. Chronic left basal ganglia infarcts. Chroni c right caudate lacunar infarct. Chronic right thalamic lacunar infarct. Additional foci of decreased attenuation within the hemispheric white matter, most often due to chron ic microvascular ischemia. Imaged orbits are unremarkable. Ethmoid sinus because of thickening. Secretions within the right sphe noid sinus. Mastoid air cells are clear. No acute calvarial fracture. Impression: 1. No acute intracranial hemorrhage. 2. Multifocal chronic infarcts bilaterally, most prominent on the right. FOR INTERNAL CODING PURPOSES Critical result: Findings discussed with Dr. Canales at 02/19/2021 9:20 AM. RESULT CODE: (C) Electronically signed by: Ayo Rojas DO (02/19/2021 9:28 AM) [facility]
[2021-02-19 10:16] LABS: BARBITURATES POS (NEG); BENZODIAZEPINES NEG (NEG); CANNABINOIDS NEG (NEG); COCAINE NEG (NEG); METHADONE NEG (NEG); OPIATES NEG (NEG); PHENCYCLIDINE NEG (NEG)
[2021-02-19 10:17] LABS: AMPHETAMINE/METHAMPHETAMINE NEG (NEG)
[2021-02-19] MEDS ORDERED: IOHEXOL 350 MG/ML 100 ML VIAL. ONE (10:52)
[2021-02-19] MEDS ORDERED: IOHEXOL 350 MG/ML 100 ML VIAL. IV ONE (11:15)
[2021-02-19] MEDS ORDERED: CONTRAST GIVEN. MC PRN (11:30)
== END 2021-02-19 13:40 | disposition home or self-care (01) ==
LOC: EDBD 08:16 → MERGE 08:16 → ER 08:16
DX: R41.82 Altered mental status, unspecified (principal); F10.129 Alcohol abuse with intoxication, unspecified; Z20.822 Contact with and (suspected) exposure to COVID-19; Y90.3 Blood alcohol level of 60-79 mg/100 ml
CPT/HCPCS: 36415; 70450; 70496; 70498; 80048; 80307; 82947; 84484; 85025; 85610; 85730; 99285; C9803; G0480; U0003

== ENCOUNTER 2021-02-25 13:41 | Emergency (ER) | payer OTHER ==
[~2021-02-25] VITALS: Ht 188 cm; Wt 91.0 kg
--- NOTE | 2021-02-25 13:56 | EKG ---
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
--- NOTE | 2021-02-25 14:07 | PHYS DOC ---
Past History Past Medical History: High Cholesterol, Hypertension, Sciatica Additional Past Medical Histor: CHRONIC BACK PAIN, NEUROPATHY Past Surgical History: Appendectomy, Other Additional Past Surgical Histo: right shoulder, lumbar spine Smoking: Cigar Alcohol Use: Occasionally Drug Use: None General Adult EDM: Chief Complaint: ALTERED MENTAL STATUS HPI: HPI: 60-year-old male presents via EMS for seizure or syncopal event. The report was that the patient was sitting in the back of his truck and fell straight back. He then had some rhythmic movements. When EMS arrived the patient was unresponsive but his vitals were stable. When I asked the patient what happened today he said he does not remember. He says that the front of his head hurts. He does not answer most questions. He will not follow directions. The patient was recently seen in this emergency room. Review of Systems: Review of Systems: Unable to assess the rest of her review of systems because the patient would not answer questions. Neurologic: headache. Allergies: Allergies: Allergies Coded Allergies Type Severity Reaction Last Updated Verified No Known Drug Allergies 06/01/20 No Physical Exam: PE: Constitutional: Well developed, well nourished, no acute distress, smells of intoxication. [] HENT: Normocephalic, atraumatic, bilateral external ears normal, oropharynx moist, no oral exudates, nose normal. [] Eyes: PERRLA, EOMI, conjunctiva normal, no discharge. [] Neck: No tenderness, supple, no stridor. [] Cardiovascular: Heart rate 76,regular rhythm, no murmur [] Lungs & Thorax: Bilateral breath sounds clear to auscultation [] Abdomen: Bowel sounds normal, soft, no tenderness, no masses, no pulsatile masses. [] Skin: Warm, dry, no erythema, no rash. [] Back: No tenderness, no CVA tenderness. [] Extremities: No tenderness, no cyanosis, no clubbing, ROM intact, no edema. [] Neurologic: Alert and oriented X 3, unable to further assess due to patient not willing to cooperate [] Psychologic: Affect flat, judgement uncooperative [] Current Patient Data: Vital Signs: Vital Signs Date Time Temp Pulse Resp B/P (MAP) Pulse Ox O2 Delivery O2 Flow Rate FiO2 02/25/21 13:41 98.2 67 14 154/85 96 Room Air EKG: EKG: Sinus rhythm, rate 76, normal axis, no ST elevation or depression. [] Radiology/Procedures: Radiology/Procedures: [] Impressions: CT HEAD WITHOUT CONTRAST 02/25/2021 3:35 PM Indication: Reason: AMS / Spl. Instructions: / History: Comparison: CT of the head without contrast December 31, 2020 Procedure: Multidetector CT imaging of the head was performed without the administration of contrast. Findings: No evidence of acute intracranial hemorrhage is identified. Large area of encephalomalacia within the right frontal, parietotemporal and occipital cortex noted, similar to comparison study. Allowing for these changes the ventricles and basilar cisterns have an expected appearance. Prior lacunar infarct in the left basal ganglia noted. No acute abnormal extra-axial fluid collection is identified. No occlusive acute midline shift or mass effect is seen. No acute osseous changes are identified. IMPRESSION: 1. Grossly stable exam without evidence of acute intracranial abnormality. 2. Large area of encephalomalacia within the right frontal, parietotemporal and occipital cortex noted, similar to comparison study. CT DOSING PQRS STATEMENT: One or more of the following individualized dose reduction techniques were uti lized for this examination: 1. Automated exposure control 2. Adjustment of the mA and/or kV according to patient size 3. Use of iterative reconstruction technique Electronically signed by: Anand Bran MD (02/25/2021 3:50 PM) [id number] DICTATED AND SIGNED BY: ANAND BRAN MD DATE: 02/25/21 1545 CC: RAQUEL MATTSON DO; LORI WOOTEN MD ~MTH0 0 Heart Score: C/O Chest Pain: N/A Risk Factors: Risk Factors: DM, Current or recent (<one month) smoker, HTN, HLP, family history of CAD, obesity. Risk Scores: Score 0 - 3: 2.5% MACE over next 6 weeks - Discharge Home Score 4 - 6: 20.3% MACE over next 6 weeks - Admit for Clinical Observation Score 7 - 10: 72.7% MACE over next 6 weeks - Early Invasive Strategies Course & Med Decision Making: Course & Med Decision Making Pertinent Labs and Imaging studies reviewed. (See chart for details) The patient's head CT is negative for acute findings. His labs are unremarkable. He refuses to pee for us even after giving him fluids. He is stable for discharge at this time. [] Dragon Disclaimer: Dragon Disclaimer: This electronic medical record was generated, in whole or in part, using a voice recognition dictation system. Departure Departure: Impression: Primary Impression: Altered mental status Qualified Codes: R41.0 - Disorientation, unspecified Disposition: 01 HOME / SELF CARE / HOMELESS Condition: STABLE Referrals: LORI WOOTEN MD (PCP) Patient Instructions: Altered Mental Status RAQUEL MATTSON DO Feb 25, 2021 14:07
[2021-02-25 14:13] LABS: BASO # 0.1 x10^3/uL (0.0-0.2); BASO % 1 % (0-3); EOS # 0.2 x10^3/uL (0.0-0.7); EOS % 2 % (0-3); HEMATOCRIT 43.4 % (39.0-53.0); HEMOGLOBIN 14.7 g/dL (13.0-17.5); LYMPH # 4.3 x10^3/uL (1.0-4.8); LYMPH % 40 % (24-48); MEAN CORPUSCULAR HEMOGLOBIN 30 pg (25-35); MEAN CORPUSCULAR HGB CONC 34 g/dL (31-37); MEAN CORPUSCULAR VOLUME 88 fL (79-100); MONO # 0.9 x10^3/uL (0.0-1.1); MONO % 9 % (0-9); NEUT # 5.2 x10^3uL (1.8-7.7); NEUT % 49 % (31-73); PLATELET COUNT 349 x10^3/uL (140-400); RED BLOOD COUNT 4.93 x10^6/uL (4.30-5.70); RED CELL DISTRIBUTION WIDTH 14.5 % (11.5-14.5); WHITE BLOOD COUNT 10.7 x10^3/uL (4.0-11.0)
[2021-02-25 14:29] LABS: CALCIUM 8.9 mg/dL (8.5-10.1); CREATININE 1.1 mg/dL (0.7-1.3); GFR 82.6; POTASSIUM 3.4 mmol/L (3.5-5.1)
[2021-02-25 14:35] LABS: ALBUMIN 3.9 g/dL (3.4-5.0); ALBUMIN/GLOBULIN RATIO 1.1 (1.0-1.7); TOTAL BILIRUBIN 0.2 mg/dL (0.2-1.0); TOTAL PROTEIN 7.6 g/dL (6.4-8.2)
[2021-02-25] MEDS ORDERED: IV NORMAL SALINE 1,000ML 1,000 ML IV ONE (15:15)
[2021-02-25] MEDS ORDERED: IOHEXOL 300 MG/ML 75 ML VIAL. IV ONE (15:30)
--- NOTE | 2021-02-25 15:52 | RAD ---
CT HEAD WITHOUT CONTRAST 02/25/2021 3:35 PM Indication: Reason: AMS / Spl. Instructions: / History: Comparison: CT of the head without contrast December 31, 2020 Procedure: Multidetector CT imaging of the head was performed without the administration of contrast. Findings: No evidence of acute intracranial hemorrhage is identified. Large area of encephalomalacia within the right frontal, parietotemporal and occipital cortex noted, similar to comparison study. Al lowing for these changes the ventricles and basilar cisterns have an expected appearance. Prior lacun ar infarct in the left basal ganglia noted. No acute abnormal extra-axial fluid collection is identif ied. No occlusive acute midline shift or mass effect is seen. No acute osseous changes are identified . IMPRESSION: 1. Grossly stable exam without evidence of acute intracranial abnormality. 2. Large area of encephalomalacia within the right frontal, parietotemporal and occipital cortex note d, similar to comparison study. CT DOSING PQRS STATEMENT: One or more of the following individualized dose reduction techniques were utilized for this examinat ion: 1. Automated exposure control 2. Adjustment of the mA and/or kV according to patient size 3. Use of iterative reconstruction technique Electronically signed by: Anand Bernard MD (02/25/2021 3:50 PM) [id number]
[2021-02-25 17:29] LABS: BARBITURATES POS (NEG); BENZODIAZEPINES NEG (NEG); CANNABINOIDS POS (NEG); COCAINE NEG (NEG); METHADONE NEG (NEG); OPIATES POS (NEG); PHENCYCLIDINE NEG (NEG)
[2021-02-25] MEDS ORDERED: HYDROcodone/APAP 5/325MG 1 TAB TABLET PO ONE (17:30)
[2021-02-25] MEDS ORDERED: HYDROcodone/APAP 7.5/325MG 1 TAB TABLET PO ONE (17:30)
[2021-02-25 17:34] VITALS: BP 148/79
[2021-02-25 17:35] LABS: AMPHETAMINE/METHAMPHETAMINE NEG (NEG)
[2021-02-25 17:41] LABS: BILIRUBIN,URINE NEG (NEG); CLARITY,URINE CLEAR; COLOR,URINE YELLOW; GLUCOSE,URINE NEG (NEG)
[2021-02-25 17:42] LABS: BACTERIA,URINE 0 /HPF (0-FEW); NITRITE,URINE NEG (NEG); SQUAMOUS EPITHELIAL CELL,UR OCC /LPF; WBC,URINE OCC /HPF (0-4)
== END 2021-02-25 18:00 | disposition home or self-care (01) ==
LOC: ER 13:41
DX: R41.82 Altered mental status, unspecified (principal); R51.9 Headache, unspecified; E78.00 Pure hypercholesterolemia, unspecified; I10 Essential (primary) hypertension; G89.29 Other chronic pain; F17.210 Nicotine dependence, cigarettes, uncomplicated; V89.9XXA Person injured in unspecified vehicle accident, initial encounter; Y93.89 Activity, other specified; Y92.89 Other specified places as the place of occurrence of the external cause; Y99.8 Other external cause status
CPT/HCPCS: 36415; 70450; 80053; 80307; 81001; 85025; 93005; 96360; 96361; 99285; G0480; J7030

== ENCOUNTER 2021-03-16 20:04 | Emergency (ER) | payer OTHER ==
[~2021-03-16] VITALS: Ht 188 cm; Wt 91.0 kg
--- NOTE | 2021-03-16 20:24 | RAD ---
Exam: CT head INDICATION: Headache TECHNIQUE: Sequential axial images through the head were obtained without the administration of IV co ntrast. Exposure: One or more of the following in the visualized dose reduction techniques were utilized for this examination: 1. Automated exposure control 2. Adjustment of the MA and/or KV according to patient size 3. Use of iterative of reconstructive technique Comparisons: None FINDINGS: No focal parenchymal lesion or hemorrhage is identified. There is no midline shift or sulcal effaceme nt. Chronic large right infarct involving the right parietal and occipital lobes. No acute vascular hector tory infarction is identified. Bonilla-white distinction is preserved. The ventricular system is within normal limits without compression hydrocephalus. The basal cisterns are well maintained. The visualized portions of the paranasal sinuses and mastoid air cells are well-pneumatized. No acute fractures. IMPRESSION: No acute intracranial abnormality. No acute hemorrhage. FOR INTERNAL CODING PURPOSES Critical result: Findings discussed with Condra at 03/16/2021 8:17 PM. RESULT CODE: (C) Electronically signed by: Fe Valenzuela MD (03/16/2021 8:21 PM) [facility]
[2021-03-16 20:34] LABS: BASO # 0.1 x10^3/uL (0.0-0.2); BASO % 1 % (0-3); EOS # 0.2 x10^3/uL (0.0-0.7); EOS % 2 % (0-3); HEMATOCRIT 40.9 % (39.0-53.0); HEMOGLOBIN 13.6 g/dL (13.0-17.5); LYMPH # 4.6 x10^3/uL (1.0-4.8); LYMPH % 39 % (24-48); MEAN CORPUSCULAR HEMOGLOBIN 30 pg (25-35); MEAN CORPUSCULAR HGB CONC 33 g/dL (31-37); MEAN CORPUSCULAR VOLUME 89 fL (79-100); MONO # 1.1 x10^3/uL (0.0-1.1); MONO % 10 % (0-9); NEUT # 5.6 x10^3uL (1.8-7.7); NEUT % 48 % (31-73); PLATELET COUNT 323 x10^3/uL (140-400); RED BLOOD COUNT 4.59 x10^6/uL (4.30-5.70); RED CELL DISTRIBUTION WIDTH 15.4 % (11.5-14.5); WHITE BLOOD COUNT 11.6 x10^3/uL (4.0-11.0)
[2021-03-16] MEDS ORDERED: MORPHINE SULFATE 2 MG/ML DISP.SYRIN. ONE (20:43)
[2021-03-16] MEDS ORDERED: ONDANSETRON PF 4 MG/2 ML VIAL. ONE (20:43)
[2021-03-16] MEDS ORDERED: diphenhydrAMINE 50 MG/ML VIAL ONE (20:43)
--- NOTE | 2021-03-16 20:47 | PHYS DOC ---
Past History Past Medical History: High Cholesterol, Hypertension, Sciatica Additional Past Medical Histor: CHRONIC BACK PAIN, NEUROPATHY Past Surgical History: Appendectomy, Other Additional Past Surgical Histo: right shoulder, lumbar spine Smoking: Cigar Alcohol Use: Occasionally Drug Use: None Adult General Chief Complaint Chief Complaint: NEURO SYMPTOMS/DEFICITS HPI HPI Patient is a 60-year-old male with a past medical history significant for multiple TIAs and right sided CVA, hypertension and hyperlipidemia on aspirin who presents with a chief complaint of acute onset lightheadedness and left- sided headache, 10 out of 10, sharp in nature that started at approximately 4 PM. States he was sitting outside on his porch, and began to get lightheaded, stood up to go inside and after the headache began and has been relatively constant since then. Has had nausea but no vomiting. Denies any recent traumas, travels, fevers, neck pain, changes in vision, chest pain, shortness of breath, abdominal pain, dysuria, hematuria, diarrhea or blood in the stool. Review of Systems Review of Systems Review of systems otherwise unremarkable except noted in HPI Current Medications Current Medications Current Medications Medications (Trade) Dose Ordered Sig/Taras Start Time Stop Time Status Last Admin Dose Admin Iohexol (Omnipaque 350 Mg/ml) 100 ml 1X ONCE 03/16/21 20:30 03/16/21 20:31 UNV Lactated Ringer's 1,000 ml @ 1,000 mls/hr 1X ONCE 03/16/21 20:30 03/16/21 21:29 UNV Allergies Allergies Allergies Coded Allergies Type Severity Reaction Last Updated Verified No Known Drug Allergies 02/25/21 No Physical Exam Physical Exam Constitutional: Well developed, well nourished, no acute distress, non-toxic appearance. [] HENT: Normocephalic, atraumatic, bilateral external ears normal, oropharynx moist, no oral exudates, nose normal. [] Eyes: PERRLA, EOMI, conjunctiva normal, no discharge. [] Neck: Normal range of motion, no tenderness, supple, no stridor. [] Cardiovascular:Heart rate regular rhythm, no murmur [] Lungs & Thorax: Bilateral breath sounds clear to auscultation [] Abdomen: Bowel sounds normal, soft, no tenderness, no masses, no pulsatile masses. [] Skin: Warm, dry, no erythema, no rash. [] Back: No tenderness, no CVA tenderness. [] Extremities: No tenderness, no cyanosis, no clubbing, ROM intact, no edema. [] Neurologic: GCS of 15. Residual upper left and lower left motor function deficit 2 out of 10 which is baseline for him, sensation normal/baseline for him since stroke, left thigh visual deficit which is residual from last stroke and not worse than before, right side motor, sensation normal. Outside of left eye deficit cranial nerves normal. Psychologic: Affect normal, judgement normal, mood normal. [] Current Patient Data Vital Signs Vital Signs Date Time Temp Pulse Resp B/P (MAP) Pulse Ox O2 Delivery O2 Flow Rate FiO2 03/16/21 20:34 66 16 172/94 (120) 98 Room Air 03/16/21 20:21 98.5 Lab Results Laboratory Tests Test 03/16/21 20:10 White Blood Count 11.6 x10^3/uL (4.0-11.0) H Red Blood Count 4.59 x10^6/uL (4.30-5.70) Hemoglobin 13.6 g/dL (13.0-17.5) Hematocrit 40.9 % (39.0-53.0) Mean Corpuscular Volume 89 fL (79-100) Mean Corpuscular Hemoglobin 30 pg (25-35) Mean Corpuscular Hemoglobin Concent 33 g/dL (31-37) Red Cell Distribution Width 15.4 % (11.5-14.5) H Platelet Count 323 x10^3/uL (140-400) Neutrophils (%) (Auto) 48 % (31-73) Lymphocytes (%) (Auto) 39 % (24-48) Monocytes (%) (Auto) 10 % (0-9) H Eosinophils (%) (Auto) 2 % (0-3) Basophils (%) (Auto) 1 % (0-3) Neutrophils # (Auto) 5.6 x10^3uL (1.8-7.7) Lymphocytes # (Auto) 4.6 x10^3/uL (1.0-4.8) Monocytes # (Auto) 1.1 x10^3/uL (0.0-1.1) Eosinophils # (Auto) 0.2 x10^3/uL (0.0-0.7) Basophils # (Auto) 0.1 x10^3/uL (0.0-0.2) EKG EKG [] Radiology/Procedures Radiology/Procedures [] CTA NECK: Visualized portions of the thoracic aorta are unremarkable. Two-vessel aortic arch configuration with common origin of the brachiocephalic and left common carotid arteries. Right common carotid artery is patent without evidence of stenosis, occlusion or aneurysm. Minimal plaque at the origin of the right internal carotid artery without significant stenosis. Left common carotid artery is patent without evidence of stenosis, occlusion or aneurysm. Minimal plaque at the origin of the left internal carotid artery without significant stenosis. Right vertebral artery is patent to the basilar confluence without evidence of stenosis, occlusion or aneurysm. Left vertebral artery is patent to basilar confluence without evidence of stenosis, occlusion or aneurysm. Visualized paraspinal soft tissues are unremarkable. CTA HEAD: Mild calcified and noncalcified plaque at the cavernous segment of the right internal carotid artery without significant stenosis. 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 Right SANJU is patent. Minimal calcified and noncalcified plaque at the cavernous segment of the left internal carotid artery without significant stenosis. Left MCA is patent. Left SANJU is patent. Scattered areas of multifocal narrowing noted throughout the ACAs and left MCA. Basilar artery is patent without evidence of stenosis, occlusion or aneurysm. business reporter are patent bilaterally. IMPRESSION: 1. No evidence for intracranial aneurysm. 2. Minimal plaque at the origin of the internal carotid arteries bilaterally without significant stenosis. 3. Chronic right M1 occlusion again noted. 4. Scattered areas of [id number] stenosis throughout the intracranial vessels, similar prior Electronically signed by: Fe Valenzuela MD (03/16/2021 9:12 PM) [facility] Heart Score C/O Chest Pain: No Risk Factors: Risk Factors: DM, Current or recent (<one month) smoker, HTN, HLP, family history of CAD, obesity. Risk Scores: Risk Factors: DM, Current or recent (<one month) smoker, HTN, HLP, family history of CAD, obesity. Course & Med Decision Making Course & Med Decision Making Patient a 60-year-old male who presents with a chief complaint of acute onset le ft-sided headache Vital signs notable for hypertension. Physical exam noted above. EKG noted above with no STEMI but abnormal with A. fib/flutter. Initial head CT with no new acute hemorrhage, mass or findings. Laboratory analysis not concerning. CT of the head with no new acute findings. CTA of the head and neck with no evidence for intracranial aneurysm, nothing new or acute and chronic right M1 occlusion noted again. On reassessment patient stated headache had resolved, he was feeling much better and wanted to be discharged home. Discussed findings with patient and discussed the need for admission given risk factors. Advised that it would probably best to stay in the hospital given risk factors for some observation and repeat neurologic exams. Patient stated he was feeling much better and just wanted to go home and would come back if he started feeling worse. States he would also call his primary care physician in the morning. Discharge blood pressure 166/69, heart rate of 68, breathing room air to 100%. Dragon Disclaimer Dragon Disclaimer This electronic medical record was generated, in whole or in part, using a voice recognition dictation system. Departure Departure: Impression: Primary Impression: Headache Additional Impression: HTN (hypertension) Disposition: HOME / SELF CARE / HOMELESS Condition: STABLE Referrals: LORI WOOTEN MD (PCP) Patient Instructions: General Headache Without Cause, Headache, FAQs Additional Instructions: Thank you for coming into the emergency department tonight and allowing us to ta ke care of you. Please read the attached information above to go back over some of the things we discussed. It is very important that you call your primary care physician first thing in the morning to update on ED visit and set up a follow- up as soon as possible. As we discussed we thought it would be best for you to stay in the hospital tonight and be observed and have frequent neuro exams to be sure that your symptoms did not worsen. We discussed that given your previous strokes and risk factors, we want to be sure that all was okay. The risk of you leaving given your risk factors and possibility, although it small of you having a recurrent stroke, TIA, significant illness, fall, disability or even the worst case scenario . He stated that you were feeling better and just wanted to go home and would follow-up with your doctor in the morning or return to the ED with new symptoms. Please come back to the ED with new or concerning symptoms as we discussed. Problem Qualifiers BROOKLYN JEONG MD Mar 16, 2021 20:47
[2021-03-16 20:51] LABS: CALCIUM 9.3 mg/dL (8.5-10.1); GFR 92.2; POTASSIUM 4.2 mmol/L (3.5-5.1)
[2021-03-16] MEDS: IOHEXOL 350 MG/ML 100 ML VIAL. IV ONE (20:54)
[2021-03-16 20:59] LABS: ALBUMIN 3.8 g/dL (3.4-5.0); ALBUMIN/GLOBULIN RATIO 1.2 (1.0-1.7); TOTAL BILIRUBIN 0.3 mg/dL (0.2-1.0); TOTAL PROTEIN 7.1 g/dL (6.4-8.2)
[2021-03-16] MEDS: ACETAMINOPHEN 500 MG TABLET PO ONE (21:06)
[2021-03-16] MEDS: MORPHINE SULFATE 2 MG/ML DISP.SYRIN. IV ONE (21:06)
[2021-03-16] MEDS: IV RINGERS SOLUTION,LACTATED 1,000 ML IV ONE (21:06)
[2021-03-16] MEDS: ONDANSETRON PF 4 MG/2 ML VIAL. IVP ONE (21:07)
[2021-03-16] MEDS: diphenhydrAMINE 50 MG/ML VIAL IVP ONE (21:07)
--- NOTE | 2021-03-16 21:14 | RAD ---
Exam: CTA head and neck INDICATION: Headache TECHNIQUE: Sequential axial images through the head and neck obtained following the administration of 75 mL of Omni 350 IV contrast. Sagittal and coronal reformatted images were reconstructed from the a xial data and reviewed. 3-D reformatted images were reconstructed from the axial data and reviewed. Exposure: One or more of the following in the visualized dose reduction techniques were utilized for this examination: 1. Automated exposure control 2. Adjustment of the MA and/or KV according to patient size 3. Use of iterative of reconstructive technique Comparisons: CT head without contrast same day, CTA had and neck a 2020 FINDINGS: CTA NECK: Visualized portions of the thoracic aorta are unremarkable. Two-vessel aortic arch configuration with common origin of the brachiocephalic and left common carotid arteries. Right common carotid artery is patent without evidence of stenosis, occlusion or aneurysm. Minimal pl aque at the origin of the right internal carotid artery without significant stenosis. Left common carotid artery is patent without evidence of stenosis, occlusion or aneurysm. Minimal christy que at the origin of the left internal carotid artery without significant stenosis. Right vertebral artery is patent to the basilar confluence without evidence of stenosis, occlusion or aneurysm. Left vertebral artery is patent to basilar confluence without evidence of stenosis, occlusion or aneu rysm. Visualized paraspinal soft tissues are unremarkable. CTA HEAD: Mild calcified and noncalcified plaque at the cavernous segment of the right internal carotid artery without significant stenosis. 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 Ri ght SANJU is patent. Minimal calcified and noncalcified plaque at the cavernous segment of the left internal carotid arter y without significant stenosis. Left MCA is patent. Left SANJU is patent. Scattered areas of multifocal narrowing noted throughout the ACAs and left MCA. Basilar artery is patent without evidence of stenosis, occlusion or aneurysm. signal intelligence/electronic warfare are patent bilater ally. IMPRESSION: 1. No evidence for intracranial aneurysm. 2. Minimal plaque at the origin of the internal carotid arteries bilaterally without significant taty nosis. 3. Chronic right M1 occlusion again noted. 4. Scattered areas of ecax-hp-ilmgvpdm stenosis throughout the intracranial vessels, similar prior Electronically signed by: Fe Valenzuela MD (03/16/2021 9:12 PM) [facility]
[2021-03-16] MEDS: hydrALAZINE 20 MG/ML VIAL. IV ONE (21:53)
[2021-03-16 22:48] VITALS: BP 170/79
[2021-03-16] MEDS: oxyCODONE IR 5 MG TABLET PO ONE (23:05)
--- NOTE | 2021-03-17 06:35 | EKG ---
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
== END 2021-03-16 23:07 | disposition home or self-care (01) ==
LOC: ER 20:04
DX: R51.9 Headache, unspecified (principal); I10 Essential (primary) hypertension; R42 Dizziness and giddiness; E78.5 Hyperlipidemia, unspecified; F17.200 Nicotine dependence, unspecified, uncomplicated
CPT/HCPCS: 36415; 70450; 70496; 70498; 80053; 83735; 84484; 85025; 93005; 96361; 96374; 96375; 99285; J0360; J1200; J2270; J2405; J7120; Q9967

== ENCOUNTER 2021-04-07 10:34 | Emergency (ER) | payer OTHER ==
[~2021-04-07] VITALS: Ht 188 cm; Wt 88.1 kg
[2021-04-07 11:24] LABS: CALCIUM 9.6 mg/dL (8.5-10.1); GFR 92.2; POTASSIUM 4.3 mmol/L (3.5-5.1)
[2021-04-07 11:27] LABS: BASO # 0.1 x10^3/uL (0.0-0.2); BASO % 1 % (0-3); EOS # 0.1 x10^3/uL (0.0-0.7); EOS % 1 % (0-3); HEMATOCRIT 42.8 % (39.0-53.0); HEMOGLOBIN 14.2 g/dL (13.0-17.5); LYMPH % 29 % (24-48); MEAN CORPUSCULAR HEMOGLOBIN 30 pg (25-35); MEAN CORPUSCULAR HGB CONC 33 g/dL (31-37); MEAN CORPUSCULAR VOLUME 89 fL (79-100); MONO # 0.8 x10^3/uL (0.0-1.1); MONO % 8 % (0-9); NEUT # 6.2 x10^3uL (1.8-7.7); NEUT % 61 % (31-73); PLATELET COUNT 388 x10^3/uL (140-400); RED BLOOD COUNT 4.79 x10^6/uL (4.30-5.70); RED CELL DISTRIBUTION WIDTH 15.1 % (11.5-14.5); WHITE BLOOD COUNT 10.1 x10^3/uL (4.0-11.0)
[2021-04-07 11:31] LABS: ALBUMIN/GLOBULIN RATIO 1.1 (1.0-1.7); TOTAL BILIRUBIN 0.8 mg/dL (0.2-1.0); TOTAL PROTEIN 7.5 g/dL (6.4-8.2)
--- NOTE | 2021-04-07 11:33 | RAD ---
CT HEAD AND C-SPINE WO Date: 04/07/2021 11:07 AM Clinical Indication: headache, syncope Comparison: 03/16/2021. Technique: 5 mm axial tomographic images were obtained of the head without contrast. These were view ed on brain and bone windows. CT imaging of the cervical spine was performed without contrast. Coron al and sagittal reformatted images were performed. One or more of the following dose reduction techni ques were utilized: Automated exposure control (AEC), Adjustment of mA and/or kV according to patient size, Use of iterative reconstruction technique such as ASiR, CT scan done according to ALARA and im age gently/image wisely HEAD FINDINGS: Large area of right parieto-occipital encephalomalacia. No intra- or extra-axial mass or fluid collec tion. No acute hemorrhage. The ventricles are normal in size, shape, and morphology. The perdomo-white m atter junction is normal. The basilar cisterns are patent. The visualized paranasal sinuses are normal. The visualized portions of the orbits and globes are no rmal. The mastoid air cells are clear. No aggressive osseous lesion or fracture. CERVICAL SPINE FINDINGS: Straightening of the cervical lordosis. No acute fracture. Tiny right cervical rib. Mild multilevel degenerative disc height loss. No high-grade spinal canal stenosis or neural foramina l narrowing. Stable enlarged axillary. No cervical lymphadenopathy. The visualized aerodigestive tract is unremark able. The visualized lung apices are clear. IMPRESSION: 1. No acute intracranial process. 2. No acute osseous abnormality of the cervical spine. Electronically signed by: Alvaro Celestin MD (04/07/2021 11:31 AM) [id number]
--- NOTE | 2021-04-07 11:43 | RAD ---
Site ID: [id number] EXAMINATION: XR SHOULDER_LEFT 2+ VIEWS. HISTORY: 60 years Male fall COMPARISON: None. FINDINGS: No fracture, dislocation or radiopaque foreign body. There are mild degenerative changes at the ac romioclavicular and glenohumeral joints. Minimal inferior osteophytes is seen at both joints. IMPRESSION: No acute process. Electronically signed by: Santo Javed MD (04/07/2021 11:40 AM) [id number]
--- NOTE | 2021-04-07 11:44 | RAD ---
Site ID: [id number] EXAMINATION: XR CHEST 1V. HISTORY: 60 years Male syncope. COMPARISON: December 31, 2020. Findings: The lungs are clear. The heart size is normal. There is no effusion or pneumothorax. The mediastinum and cindy appear unremarkable. Impression: Unremarkable portable chest radiograph. Electronically signed by: Santo Javed MD (04/07/2021 11:41 AM) [id number]
--- NOTE | 2021-04-07 11:47 | EKG ---
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
--- NOTE | 2021-04-07 12:26 | PHYS DOC ---
Past History Past Medical History: High Cholesterol, Hypertension, Sciatica Additional Past Medical Histor: CHRONIC BACK PAIN, NEUROPATHY (REINA MAXWELL APRN) Past Surgical History: Appendectomy, Other Additional Past Surgical Histo: right shoulder, lumbar spine (REINA MAXWELL APRN) Smoking: Cigar Alcohol Use: Occasionally Drug Use: None (REINA MAXWELL APRN) General Adult EDM: Chief Complaint: MECHANICAL FALL HPI: HPI: Patient is a 60-year-old male who presents after syncopal episode. Patient's nephew was at the house and witnessed him fall. Patient states he fell on his left side. Denies hitting his head. Patient does report left shoulder pain and headache. Patient states "I have had a headache for the last 3 months since I had my stroke". Patient denies taking anything for the headache. Patient reports he has left-sided weakness due to previous stroke. No new deficits noted. Denies chest pain, dizziness, shortness of breath, nausea/vomiting, visual changes. He has history of hypertension, CVA, cluster headaches. (REINA MAXWELL APRN) Review of Systems: Review of Systems: ROS At least 10 ROS systems have been reviewed and are negative except as documented in the HPI. General: Negative except as outlined in HPI above. Skin: Negative except as outlined in HPI above. HEENT: Negative except as outlined in HPI above. Neck: Negative except as outlined in HPI above. Respiratory: Negative except as outlined in HPI above.. Cardiovascular: Negative except as outlined in HPI above. Abdomen: Negative except as outlined in HPI above. : Negative except as outlined in HPI above. Back/MSK: Negative except as outlined in HPI above. Neuro: Negative except as outlined in HPI above. Psych: Negative except as outlined in HPI above. (REINA MAXWELL MEDICATION AIDE) Allergies: Allergies: Allergies Coded Allergies Type Severity Reaction Last Updated Verified No Known Drug Allergies 04/07/21 No (REINA MAXWELL APRN) Physical Exam: PE: Constitutional: Well developed, well nourished, no acute distress, non-toxic appearance. [] HENT: Normocephalic, atraumatic, bilateral external ears normal, oropharynx moist, no oral exudates, nose normal. [] Eyes: PERRLA, EOMI, conjunctiva normal, no discharge. [] Neck: Normal range of motion, no tenderness, supple, no stridor. [] Cardiovascular:Heart rate regular rhythm, no murmur [] Lungs & Thorax: Bilateral breath sounds clear to auscultation [] Abdomen: Bowel sounds normal, soft, no tenderness, no masses, no pulsatile masses. [] Skin: Warm, dry, no erythema, no rash. [] Back: No tenderness, no CVA tenderness. [] Extremities: Left shoulder tenderness, no cyanosis, no clubbing, ROM intact, no edema. [] Neurologic: Alert and oriented X 3, normal motor function, normal sensory function, no new focal deficits noted. [] Psychologic: Affect normal, judgement normal, mood normal. [] (REINA MAXWELL APRN) Current Patient Data: Labs: Laboratory Tests Test 04/07/21 10:58 04/07/21 11:02 White Blood Count 10.1 x10^3/uL (4.0-11.0) Red Blood Count 4.79 x10^6/uL (4.30-5.70) Hemoglobin 14.2 g/dL (13.0-17.5) Hematocrit 42.8 % (39.0-53.0) Mean Corpuscular Volume 89 fL (79-100) Mean Corpuscular Hemoglobin 30 pg (25-35) Mean Corpuscular Hemoglobin Concent 33 g/dL (31-37) Red Cell Distribution Width 15.1 % (11.5-14.5) H Platelet Count 388 x10^3/uL (140-400) Neutrophils (%) (Auto) 61 % (31-73) Lymphocytes (%) (Auto) 29 % (24-48) Monocytes (%) (Auto) 8 % (0-9) Eosinophils (%) (Auto) 1 % (0-3) Basophils (%) (Auto) 1 % (0-3) Neutrophils # (Auto) 6.2 x10^3uL (1.8-7.7) Lymphocytes # (Auto) 3.0 x10^3/uL (1.0-4.8) Monocytes # (Auto) 0.8 x10^3/uL (0.0-1.1) Eosinophils # (Auto) 0.1 x10^3/uL (0.0-0.7) Basophils # (Auto) 0.1 x10^3/uL (0.0-0.2) Sodium Level 139 mmol/L (136-145) Potassium Level 4.3 mmol/L (3.5-5.1) Chloride Level 103 mmol/L (98-107) Carbon Dioxide Level 27 mmol/L (21-32) Anion Gap 9 (6-14) Blood Urea Nitrogen 16 mg/dL (8-26) Creatinine 1.0 mg/dL (0.7-1.3) Estimated GFR (Cockcroft-Gault) 92.2 BUN/Creatinine Ratio 16 (6-20) Glucose Level 125 mg/dL (70-99) H Calcium Level 9.6 mg/dL (8.5-10.1) Total Bilirubin 0.8 mg/dL (0.2-1.0) Aspartate Amino Transferase (AST) 15 U/L (15-37) Alanine Aminotransferase (ALT) 26 U/L (16-63) Alkaline Phosphatase 92 U/L (46-116) Troponin I Quantitative < 0.017 ng/mL (0-0.055) Total Protein 7.5 g/dL (6.4-8.2) Albumin 4.0 g/dL (3.4-5.0) Albumin/Globulin Ratio 1.1 (1.0-1.7) Glucose (Fingerstick) 130 mg/dL (70-99) H Vital Signs: Vital Signs Date Time Temp Pulse Resp B/P (MAP) Pulse Ox O2 Delivery O2 Flow Rate FiO2 /30/21 10:43 98.4 85 24 150/80 (103) 98 Room Air (REINA MAXWELL APRN) EKG: EKG: [] (REINA MAXWELL APRN) Radiology/Procedures: Radiology/Procedures: [] (REINA MAXWELL APRN) Heart Score: C/O Chest Pain: No Risk Factors: Risk Factors: DM, Current or recent (<one month) smoker, HTN, HLP, family history of CAD, obesity. Risk Scores: Score 0 - 3: 2.5% MACE over next 6 weeks - Discharge Home Score 4 - 6: 20.3% MACE over next 6 weeks - Admit for Clinical Observation Score 7 - 10: 72.7% MACE over next 6 weeks - Early Invasive Strategies (REINA MAXWELL APRN) Course & Med Decision Making: Course & Med Decision Making Pertinent Labs and Imaging studies reviewed. (See chart for details) [] 6-year-old male presents after a syncopal episode at home. Patient's nephew was with him and witnessed him fall. Patient complaining of left shoulder pain. Patient has left-sided deficits from a stroke 3 months ago. Patient is also complaining of a headache. Patient has chronic migraines since his stroke. CT head neck negative for any intracranial bleeding or fractures. Chest x-ray unremarkable. Left shoulder x-rays negative for fracture. Patient's labs are remarkable. Patient given Benadryl and Toradol to treat headache. Patient states his pain has resolved. Denying headache at this time. Discussed results with patient. Patient states that he is ready to go home. Advised patient that he needs to follow back up with neurology. Patient states that he understands discharge instructions. Patient given strict return precautions. Patient is hemodynamically stable upon disposition. (REINA MAXWELL APRN) Dragon Disclaimer: Dragon Disclaimer: This electronic medical record was generated, in whole or in part, using a voice recognition dictation system. (REINA MAXWELL APRN) Attending Co-Sign The patient was seen and interviewed as well as examined at the bedside. The chart was reviewed. The case was discussed. Agree with the plan of care. (RAQUEL MATTSON DO) Departure Departure: Impression: Primary Impression: Syncope, near Additional Impression: Cluster headache Qualified Codes: G44.029 - Chronic cluster headache, not intractable Disposition: HOME / SELF CARE / HOMELESS Condition: STABLE Referrals: LORI WOOTEN MD (PCP) Patient Instructions: Cluster Headache, [id number], Syncope, [id number] Additional Instructions: You are seen in the emergency room for headache and near syncopal episode. All of your labs were unremarkable. The CT of your head was negative for any acute abnormalities. We also x-rayed your left shoulder which was negative for fracture. You were given medication to treat your headache which resolved prior to discharge. Please call your PCP make a follow-up appointment along with neurology. Return to the emergency room if you have worsening symptoms or concerns peer EMERGENCY DEPARTMENT GENERAL DISCHARGE INSTRUCTIONS Thank you for coming to [facility] (ED) today and trusting us with you care. We trust that you had a positivie experience in our Emergency Department. If you wish to speak to the department management, you may call the director at [phone]. YOUR FOLLOW UP INSTRUCTIONS ARE FOLLOWS: 1. Do you have a private Doctor? If you do not have a private doctor, please ask for a resource list of physicians or clinics that may be able to assist you with follow up care. 2. The Emergency Physician has interpreted your x-rays. The X-Ray specialist will also review them. If there is a change in the findings, you will be notified in 48 hours when at all possible. 3. A lab test or culture has been done, your results will be reviewed and you will be notified if you need a change in treatment. ADDITIONAL INSTRUCTIONS AND INFORMATION: 1. Your care today has been supervised by a physician who is specially trained in emergency care. Many problems require more than one evaluation for a complete diagnosis and treatment. We recommend that you schedule your follow up appointment as recommended to ensure complete treatment of you illness or injury. If you are unable to obtain follow up care and continue to have a problem, or if your condition worsens, we recommend that you return to the ED. 2. We are not able to safely determine your condition over the phone nor are we able to give sound medical advice over the phone. For these safety reasons, if you call for medical advice we will ask you to come to the ED for further evaluation. 3. If you have any questions regarding these discharge instructions please call the ED at [phone]. SAFETY INFORMATION: In the interest of safety, wellness, and injury prevention; we encourage you to wear your sealbelt, if you smoke; quite smoking, and we encourage family to use a protective helmet for bicycling and other sporting events that present an increased risk for head injury. IF YOUR SYMPTOMS WORSEN OR NEW SYMPTOMS DEVELOP, OR YOU HAVE CONCERNS ABOUT YOUR CONDITION; OR IF YOUR CONDITION WORSENS WHILE YOU ARE WAITING FOR YOUR FOLLOW UP APPOINTMENT; EITHER CONTACT YOUR PRIMARY CARE DOCTOR, THE PHYSICIAN WHOSE NAME AND NUMBER YOU WERE GIVEN, OR RETURN TO THE ED IMMEDIATELY. REINA MAXWELL APRN Apr 07, 2021 12:26 RAQUEL MATTSON DO Apr 08, 2021 06:12
[2021-04-07] MEDS ORDERED: diphenhydrAMINE 50 MG/ML VIAL IVP ONE (12:30)
[2021-04-07] MEDS ORDERED: KETOROLAC 15 MG/ML VIAL. IVP ONE (12:30)
[2021-04-07 14:23] VITALS: BP 153/89
== END 2021-04-07 14:46 | disposition home or self-care (01) ==
LOC: ER 10:34
DX: R55 Syncope and collapse (principal); G44.009 Cluster headache syndrome, unspecified, not intractable; E78.5 Hyperlipidemia, unspecified; I10 Essential (primary) hypertension; F17.200 Nicotine dependence, unspecified, uncomplicated; M25.512 Pain in left shoulder; W18.00XA Striking against unspecified object with subsequent fall, initial encounter; Y93.89 Activity, other specified; Y92.89 Other specified places as the place of occurrence of the external cause; Y99.8 Other external cause status
CPT/HCPCS: 36415; 70450; 71045; 72125; 73030; 80053; 82947; 84484; 85025; 93005; 96374; 96375; 99285; J1200; J1885

== ENCOUNTER → 2021-04-21 | Outpatient (CLI) | payer OTHER ==
[2021-04-07 14:23] VITALS: BP 153/89
== END ==
LOC: LAB 15:14
PROVIDERS: ATTEND Internal Medicine Cardiovascular Disease
DX: I73.9 Peripheral vascular disease, unspecified (principal)
CPT/HCPCS: 80061

== ENCOUNTER 2021-05-31 08:42 | Emergency (ER) | payer OTHER ==
[~2021-05-31] VITALS: Ht 188 cm; Wt 91.0 kg
[~2021-05-31 08:42] MED LIST changes: -CYCL-331 PO; +CYCL10TA19 PO
[2021-05-31] MEDS ORDERED: IV NORMAL SALINE 1,000ML 1,000 ML IV ONE (09:00)
[2021-05-31 09:06] LABS: BASO # 0.1 x10^3/uL (0.0-0.2); BASO % 1 % (0-3); EOS # 0.2 x10^3/uL (0.0-0.7); EOS % 3 % (0-3); HEMATOCRIT 42.7 % (39.0-53.0); LYMPH # 2.2 x10^3/uL (1.0-4.8); LYMPH % 33 % (24-48); MEAN CORPUSCULAR HEMOGLOBIN 30 pg (25-35); MEAN CORPUSCULAR HGB CONC 33 g/dL (31-37); MEAN CORPUSCULAR VOLUME 90 fL (79-100); MONO # 0.6 x10^3/uL (0.0-1.1); MONO % 9 % (0-9); NEUT # 3.6 x10^3uL (1.8-7.7); NEUT % 54 % (31-73); PLATELET COUNT 280 x10^3/uL (140-400); RED BLOOD COUNT 4.73 x10^6/uL (4.30-5.70); RED CELL DISTRIBUTION WIDTH 14.1 % (11.5-14.5); WHITE BLOOD COUNT 6.7 x10^3/uL (4.0-11.0)
--- NOTE | 2021-05-31 09:07 | RAD ---
EXAM: Chest, single view. HISTORY: Weakness. COMPARISON: 04/07/2021 FINDINGS: A frontal view of the chest is obtained. There is no infiltrate, pleural effusion or pneumo thorax. There is a stable cardiac silhouette. IMPRESSION: No acute pulmonary finding. Electronically signed by: Delmy Solis MD (05/31/2021 9:05 AM) [id number]
[2021-05-31] MEDS ORDERED: KETOROLAC 15 MG/ML VIAL. IVP ONE (09:15)
[2021-05-31] MEDS ORDERED: METOCLOPRAMIDE HCL 10 MG/2 ML VIAL. IVP ONE (09:15)
[2021-05-31] MEDS ORDERED: DEXAMETHASONE SOD PHOS 10 MG/ML VIAL. IVP ONE (09:15)
[2021-05-31 09:16] LABS: CALCIUM 8.4 mg/dL (8.5-10.1); GFR 92.2; POTASSIUM 3.8 mmol/L (3.5-5.1)
--- NOTE | 2021-05-31 09:20 | PHYS DOC ---
Past History Past Medical History: High Cholesterol, Hypertension, Sciatica, Stroke (With residual left-sided deficit) Additional Past Medical Histor: CHRONIC BACK PAIN, NEUROPATHY Past Surgical History: Appendectomy, Other Additional Past Surgical Histo: right shoulder, lumbar spine Smoking: Cigar Alcohol Use: Occasionally Drug Use: None General Adult EDM: Chief Complaint: WEAKNESS/GENERALIZED HPI: HPI: 60 year old male presents via EMS with generalized weakness, dizziness, headache, and left eye pain. The weakness and dizziness started yesterday during the day but was much worse this morning when he woke up. He first noticed the headache and eye pain this morning at 7am when he woke up. The headache is locates over his left yazidism and radiates down the front of his left ear into his jaw. The left eye pain is located around his left orbit and is described as a stabbing 11/10 in intensity. 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 Patient reports headache is similar but more intense than normal. Patient reports he is prescribed hydrocodone for this pain but did not take any this morning. Patient also describes chest pain that feels like he is "being stabbed right in the middle of the chest." Patient also reports history of left shoulder pain. Reports had fallen on it several months ago. Patient had been seen in the emergency department with x-ray imaging obtained which did not note a fracture or dislocation. Patient was working with his PCP in order to obtain an MRI regarding this pain. Review of Systems: Review of Systems: Constitutional: Denies fever or chills Eyes: Denies redness. Reports left eye pain HENT: Denies nasal congestion or epistaxis Respiratory: Denies cough or shortness of breath Cardiovascular: Reports chest pain. Denies palpitations GI: Reports abdominal pain Denies nausea and vomiting : Denies dysuria or hematuria Musculoskeletal: Reports back pain and left shoulder pain Integument: Denies rash or skin lesions Neurologic: Reports headache, generalized weakness worse on the left than the right. Denies sensory changes Complete systems were reviewed and found to be within normal limits, except as documented in this note. Current Medications: Current Meds: Current Medications Medications (Trade) Dose Ordered Sig/Taras Start Time Stop Time Status Last Admin Dose Admin Dexamethasone Sodium Phosphate (Decadron) 10 mg 1X ONCE 05/31/21 09:15 05/31/21 09:16 UNV Ketorolac Tromethamine (Toradol 15mg Vial) 15 mg 1X ONCE 05/31/21 09:15 05/31/21 09:16 UNV Metoclopramide HCl (Reglan Vial) 10 mg 1X ONCE 05/31/21 09:15 05/31/21 09:16 UNV Sodium Chloride 1,000 ml @ 1,000 mls/hr 1X ONCE 05/31/21 09:00 05/31/21 09:59 05/31/21 09:02 1,000 MLS/HR Allergies: Allergies: Allergies Coded Allergies Type Severity Reaction Last Updated Verified No Known Drug Allergies 04/07/21 No Physical Exam: PE: Constitutional: Well developed, well nourished, non-toxic appearance. In mild distress. HENT: Normocephalic, atraumatic, no temporal artery pain on palpation Eyes: Conjunctiva normal, no discharge, photophobia noted to right eye, left sided chronic blindness Neck: Normal range of motion, no tenderness, supple Lungs & Thorax: Some respiratory distress, equal chest rise and fall Abdomen: Soft, Tenderness on palpation of the LUQ, no guarding/rebound tenderness/distention Skin: Warm, dry, no erythema, no rash Extremities: Left glenohumeral tenderness on palpation, no deformity, ROM intact, no edema Neurologic: Alert and oriented X 3, weakness to left arm, sensation diminished on left (baseline), drop foot noted on left (chronic) Psychologic: Affect normal, judgment normal Current Patient Data: Labs: Laboratory Tests Test 05/31/21 08:50 05/31/21 08:53 Glucose (Fingerstick) 105 mg/dL (70-99) H White Blood Count 6.7 x10^3/uL (4.0-11.0) Red Blood Count 4.73 x10^6/uL (4.30-5.70) Hemoglobin 14.0 g/dL (13.0-17.5) Hematocrit 42.7 % (39.0-53.0) Mean Corpuscular Volume 90 fL (79-100) Mean Corpuscular Hemoglobin 30 pg (25-35) Mean Corpuscular Hemoglobin Concent 33 g/dL (31-37) Red Cell Distribution Width 14.1 % (11.5-14.5) Platelet Count 280 x10^3/uL (140-400) Neutrophils (%) (Auto) 54 % (31-73) Lymphocytes (%) (Auto) 33 % (24-48) Monocytes (%) (Auto) 9 % (0-9) Eosinophils (%) (Auto) 3 % (0-3) Basophils (%) (Auto) 1 % (0-3) Neutrophils # (Auto) 3.6 x10^3uL (1.8-7.7) Lymphocytes # (Auto) 2.2 x10^3/uL (1.0-4.8) Monocytes # (Auto) 0.6 x10^3/uL (0.0-1.1) Eosinophils # (Auto) 0.2 x10^3/uL (0.0-0.7) Basophils # (Auto) 0.1 x10^3/uL (0.0-0.2) Sodium Level 143 mmol/L (136-145) Potassium Level 3.8 mmol/L (3.5-5.1) Chloride Level 107 mmol/L (98-107) Carbon Dioxide Level 26 mmol/L (21-32) Anion Gap 10 (6-14) Blood Urea Nitrogen 7 mg/dL (8-26) L Creatinine 1.0 mg/dL (0.7-1.3) Estimated GFR (Cockcroft-Gault) 92.2 BUN/Creatinine Ratio 7 (6-20) Glucose Level 107 mg/dL (70-99) H Calcium Level 8.4 mg/dL (8.5-10.1) L Magnesium Level Pending Total Bilirubin Pending Aspartate Amino Transferase (AST) Pending Alanine Aminotransferase (ALT) Pending Alkaline Phosphatase Pending Creatine Kinase Pending Creatine Kinase MB (Mass) Pending Creatine Kinase MB Relative Index Pending Total Protein Pending Albumin Pending Albumin/Globulin Ratio Pending Vital Signs: Vital Signs Date Time Temp Pulse Resp B/P (MAP) Pulse Ox O2 Delivery O2 Flow Rate FiO2 05/31/21 08:53 97.9 59 16 148/90 (109) 99 Room Air EKG: EKG: @8:52 am, NSR at 60 bpm, No ST elevation, J point elevation in V2 and V3, Inverted T waves in III and avF, QRS 82 ms, QT/QTc 424/428 ms Radiology/Procedures: Radiology/Procedures: PROCEDURE: PORTABLE CHEST 1V EXAM: Chest, single view. HISTORY: Weakness. COMPARISON: 04/07/2021 FINDINGS: A frontal view of the chest is obtained. There is no infiltrate, pleural effusion or pneumothorax. There is a stable cardiac silhouette. IMPRESSION: No acute pulmonary finding. Electronically signed by: Delmy Solis MD (05/31/2021 9:05 AM) [id number] PROCEDURE: CT HEAD WO CONTRAST PQRS Compliance Statement: One or more of the following individualized dose reduction techniques were utilized for this examination: 1. Automated exposure control 2. Adjustment of the mA and/or kV according to patient size 3. Use of iterative reconstruction technique CT head without contrast 05/31/2021 9:05 AM INDICATION: Headache, generalized weakness COMPARISON: CT head 04/07/2021 TECHNIQUE: Multiple axial CT images of the head were obtained from skull base through the vertex without intravenous contrast. FINDINGS: Head: Ventricles, sulci and basal cisterns are prominent compatible with mild to moderate generalized cerebral volume loss. There is a large territory remote ischemic changes involving the posterior right frontal lobe, right parietal lob e, right occipital lobe and posterior right temporal lobe with associated ex vacuo dilatation of the lateral ventricle. There is a remote lacunar infarct involving the left anterior limb internal capsule. There is wallerian degeneration along the right cerebral peduncle. Posterior fossa is normal in appearance. Sella and suprasellar cistern are normal. There is a remote lacunar infarct involving the right caudate head. No hydrocephalus. There is no acute intracranial hemorrhage. There is no mass, mass effect or midline shift. Posterior fossa is normal in appearance. Visualized portions of the orbits are normal. Paranasal sinuses are well aerated. Mastoid air cells are well aerated. Scalp and calvaria are normal. IMPRESSION: No acute intracranial hemorrhage. Large territory remote ischemic changes involving the posterior right frontal, parietal, posterior right temporal and right occipital lobes. There is associated ex vacuo dilatation of the right lateral ventricle. Remote lacunar infarcts involving the right caudate head and left anterior limb internal capsule. Mild to moderate generalized cerebral volume loss. Electronically signed by: Constance De Souza MD (05/31/2021 9:39 AM) [id number] PROCEDURE: SHOULDER 2+V LEFT EXAM: XR SHOULDER_LEFT 2+ VIEWS 05/31/2021 10:50 AM CLINICAL INDICATION: Pain, recent injury. COMPARISON: Left shoulder radiograph 04/07/2021 TECHNIQUE: 3 views of the left shoulder FINDINGS: There is no acute fracture. Alignment is normal. Mild acromiocla vicular joint space narrowing. Glenohumeral joint is maintained. The subacromial space is preserved. IMPRESSION: No acute osseous abnormality. Electronically signed by: Mirtha Timmons MD (05/31/2021 11:15 AM) [id number] Heart Score: C/O Chest Pain: Yes HEART Score for Chest Pain: HEART Score for Chest Pain Response (Comments) Value History Slighlty/Non-Suspicious 0 ECG Normal 0 Age >45 - < 65 1 Risk Factors >3 Risk Factors or Hx CAD 2 Troponin < Normal Limit 0 Total 3 Risk Factors: Risk Factors: DM, Current or recent (<one month) smoker, HTN, HLP, family history of CAD, obesity. Risk Scores: Score 0 - 3: 2.5% MACE over next 6 weeks - Discharge Home Score 4 - 6: 20.3% MACE over next 6 weeks - Admit for Clinical Observation Score 7 - 10: 72.7% MACE over next 6 weeks - Early Invasive Strategies Course & Med Decision Making: Course & Med Decision Making Pertinent Labs and Imaging studies reviewed. (See chart for details) 60 year old male presented with with generalized weakness, left temporal headache, left eye pain, chest pain, and LUQ abdominal pain. Due to generalized weakness and headache (and history of CVA), a noncontrast CT was obtained and showed no acute hemorrhagic events. He was given a headache cocktail to address headache and eye pain with interval improvement. Labs obtained and posted to chart. LFTs and lipase within normal limits. UA without signs of infection. Due to chest pain, a chest x-ray and troponin were acquired and showed no significant abnormalities/elevations. EKG stable. X-ray of left shoulder also obtained without signs of fracture or dislocation. Pain addressed with interval improvement. Patient reports back to his baseline. Patient stable for discharge with outpatient follow-up with PCP/orthopedic surgeon/neurology. Orthopedic surgeon referral provided. Discussed findings and plan with patient, who acknowledges understanding and agreement. Darryl Disclaimer: Darryl Disclaimer: This electronic medical record was generated, in whole or in part, using a voice recognition dictation system. Departure Departure: Impression: Primary Impression: Headache Qualified Codes: R51.9 - Headache, unspecified Additional Impressions: Left shoulder pain Qualified Codes: M25.512 - Pain in left shoulder History of CVA with residual deficit Disposition: 01 HOME / SELF CARE / HOMELESS Condition: STABLE Referrals: LORI WOOTEN MD (PCP) JACOBO PALENCIA II, MD Patient Instructions: Headache, FAQs, Shoulder Pain, [id number] Additional Instructions: Ice area of discomfort 20 minutes on then leave off next 20 minutes. Repeat several times daily for the next 2 days. Take previously prescribed pain medication and muscle relaxers as needed HALLE WARD DO May 31, 2021 09:20
[2021-05-31 09:32] LABS: ALBUMIN 3.5 g/dL (3.4-5.0); MAGNESIUM 2.1 mg/dL (1.8-2.4); TOTAL BILIRUBIN 0.3 mg/dL (0.2-1.0)
--- NOTE | 2021-05-31 09:41 | RAD ---
PQRS Compliance Statement: One or more of the following individualized dose reduction techniques were utilized for this examinat ion: 1. Automated exposure control 2. Adjustment of the mA and/or kV according to patient size 3. Use of iterative reconstruction technique CT head without contrast 05/31/2021 9:05 AM INDICATION: Headache, generalized weakness COMPARISON: CT head 04/07/2021 TECHNIQUE: Multiple axial CT images of the head were obtained from skull base through the vertex with out intravenous contrast. FINDINGS: Head: Ventricles, sulci and basal cisterns are prominent compatible with mild to moderate generalized cereb ral volume loss. There is a large territory remote ischemic changes involving the posterior right fro ntal lobe, right parietal lobe, right occipital lobe and posterior right temporal lobe with associate d ex vacuo dilatation of the lateral ventricle. There is a remote lacunar infarct involving the left anterior limb internal capsule. There is wallerian degeneration along the right cerebral peduncle. Po sterior fossa is normal in appearance. Sella and suprasellar cistern are normal. There is a remote lacunar infarct involving the right caudate head. No hydrocephalus. There is no acu te intracranial hemorrhage. There is no mass, mass effect or midline shift. Posterior fossa is normal in appearance. Visualized portions of the orbits are normal. Paranasal sinuses are well aerated. Mastoid air cells a re well aerated. Scalp and calvaria are normal. IMPRESSION: No acute intracranial hemorrhage. Large territory remote ischemic changes involving the posterior right frontal, parietal, posterior ri ght temporal and right occipital lobes. There is associated ex vacuo dilatation of the right lateral ventricle. Remote lacunar infarcts involving the right caudate head and left anterior limb internal capsule. Mild to moderate generalized cerebral volume loss. Electronically signed by: Constance De Souza MD (05/31/2021 9:39 AM) [id number]
[2021-05-31] MEDS ORDERED: hydrALAZINE 20 MG/ML VIAL. IV ONE (10:00)
[2021-05-31 10:03] LABS: BACTERIA,URINE 0 /HPF (0-FEW); BILIRUBIN,URINE NEG (NEG); CLARITY,URINE CLEAR; COLOR,URINE YELLOW; GLUCOSE,URINE NEG (NEG); NITRITE,URINE NEG (NEG); SQUAMOUS EPITHELIAL CELL,UR FEW /LPF
[2021-05-31] MEDS ORDERED: ASPIRIN 325 MG TABLET PO ONE (10:15)
[2021-05-31] MEDS ORDERED: ASPIRIN CHEWABLE 81 MG TABLET. PO ONE (10:15)
--- NOTE | 2021-05-31 11:00 | EKG ---
[address] [address] Test Date: 2021-05-31 Test Time: 08:52:54 Pat Name: HALLE TADEO Department: Room: Gender: M Yarn Dumper: LESTER : 1960 Requested By: HALLE WARD Order Number: [id number] Reading MD: Ori Sal Measurements Intervals [place] Rate: 60 P: 57 UT: 184 QRS: -13 QRSD: 82 T: -8 QT: 424 QTc: 428 Interpretive Statements SINUS RHYTHM LEFTWARD AXIS MILD NONSPECIFIC ST T WAVE CHANGES Electronically Signed On 06-06-2021 11:11:26 CLOTHING PATTERN PREPARER by Ori Sal
[2021-05-31 11:13] VITALS: BP 174/89
--- NOTE | 2021-05-31 11:17 | RAD ---
EXAM: XR SHOULDER_LEFT 2+ VIEWS 05/31/2021 10:50 AM CLINICAL INDICATION: Pain, recent injury. COMPARISON: Left shoulder radiograph 04/07/2021 TECHNIQUE: 3 views of the left shoulder FINDINGS: There is no acute fracture. Alignment is normal. Mild acromioclavicular joint space narrow ing. Glenohumeral joint is maintained. The subacromial space is preserved. IMPRESSION: No acute osseous abnormality. Electronically signed by: Mirtha Timmons MD (05/31/2021 11:15 AM) [id number]
== END 2021-05-31 11:33 | disposition home or self-care (01) ==
LOC: ER 08:42
DX: R51.9 Headache, unspecified (principal); M25.512 Pain in left shoulder; R53.1 Weakness; R10.12 Left upper quadrant pain; H57.12 Ocular pain, left eye; E78.00 Pure hypercholesterolemia, unspecified; I10 Essential (primary) hypertension; G89.29 Other chronic pain; F17.210 Nicotine dependence, cigarettes, uncomplicated; Z90.89 Acquired absence of other organs
CPT/HCPCS: 36415; 70450; 71045; 73030; 80053; 81001; 82553; 82947; 83605; 83690; 83735; 84484; 85025; 93005; 96361; 96374; 96375; 96376; 99285; J0360; J1100; J1885; J2765; J3010; J7030; 99284

== ENCOUNTER 2021-09-22 13:56 | Observation (INO) | payer OTHER ==
[~2021-09-22] VITALS: Ht 186.7 cm; Wt 86.4 kg
--- NOTE | 2021-09-22 14:06 | PHYS DOC ---
Past History Past Medical History: High Cholesterol, Hypertension, Sciatica, Stroke Additional Past Medical Histor: CHRONIC BACK PAIN, NEUROPATHY Past Surgical History: Appendectomy, Other Additional Past Surgical Histo: right shoulder, lumbar spine Smoking: Cigar Alcohol Use: Occasionally Drug Use: None General Adult HPI: HPI: 61-year-old male past medical history hypertension, hyperlipidemia, CVA (2months ago) with left upper and left lower extremity residual weakness presents via EMS for evaluation due to concern of a stroke. EMS picked patient up at an urgent care where he initially went to be evaluated for his weakness. Patient states he woke up at 0900hrs feeling weak and dizzy. Patient states his new weakness of his right upper and right lower extremity. Patient describes his dizziness as like being on a boat and bobbing up and down in the water. Patients dizziness is associated with a headache. On exam I do not appreciated any facial weakness or slurred speech. 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 Right upper extremity-- states unable to lift arm off bed when specifically asked to move arm but patient seen moving arm and holding in air without drift when nursing put on the blood pressure cuff Right lower extremity-- lifts in air and bends knee but with drift. Left upper extremity- residual weakness from previous cva. Movement with Drift. Left lower extremity.- residual weakness from previous cva. Movement with Drift Review of Systems: Review of Systems: Constitutional: Denies fever or chills Eyes: Denies change in visual acuity HENT: Denies nasal congestion or sore throat Respiratory: Denies cough or shortness of breath Cardiovascular: Denies chest pain or edema GI: Denies abdominal pain, nausea, vomiting, bloody stools or diarrhea : Denies dysuria Musculoskeletal: Denies back pain or joint pain Integument: Denies rash Neurologic: Denies headache, focal weakness or sensory changes Endocrine: Denies polyuria or polydipsia Lymphatic: Denies swollen glands Psychiatric: Denies depression or anxiety Current Medications: Current Meds: Current Medications Medications (Trade) Dose Ordered Sig/Taras Start Time Stop Time Status Last Admin Dose Admin Iohexol (Omnipaque 350 Mg/ml) 100 ml 1X ONCE 09/22/21 14:15 09/22/21 14:16 Allergies: Allergies: Allergies Coded Allergies Type Severity Reaction Last Updated Verified No Known Drug Allergies 04/07/21 No Physical Exam: PE: Constitutional: Well developed, well nourished, no acute distress, non-toxic appearance. [] HENT: Normocephalic, atraumatic, bilateral external ears normal, oropharynx moist, no oral exudates, nose normal. [] Eyes: PERRLA, EOMI, conjunctiva normal, no discharge. [] Neck: Normal range of motion, no tenderness, supple, no stridor. [] Cardiovascular:Heart rate regular rhythm, no murmur [] Lungs & Thorax: Bilateral breath sounds clear to auscultation [] Abdomen: Bowel sounds normal, soft, no tenderness, no masses, no pulsatile ma sses. [] Skin: Warm, dry, no erythema, no rash. [] Back: No tenderness, no CVA tenderness. [] Extremities: No tenderness, no cyanosis, no clubbing, ROM intact, no edema. [] Neurologic: Alert and oriented X 3, , normal sensory function, weakness right upper and right lower extremity, Psychologic: Affect normal, judgement normal, mood normal. 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 No acute process Heart Score: C/O Chest Pain: N/A Risk Factors: Risk Factors: DM, Current or recent (<one month) smoker, HTN, HLP, family history of CAD, obesity. Risk Scores: Score 0 - 3: 2.5% MACE over next 6 weeks - Discharge Home Score 4 - 6: 20.3% MACE over next 6 weeks - Admit for Clinical Observation Score 7 - 10: 72.7% MACE over next 6 weeks - Early Invasive Strategies Course & Med Decision Making: Course & Med Decision Making Pertinent Labs and Imaging studies reviewed. (See chart for details) [] Dragon Disclaimer: Dragon Disclaimer: This electronic medical record was generated, in whole or in part, using a voice recognition dictation system. HPI HPI The patient is a [f_age] [f_sex] who presents with The symptoms started The last known baseline neurologic function time was The patient had new weakness in The patient had altered sensation in The patient had visual changes The patient had impaired speech the patient had impaired swallowing the patient has a decreased ability to stand or walk The patient's baseline level of alertness is alert and oriented Current Medications Current Medications Current Medications Medications (Trade) Dose Ordered Sig/Taras Start Time Stop Time Status Last Admin Dose Admin Acetaminophen (Tylenol) 650 mg PRN Q4HRS PRN 09/22/21 15:30 09/23/21 15:29 Iohexol (Omnipaque 350 Mg/ml) 100 ml 1X ONCE 09/22/21 14:15 09/22/21 14:16 DC 09/22/21 14:14 100 ML Ondansetron HCl (Zofran) 4 mg PRN Q4HRS PRN 09/22/21 15:30 09/23/21 15:29 Allergies Allergies Allergies Coded Allergies Type Severity Reaction Last Updated Verified No Known Drug Allergies 04/07/21 No Physical Exam Physical Exam Constitutional: Well developed, well nourished, no acute distress, non-toxic appearance. [] HENT: Normocephalic, atraumatic, bilateral external ears normal, oropharynx moist, no oral exudates, nose normal. [] Eyes: PERRLA, EOMI, conjunctiva normal, no discharge. [] Neck: Normal range of motion, no tenderness, supple, no stridor. [] Cardiovascular:Heart rate regular rhythm, no murmur [] Lungs & Thorax: Bilateral breath sounds clear to auscultation [] Abdomen: Bowel sounds normal, soft, no tenderness, no masses, no pulsatile masses. [] Skin: Warm, dry, no erythema, no rash. [] Back: No tenderness, no CVA tenderness. [] Extremities: No tenderness, no cyanosis, no clubbing, ROM intact, no edema. [] Neurologic: Alert and oriented X 3, normal motor function, normal sensory function, no focal deficits noted. [] Psychologic: Affect normal, judgement normal, mood normal. [] Current Patient Data Current Patient Data Laboratory Tests Test 09/22/21 14:07 09/22/21 15:26 White Blood Count 8.1 x10^3/uL (4.0-11.0) Red Blood Count 4.56 x10^6/uL (4.30-5.70) Hemoglobin 13.5 g/dL (13.0-17.5) Hematocrit 40.5 % (39.0-53.0) Mean Corpuscular Volume 89 fL (79-100) Mean Corpuscular Hemoglobin 30 pg (25-35) Mean Corpuscular Hemoglobin Concent 33 g/dL (31-37) Red Cell Distribution Width 15.5 % (11.5-14.5) H Platelet Count 340 x10^3/uL (140-400) Neutrophils (%) (Auto) 61 % (31-73) Lymphocytes (%) (Auto) 26 % (24-48) Monocytes (%) (Auto) 7 % (0-9) Eosinophils (%) (Auto) 2 % (0-3) Basophils (%) (Auto) 4 % (0-3) H Neutrophils # (Auto) 5.0 x10^3uL (1.8-7.7) Lymphocytes # (Auto) 2.1 x10^3/uL (1.0-4.8) Monocytes # (Auto) 0.6 x10^3/uL (0.0-1.1) Eosinophils # (Auto) 0.1 x10^3/uL (0.0-0.7) Basophils # (Auto) 0.3 x10^3/uL (0.0-0.2) H Prothrombin Time 10.4 SEC (9.4-11.4) Prothromb Time International Ratio 1.0 (0.9-1.1) Activated Partial Thromboplast Time 25 SEC (23-33) Sodium Level 138 mmol/L (136-145) Potassium Level 4.1 mmol/L (3.5-5.1) Chloride Level 103 mmol/L (98-107) Carbon Dioxide Level 26 mmol/L (21-32) Anion Gap 9 (6-14) Blood Urea Nitrogen 18 mg/dL (8-26) Creatinine 1.1 mg/dL (0.7-1.3) Estimated GFR (Cockcroft-Gault) 82.3 BUN/Creatinine Ratio 16 (6-20) Glucose Level 113 mg/dL (70-99) H Calcium Level 9.3 mg/dL (8.5-10.1) Total Bilirubin 0.5 mg/dL (0.2-1.0) Aspartate Amino Transf (AST/SGOT) 11 U/L (15-37) L Alanine Aminotransferase (ALT/SGPT) 18 U/L (16-63) Alkaline Phosphatase 70 U/L (46-116) Troponin I High Sensitivity 7 ng/L (4-75) Total Protein 7.0 g/dL (6.4-8.2) Albumin 3.7 g/dL (3.4-5.0) Albumin/Globulin Ratio 1.1 (1.0-1.7) SARS-CoV-2 Antigen (Rapid) Negative (NEGATIVE) Active Scripts Medications Dose Route/Sig Max Daily Dose Days Date Category Hydrocodone-Apap 5-325 (Hydrocodone Bit/Acetaminophen) 1 Each Tablet 1 Tab PO PRN Q6HRS PRN 5 12/30/20 Rx Naproxen 500 Mg Tablet 1 Tab PO BID 20 12/30/20 Rx Ondansetron Odt (Ondansetron) 4 Mg Tab.rapdis 1 Tab PO PRN Q6-8HRS PRN 12/13/20 Rx Cyclobenzaprine Hcl 5 Mg Tablet 1-2 Tab PO PRN TID PRN 5 11/21/20 Rx Gabapentin (Gabapentin) 300 Mg Capsule 300 Mg PO TID 10 11/21/20 Rx Ibuprofen 800 Mg Tablet 1 Tab PO TID PRN 11/21/20 Rx Prednisone 10 Mg Tablet 60 Mg PO DAILY 3 11/12/20 Rx Hydrocodone-Acetamin 5-325 mg (Hydrocodone/Acetaminophen) 1 Each Tablet 1-2 Each PO Q6H PRN 11/12/20 Rx [place] 5-325 Tablet (Hydrocodone Bit/Acetaminophen) 1 Each Tablet 1 Tab PO TID 7 06/09/20 Rx Hydrocodone-Apap 7.5-325/15 Soln (Hydrocodone Bit/Acetaminophen) 15 Ml Solution 10 Ml PO PRN Q6HRS PRN 06/01/20 Rx Clindamycin Palmitate Hcl 75 Mg/5 Ml Soln.recon 20 Ml PO TID 7 06/01/20 Rx [place] 5-325 Tablet (Hydrocodone Bit/Acetaminophen) 1 Each Tablet 1 Tab PO TID 05/28/20 Rx Cyclobenzaprine Hcl 5 Mg Tablet 1 Tab PO TID 05/28/20 Rx Naprosyn (Naproxen) 500 Mg Tablet 1 Tab PO BID 15 05/28/20 Rx [place] 5-325 Tablet (Hydrocodone Bit/Acetaminophen) 1 Each Tablet 1 Tab PO TID 04/01/20 Rx Cyclobenzaprine Hcl 10 Mg Tablet 1 Tab PO TID 04/01/20 Rx Ibuprofen 800 Mg Tablet 1 Tab PO TID 04/01/20 Rx Bactrim Ds Tablet (Sulfamethoxazole/Trimethoprim) 1 Each Tablet 1 Tab PO BID 10 12/29/19 Rx [place] 5-325 Tablet (Hydrocodone Bit/Acetaminophen) 1 Each Tablet 1-2 Tab PO Q4-6HRS 02/25/17 Rx Lyrica (Pregabalin) 50 Mg Capsule 1 Cap PO BID 11/08/16 Reported Hydrocodone-Apap 7.5-325 (Hydrocodone Bit/Acetaminophen) 1 Each Tablet 1 Tab PO PRN Q4HRS PRN 11/08/16 Reported Atorvastatin Calcium 20 Mg Tablet 20 Mg PO QHS 11/07/16 Reported Lisinopril 20 Mg Tablet 1 Tab PO DAILY 11/07/16 Reported Amlodipine Besylate 10 Mg Tablet 10 Mg PO DAILY 01/01/21 Reported Hydrocodone-Apap 10-325 (Hydrocodone Bit/Acetaminophen) 1 Tab Tablet 1 Tab PO PRN Q6HRS PRN 01/01/21 Reported Aspirin 81 Mg Tab.chew 1 Tab PO DAILY 04/22/20 Reported Cyclobenzaprine Hcl 10 Mg Tablet 1 Tab PO DAILY 04/22/20 Reported Atorvastatin Calcium 40 Mg Tablet 20 Mg PO HS 11/09/16 Reported Vital Signs Date Time Temp Pulse Resp B/P (MAP) Pulse Ox O2 Delivery O2 Flow Rate FiO2 09/22/21 13:58 98.0 65 16 145/70 (95) 99 Room Air Vital Signs Date Time Temp Pulse Resp B/P (MAP) Pulse Ox O2 Delivery O2 Flow Rate FiO2 09/22/21 17:00 62 16 128/67 (87) 98 09/22/21 16:39 16 95 09/22/21 16:30 59 16 130/60 (83) 99 Room Air 09/22/21 16:00 87 16 149/61 (90) 95 Room Air 09/22/21 15:30 87 16 135/57 (83) 94 09/22/21 15:00 92 16 134/67 (89) 96 Room Air 09/22/21 13:58 98.0 65 16 145/70 (95) 99 Room Air Vital Signs Date Time Temp Pulse Resp B/P (MAP) Pulse Ox O2 Delivery O2 Flow Rate FiO2 09/22/21 17:00 62 16 128/67 (87) 98 09/22/21 16:30 Room Air 09/22/21 13:58 98.0 EKG EKG [] Performed at Rate Normal sinus rhythm No ST elevation No ST depression No acute MD Radiology/Procedures Radiology/Procedures [] Course & Med Decision Making Course & Med Decision Making Pertinent Labs and Imaging studies reviewed. (See chart for details) []Patients Care and treatment plan provided by ER PA. Stallworth was available for consult. Patient's chart reviewed. TPA Screening Tool TPA Screening Tool Screening tool completed (time): Last known normal time: Allergies: [] Criteria for treating patient with IV r-TPA: For symptom onset of 3 hours or less answer questions 1-9: If any answer 1-9 is YES, the patient is NOT Candidate for IV r-TPA. 1. Evidence of intracranial hemorrhage on pretreatment CT. 2. Clinical presentation suggestive of subarachnoid hemorrhage, even with normal CT 3. Known arteriovenous malformation or aneurysm. 4. Recent (within 3 months), intracranial surgery, serious head trauma, or previous stroke. 5. History of intracranial hemorrhage. 6. On repeated measurements, systolic blood pressure >185 mmHg or diastolic blood pressure >110 mmHg at the time treatment is to begin, and pt requires aggressive treatment to reduce blood pressure to within these limits (see BP Management section of TPA orders). 7. Known bleeding diathesis, including but not limited to: A) Platelet count less than 100,000mm3 B) Current or recent use of oral anticoagulants (e.g. Warfarin Sodium) with an INR greater than 1.7 C) Administration of heparin within 48 hours preceding the onset of stroke and an elevated PTT 8. Evidence of active bleeding or acute trauma. 9. Patient or family refuse. Warning/Consideration: If any answer 10-18 is YES, evaluate increased risk versu s benefit. 10. Minor neurological deficit or rapidly improving symptoms. 11. Patient was observed to have seizure at the same time of onset of stroke symptoms. 12. Abnormal blood glucose (less than 50 or greater than 400 mg/dL). 13. Patient has had major surgery or serious trauma, excluding head trauma, in previous 14 days. 14. History of gastrointestinal or urinary track hemorrhage within 21 days. 15. Post MD or pericarditis. 16. Recent arterial puncture at a noncompressible site. 17. Recent lumbar puncture. 18. . For symptoms greater than 3 hours but less than 4.5 hours duration: Warning/Consideration: If any answer 19-22 is YES, evaluate increased risk versus benefit. 19. Age greater than 80 years. 20. Current use of oral anticoagulants (e.g.Warfarin Sodium) regardless of protime. 21. Severe stroke (Baseline NIHSS Stroke Scale greater than 25). 22. Patient has both diabetes and history of stroke Initiate TPA (Alteplase)? Critical Care Time Critical Care Time Critical care time was [] minutes exclusive of procedures. Final Impression Final Impression [] Departure Departure: Impression: Primary Impression: Weakness Disposition: ADMITTED INPATIENT Condition: STABLE Referrals: LORI WOOTEN MD (PCP) HPI HPI The patient is a [f_age] [f_sex] who presents with The symptoms started The last known baseline neurologic function time was The patient had new weakness in The patient had altered sensation in The patient had visual changes The patient had impaired speech the patient had impaired swallowing the patient has a decreased ability to stand or walk The patient's baseline level of alertness is alert and oriented Current Medications Current Medications Current Medications Medications (Trade) Dose Ordered Sig/Taras Start Time Stop Time Status Last Admin Dose Admin Acetaminophen (Tylenol) 650 mg PRN Q4HRS PRN 09/22/21 15:30 09/23/21 15:29 Iohexol (Omnipaque 350 Mg/ml) 100 ml 1X ONCE 09/22/21 14:15 09/22/21 14:16 DC 09/22/21 14:14 100 ML Ondansetron HCl (Zofran) 4 mg PRN Q4HRS PRN 09/22/21 15:30 09/23/21 15:29 Allergies Allergies Allergies Coded Allergies Type Severity Reaction Last Updated Verified No Known Drug Allergies 04/07/21 No Physical Exam Physical Exam Constitutional: Well developed, well nourished, no acute distress, non-toxic appearance. [] HENT: Normocephalic, atraumatic, bilateral external ears normal, oropharynx moist, no oral exudates, nose normal. [] Eyes: PERRLA, EOMI, conjunctiva normal, no discharge. [] Neck: Normal range of motion, no tenderness, supple, no stridor. [] Cardiovascular:Heart rate regular rhythm, no murmur [] Lungs & Thorax: Bilateral breath sounds clear to auscultation [] Abdomen: Bowel sounds normal, soft, no tenderness, no masses, no pulsatile masses. [] Skin: Warm, dry, no erythema, no rash. [] Back: No tenderness, no CVA tenderness. [] Extremities: No tenderness, no cyanosis, no clubbing, ROM intact, no edema. [] Neurologic: Alert and oriented X 3, normal motor function, normal sensory function, no focal deficits noted. [] Psychologic: Affect normal, judgement normal, mood normal. [] Current Patient Data Current Patient Data Laboratory Tests Test 09/22/21 14:07 09/22/21 15:26 White Blood Count 8.1 x10^3/uL (4.0-11.0) Red Blood Count 4.56 x10^6/uL (4.30-5.70) Hemoglobin 13.5 g/dL (13.0-17.5) Hematocrit 40.5 % (39.0-53.0) Mean Corpuscular Volume 89 fL (79-100) Mean Corpuscular Hemoglobin 30 pg (25-35) Mean Corpuscular Hemoglobin Concent 33 g/dL (31-37) Red Cell Distribution Width 15.5 % (11.5-14.5) H Platelet Count 340 x10^3/uL (140-400) Neutrophils (%) (Auto) 61 % (31-73) Lymphocytes (%) (Auto) 26 % (24-48) Monocytes (%) (Auto) 7 % (0-9) Eosinophils (%) (Auto) 2 % (0-3) Basophils (%) (Auto) 4 % (0-3) H Neutrophils # (Auto) 5.0 x10^3uL (1.8-7.7) Lymphocytes # (Auto) 2.1 x10^3/uL (1.0-4.8) Monocytes # (Auto) 0.6 x10^3/uL (0.0-1.1) Eosinophils # (Auto) 0.1 x10^3/uL (0.0-0.7) Basophils # (Auto) 0.3 x10^3/uL (0.0-0.2) H Prothrombin Time 10.4 SEC (9.4-11.4) Prothromb Time International Ratio 1.0 (0.9-1.1) Activated Partial Thromboplast Time 25 SEC (23-33) Sodium Level 138 mmol/L (136-145) Potassium Level 4.1 mmol/L (3.5-5.1) Chloride Level 103 mmol/L (98-107) Carbon Dioxide Level 26 mmol/L (21-32) Anion Gap 9 (6-14) Blood Urea Nitrogen 18 mg/dL (8-26) Creatinine 1.1 mg/dL (0.7-1.3) Estimated GFR (Cockcroft-Gault) 82.3 BUN/Creatinine Ratio 16 (6-20) Glucose Level 113 mg/dL (70-99) H Calcium Level 9.3 mg/dL (8.5-10.1) Total Bilirubin 0.5 mg/dL (0.2-1.0) Aspartate Amino Transf (AST/SGOT) 11 U/L (15-37) L Alanine Aminotransferase (ALT/SGPT) 18 U/L (16-63) Alkaline Phosphatase 70 U/L (46-116) Troponin I High Sensitivity 7 ng/L (4-75) Total Protein 7.0 g/dL (6.4-8.2) Albumin 3.7 g/dL (3.4-5.0) Albumin/Globulin Ratio 1.1 (1.0-1.7) SARS-CoV-2 Antigen (Rapid) Negative (NEGATIVE) Active Scripts Medications Dose Route/Sig Max Daily Dose Days Date Category Hydrocodone-Apap 5-325 (Hydrocodone Bit/Acetaminophen) 1 Each Tablet 1 Tab PO PRN Q6HRS PRN 5 12/30/20 Rx Naproxen 500 Mg Tablet 1 Tab PO BID 20 12/30/20 Rx Ondansetron Odt (Ondansetron) 4 Mg Tab.rapdis 1 Tab PO PRN Q6-8HRS PRN 12/13/20 Rx Cyclobenzaprine Hcl 5 Mg Tablet 1-2 Tab PO PRN TID PRN 5 11/21/20 Rx Gabapentin (Gabapentin) 300 Mg Capsule 300 Mg PO TID 10 11/21/20 Rx Ibuprofen 800 Mg Tablet 1 Tab PO TID PRN 11/21/20 Rx Prednisone 10 Mg Tablet 60 Mg PO DAILY 3 11/12/20 Rx Hydrocodone-Acetamin 5-325 mg (Hydrocodone/Acetaminophen) 1 Each Tablet 1-2 Each PO Q6H PRN 11/12/20 Rx [place] 5-325 Tablet (Hydrocodone Bit/Acetaminophen) 1 Each Tablet 1 Tab PO TID 7 06/09/20 Rx Hydrocodone-Apap 7.5-325/15 Soln (Hydrocodone Bit/Acetaminophen) 15 Ml Solution 10 Ml PO PRN Q6HRS PRN 06/01/20 Rx Clindamycin Palmitate Hcl 75 Mg/5 Ml Soln.recon 20 Ml PO TID 7 06/01/20 Rx [place] 5-325 Tablet (Hydrocodone Bit/Acetaminophen) 1 Each Tablet 1 Tab PO TID 05/28/20 Rx Cyclobenzaprine Hcl 5 Mg Tablet 1 Tab PO TID 05/28/20 Rx Naprosyn (Naproxen) 500 Mg Tablet 1 Tab PO BID 15 05/28/20 Rx [place] 5-325 Tablet (Hydrocodone Bit/Acetaminophen) 1 Each Tablet 1 Tab PO TID 04/01/20 Rx Cyclobenzaprine Hcl 10 Mg Tablet 1 Tab PO TID 04/01/20 Rx Ibuprofen 800 Mg Tablet 1 Tab PO TID 04/01/20 Rx Bactrim Ds Tablet (Sulfamethoxazole/Trimethoprim) 1 Each Tablet 1 Tab PO BID 10 12/29/19 Rx [place] 5-325 Tablet (Hydrocodone Bit/Acetaminophen) 1 Each Tablet 1-2 Tab PO Q4-6HRS 02/25/17 Rx Lyrica (Pregabalin) 50 Mg Capsule 1 Cap PO BID 11/08/16 Reported Hydrocodone-Apap 7.5-325 (Hydrocodone Bit/Acetaminophen) 1 Each Tablet 1 Tab PO PRN Q4HRS PRN 11/08/16 Reported Atorvastatin Calcium 20 Mg Tablet 20 Mg PO QHS 11/07/16 Reported Lisinopril 20 Mg Tablet 1 Tab PO DAILY 11/07/16 Reported Amlodipine Besylate 10 Mg Tablet 10 Mg PO DAILY 01/01/21 Reported Hydrocodone-Apap 10-325 (Hydrocodone Bit/Acetaminophen) 1 Tab Tablet 1 Tab PO PRN Q6HRS PRN 01/01/21 Reported Aspirin 81 Mg Tab.chew 1 Tab PO DAILY 04/22/20 Reported Cyclobenzaprine Hcl 10 Mg Tablet 1 Tab PO DAILY 04/22/20 Reported Atorvastatin Calcium 40 Mg Tablet 20 Mg PO HS 11/09/16 Reported Vital Signs Date Time Temp Pulse Resp B/P (MAP) Pulse Ox O2 Delivery O2 Flow Rate FiO2 09/22/21 13:58 98.0 65 16 145/70 (95) 99 Room Air Vital Signs Date Time Temp Pulse Resp B/P (MAP) Pulse Ox O2 Delivery O2 Flow Rate FiO2 09/22/21 17:00 62 16 128/67 (87) 98 09/22/21 16:39 16 95 09/22/21 16:30 59 16 130/60 (83) 99 Room Air 09/22/21 16:00 87 16 149/61 (90) 95 Room Air 09/22/21 15:30 87 16 135/57 (83) 94 09/22/21 15:00 92 16 134/67 (89) 96 Room Air 09/22/21 13:58 98.0 65 16 145/70 (95) 99 Room Air Vital Signs Date Time Temp Pulse Resp B/P (MAP) Pulse Ox O2 Delivery O2 Flow Rate FiO2 09/22/21 17:00 62 16 128/67 (87) 98 09/22/21 16:30 Room Air 09/22/21 13:58 98.0 EKG EKG [] Radiology/Procedures Radiology/Procedures [] Course & Med Decision Making Course & Med Decision Making Pertinent Labs and Imaging studies reviewed. (See chart for details) [] TPA Screening Tool TPA Screening Tool Screening tool completed (time): Last known normal time: Allergies: [] Criteria for treating patient with IV r-TPA: For symptom onset of 3 hours or less answer questions 1-9: If any answer 1-9 is YES, the patient is NOT Candidate for IV r-TPA. 1. Evidence of intracranial hemorrhage on pretreatment CT. 2. Clinical presentation suggestive of subarachnoid hemorrhage, even with normal CT 3. Known arteriovenous malformation or aneurysm. 4. Recent (within 3 months), intracranial surgery, serious head trauma, or previous stroke. 5. History of intracranial hemorrhage. 6. On repeated measurements, systolic blood pressure >185 mmHg or diastolic blood pressure >110 mmHg at the time treatment is to begin, and pt requires aggressive treatment to reduce blood pressure to within these limits (see BP Management section of TPA orders). 7. Known bleeding diathesis, including but not limited to: A) Platelet count less than 100,000mm3 B) Current or recent use of oral anticoagulants (e.g. Warfarin Sodium) with an INR greater than 1.7 C) Administration of heparin within 48 hours preceding the onset of stroke and an elevated PTT 8. Evidence of active bleeding or acute trauma. 9. Patient or family refuse. Warning/Consideration: If any answer 10-18 is YES, evaluate increased risk versus benefit. 10. Minor neurological deficit or rapidly improving symptoms. 11. Patient was observed to have seizure at the same time of onset of stroke symptoms. 12. Abnormal blood glucose (less than 50 or greater than 400 mg/dL). 13. Patient has had major surgery or serious trauma, excluding head trauma, in previous 14 days. 14. History of gastrointestinal or urinary track hemorrhage within 21 days. 15. Post MD or pericarditis. 16. Recent arterial puncture at a noncompressible site. 17. Recent lumbar puncture. 18. . For symptoms greater than 3 hours but less than 4.5 hours duration: Warning/Consideration: If any answer 19-22 is YES, evaluate increased risk versus benefit. 19. Age greater than 80 years. 20. Current use of oral anticoagulants (e.g.Warfarin Sodium) regardless of protime. 21. Severe stroke (Baseline NIHSS Stroke Scale greater than 25). 22. Patient has both diabetes and history of stroke Initiate TPA (Alteplase)? Critical Care Time Critical Care Time Critical care time was [] minutes exclusive of procedures. Final Impression Final Impression [] Stroke HPI HPI The patient is a [f_age] [f_sex] who presents with The symptoms started The last known baseline neurologic function time was The patient had new weakness in The patient had altered sensation in The patient had visual changes The patient had impaired speech the patient had impaired swallowing the patient has a decreased ability to stand or walk The patient's baseline level of alertness is alert and oriented Current Medications Current Medications Current Medications Medications (Trade) Dose Ordered Sig/Taras Start Time Stop Time Status Last Admin Dose Admin Acetaminophen (Tylenol) 650 mg PRN Q4HRS PRN 09/22/21 15:30 09/23/21 15:29 Iohexol (Omnipaque 350 Mg/ml) 100 ml 1X ONCE 09/22/21 14:15 09/22/21 14:16 DC 09/22/21 14:14 100 ML Ondansetron HCl (Zofran) 4 mg PRN Q4HRS PRN 09/22/21 15:30 09/23/21 15:29 Allergies Allergies Allergies Coded Allergies Type Severity Reaction Last Updated Verified No Known Drug Allergies 04/07/21 No Physical Exam Physical Exam Constitutional: Well developed, well nourished, no acute distress, non-toxic appearance. [] HENT: Normocephalic, atraumatic, bilateral external ears normal, oropharynx moist, no oral exudates, nose normal. [] Eyes: PERRLA, EOMI, conjunctiva normal, no discharge. [] Neck: Normal range of motion, no tenderness, supple, no stridor. [] Cardiovascular:Heart rate regular rhythm, no murmur [] Lungs & Thorax: Bilateral breath sounds clear to auscultation [] Abdomen: Bowel sounds normal, soft, no tenderness, no masses, no pulsatile masses. [] Skin: Warm, dry, no erythema, no rash. [] Back: No tenderness, no CVA tenderness. [] Extremities: No tenderness, no cyanosis, no clubbing, ROM intact, no edema. [] Neurologic: Alert and oriented X 3, normal motor function, normal sensory function, no focal deficits noted. [] Psychologic: Affect normal, judgement normal, mood normal. [] Current Patient Data Current Patient Data Laboratory Tests Test 09/22/21 14:07 09/22/21 15:26 White Blood Count 8.1 x10^3/uL (4.0-11.0) Red Blood Count 4.56 x10^6/uL (4.30-5.70) Hemoglobin 13.5 g/dL (13.0-17.5) Hematocrit 40.5 % (39.0-53.0) Mean Corpuscular Volume 89 fL (79-100) Mean Corpuscular Hemoglobin 30 pg (25-35) Mean Corpuscular Hemoglobin Concent 33 g/dL (31-37) Red Cell Distribution Width 15.5 % (11.5-14.5) H Platelet Count 340 x10^3/uL (140-400) Neutrophils (%) (Auto) 61 % (31-73) Lymphocytes (%) (Auto) 26 % (24-48) Monocytes (%) (Auto) 7 % (0-9) Eosinophils (%) (Auto) 2 % (0-3) Basophils (%) (Auto) 4 % (0-3) H Neutrophils # (Auto) 5.0 x10^3uL (1.8-7.7) Lymphocytes # (Auto) 2.1 x10^3/uL (1.0-4.8) Monocytes # (Auto) 0.6 x10^3/uL (0.0-1.1) Eosinophils # (Auto) 0.1 x10^3/uL (0.0-0.7) Basophils # (Auto) 0.3 x10^3/uL (0.0-0.2) H Prothrombin Time 10.4 SEC (9.4-11.4) Prothromb Time International Ratio 1.0 (0.9-1.1) Activated Partial Thromboplast Time 25 SEC (23-33) Sodium Level 138 mmol/L (136-145) Potassium Level 4.1 mmol/L (3.5-5.1) Chloride Level 103 mmol/L (98-107) Carbon Dioxide Level 26 mmol/L (21-32) Anion Gap 9 (6-14) Blood Urea Nitrogen 18 mg/dL (8-26) Creatinine 1.1 mg/dL (0.7-1.3) Estimated GFR (Cockcroft-Gault) 82.3 BUN/Creatinine Ratio 16 (6-20) Glucose Level 113 mg/dL (70-99) H Calcium Level 9.3 mg/dL (8.5-10.1) Total Bilirubin 0.5 mg/dL (0.2-1.0) Aspartate Amino Transf (AST/SGOT) 11 U/L (15-37) L Alanine Aminotransferase (ALT/SGPT) 18 U/L (16-63) Alkaline Phosphatase 70 U/L (46-116) Troponin I High Sensitivity 7 ng/L (4-75) Total Protein 7.0 g/dL (6.4-8.2) Albumin 3.7 g/dL (3.4-5.0) Albumin/Globulin Ratio 1.1 (1.0-1.7) SARS-CoV-2 Antigen (Rapid) Negative (NEGATIVE) Active Scripts Medications Dose Route/Sig Max Daily Dose Days Date Category Hydrocodone-Apap 5-325 (Hydrocodone Bit/Acetaminophen) 1 Each Tablet 1 Tab PO PRN Q6HRS PRN 5 12/30/20 Rx Naproxen 500 Mg Tablet 1 Tab PO BID 20 12/30/20 Rx Ondansetron Odt (Ondansetron) 4 Mg Tab.rapdis 1 Tab PO PRN Q6-8HRS PRN 12/13/20 Rx Cyclobenzaprine Hcl 5 Mg Tablet 1-2 Tab PO PRN TID PRN 5 11/21/20 Rx Gabapentin (Gabapentin) 300 Mg Capsule 300 Mg PO TID 10 11/21/20 Rx Ibuprofen 800 Mg Tablet 1 Tab PO TID PRN 11/21/20 Rx Prednisone 10 Mg Tablet 60 Mg PO DAILY 3 11/12/20 Rx Hydrocodone-Acetamin 5-325 mg (Hydrocodone/Acetaminophen) 1 Each Tablet 1-2 Each PO Q6H PRN 11/12/20 Rx [place] 5-325 Tablet (Hydrocodone Bit/Acetaminophen) 1 Each Tablet 1 Tab PO TID 7 06/09/20 Rx Hydrocodone-Apap 7.5-325/15 Soln (Hydrocodone Bit/Acetaminophen) 15 Ml Solution 10 Ml PO PRN Q6HRS PRN 06/01/20 Rx Clindamycin Palmitate Hcl 75 Mg/5 Ml Soln.recon 20 Ml PO TID 7 06/01/20 Rx [place] 5-325 Tablet (Hydrocodone Bit/Acetaminophen) 1 Each Tablet 1 Tab PO TID 05/28/20 Rx Cyclobenzaprine Hcl 5 Mg Tablet 1 Tab PO TID 05/28/20 Rx Naprosyn (Naproxen) 500 Mg Tablet 1 Tab PO BID 15 05/28/20 Rx [place] 5-325 Tablet (Hydrocodone Bit/Acetaminophen) 1 Each Tablet 1 Tab PO TID 04/01/20 Rx Cyclobenzaprine Hcl 10 Mg Tablet 1 Tab PO TID 04/01/20 Rx Ibuprofen 800 Mg Tablet 1 Tab PO TID 04/01/20 Rx Bactrim Ds Tablet (Sulfamethoxazole/Trimethoprim) 1 Each Tablet 1 Tab PO BID 10 12/29/19 Rx [place] 5-325 Tablet (Hydrocodone Bit/Acetaminophen) 1 Each Tablet 1-2 Tab PO Q4-6HRS 02/25/17 Rx Lyrica (Pregabalin) 50 Mg Capsule 1 Cap PO BID 11/08/16 Reported Hydrocodone-Apap 7.5-325 (Hydrocodone Bit/Acetaminophen) 1 Each Tablet 1 Tab PO PRN Q4HRS PRN 11/08/16 Reported Atorvastatin Calcium 20 Mg Tablet 20 Mg PO QHS 11/07/16 Reported Lisinopril 20 Mg Tablet 1 Tab PO DAILY 11/07/16 Reported Amlodipine Besylate 10 Mg Tablet 10 Mg PO DAILY 01/01/21 Reported Hydrocodone-Apap 10-325 (Hydrocodone Bit/Acetaminophen) 1 Tab Tablet 1 Tab PO PRN Q6HRS PRN 01/01/21 Reported Aspirin 81 Mg Tab.chew 1 Tab PO DAILY 04/22/20 Reported Cyclobenzaprine Hcl 10 Mg Tablet 1 Tab PO DAILY 04/22/20 Reported Atorvastatin Calcium 40 Mg Tablet 20 Mg PO HS 11/09/16 Reported Vital Signs Date Time Temp Pulse Resp B/P (MAP) Pulse Ox O2 Delivery O2 Flow Rate FiO2 09/22/21 13:58 98.0 65 16 145/70 (95) 99 Room Air Vital Signs Date Time Temp Pulse Resp B/P (MAP) Pulse Ox O2 Delivery O2 Flow Rate FiO2 09/22/21 17:00 62 16 128/67 (87) 98 09/22/21 16:39 16 95 09/22/21 16:30 59 16 130/60 (83) 99 Room Air 09/22/21 16:00 87 16 149/61 (90) 95 Room Air 09/22/21 15:30 87 16 135/57 (83) 94 09/22/21 15:00 92 16 134/67 (89) 96 Room Air 09/22/21 13:58 98.0 65 16 145/70 (95) 99 Room Air Vital Signs Date Time Temp Pulse Resp B/P (MAP) Pulse Ox O2 Delivery O2 Flow Rate FiO2 09/22/21 17:00 62 16 128/67 (87) 98 09/22/21 16:30 Room Air 09/22/21 13:58 98.0 EKG EKG [] Radiology/Procedures Radiology/Procedures []Discussed CT imaging with radiology- no actue process. Course & Med Decision Making Course & Med Decision Making Pertinent Labs and Imaging studies reviewed. (See chart for details) [] TPA Screening Tool TPA Screening Tool Screening tool completed (time): Last known normal time: prior to bed-- woke up with symptoms Allergies: [] Criteria for treating patient with IV r-TPA: For symptom onset of 3 hours or less answer questions 1-9: If any answer 1-9 is YES, the patient is NOT Candidate for IV r-TPA. 1. Evidence of intracranial hemorrhage on pretreatment CT. 2. Clinical presentation suggestive of subarachnoid hemorrhage, even with normal CT 3. Known arteriovenous malformation or aneurysm. 4. Recent (within 3 months), intracranial surgery, serious head trauma, or previous stroke. 5. History of intracranial hemorrhage. 6. On repeated measurements, systolic blood pressure >185 mmHg or diastolic blood pressure >110 mmHg at the time treatment is to begin, and pt requires aggressive treatment to reduce blood pressure to within these limits (see BP Management section of TPA orders). 7. Known bleeding diathesis, including but not limited to: A) Platelet count less than 100,000mm3 B) Current or recent use of oral anticoagulants (e.g. Warfarin Sodium) with an INR greater than 1.7 C) Administration of heparin within 48 hours preceding the onset of stroke and an elevated PTT 8. Evidence of active bleeding or acute trauma. 9. Patient or family refuse. Warning/Consideration: If any answer 10-18 is YES, evaluate increased risk versus benefit. 10. Minor neurological deficit or rapidly improving symptoms. 11. Patient was observed to have seizure at the same time of onset of stroke symptoms. 12. Abnormal blood glucose (less than 50 or greater than 400 mg/dL). 13. Patient has had major surgery or serious trauma, excluding head trauma, in previous 14 days. 14. History of gastrointestinal or urinary track hemorrhage within 21 days. 15. Post MD or pericarditis. 16. Recent arterial puncture at a noncompressible site. 17. Recent lumbar puncture. 18. . For symptoms greater than 3 hours but less than 4.5 hours duration: Warning/Consideration: If any answer 19-22 is YES, evaluate increased risk versus benefit. 19. Age greater than 80 years. 20. Current use of oral anticoagulants (e.g.Warfarin Sodium) regardless of protime. 21. Severe stroke (Baseline NIHSS Stroke Scale greater than 25). 22. Patient has both diabetes and history of stroke Initiate TPA (Alteplase)? NO - patient woke up with symptoms Critical Care Time Critical Care Time Critical care time was [] minutes exclusive of procedures. Final Impression Final Impression [] NIHSS - ED NIH Stroke Scale: NIH Stroke Scale Response (Comments) Value Level of Consciousness: 0 Alert/Responsive 0 LOC Questions: 0 Answers both correctly 0 Visual: 0 No visual loss 0 Facial Palsy: 0 Normal, symmetrical 0 Motor - Left Arm 2 Some effort (residual weakness from pr evoius CVA) 2 Motor - Right Arm 2 Some effort 2 Motor - Left Leg 2 Some effort (residual weakness from pr evoius CVA) 2 Motor: Right Leg 2 Some effort 2 Sensory: 0 No loss 0 Best Language: 0 Normal 0 Dysathria: 0 Normal 0 Extinction and Inattention: 0 Normal 0 Total 8 BRISEIDA EDWARDS DO Sep 22, 2021 14:06
--- NOTE | 2021-09-22 14:13 | RAD ---
EXAM: CT Head without IV contrast CLINICAL HISTORY: Reason: LT SIDE WEAKNESS, FACIAL DROOP / Spl. Instructions: / History: COMPARISON: None. TECHNIQUE: Routine CT of the head without contrast. PQRS compliance statement - One or more of the following individualized dose reduction techniques wer e utilized for this study: 1. Automated exposure control 2. Adjustment of the mA and/or kV according to patient size 3. Use of iterative reconstruction technique FINDINGS: There is no evidence of hemorrhage, mass or extra-axial fluid collection. Changes of old infarct with encephalomalacia in the right parietal and occipital region. White matter changes likely chronic small vessel disease. There is no mass effect or shift of the intracranial structures. The ventricles and cerebral sulci are prominent for the patients stated age consistent with generaliz ed cerebral volume loss. Mild ex vacuo dilatation of the right lateral ventricle from prior infarct. The cerebellum and brainstem are unremarkable. The calvarium demonstrates no evidence of fracture or focal lesion. Patchy opacification right sphenoid sinus. Otherwise there is normal aeration of the visualized paran lakisha sinuses and mastoid air cells. The visualized portions of the orbits are normal. IMPRESSION: 1. No evidence for acute intracranial hemorrhage. 2. Subcortical and periventricular as well as deep white matter foci of hypoattenuation likely salomon es of chronic small vessel disease. 3. Old infarct right parietal occipital region with associated encephalomalacia. If there is clinica l concern for superimposed acute infarct, further evaluation with MRI can be performed. 4. Patchy opacification right sphenoid sinus, sinusitis. Findings discussed with BRISIEDA EDWARDS DO at 09/22/2021 2:06 PM. FOR INTERNAL CODING PURPOSES RESULT CODE: (C) Electronically signed by: Roshan Doll MD (09/22/2021 2:10 PM) [id number]
[2021-09-22] MEDS ORDERED: IOHEXOL 350 MG/ML 100 ML VIAL. IV ONE (14:15)
[2021-09-22 14:26] LABS: BASO # 0.3 x10^3/uL (0.0-0.2); BASO % 4 % (0-3); EOS # 0.1 x10^3/uL (0.0-0.7); EOS % 2 % (0-3); HEMATOCRIT 40.5 % (39.0-53.0); HEMOGLOBIN 13.5 g/dL (13.0-17.5); LYMPH # 2.1 x10^3/uL (1.0-4.8); LYMPH % 26 % (24-48); MEAN CORPUSCULAR HEMOGLOBIN 30 pg (25-35); MEAN CORPUSCULAR HGB CONC 33 g/dL (31-37); MEAN CORPUSCULAR VOLUME 89 fL (79-100); MONO # 0.6 x10^3/uL (0.0-1.1); MONO % 7 % (0-9); NEUT % 61 % (31-73); PLATELET COUNT 340 x10^3/uL (140-400); RED BLOOD COUNT 4.56 x10^6/uL (4.30-5.70); RED CELL DISTRIBUTION WIDTH 15.5 % (11.5-14.5); WHITE BLOOD COUNT 8.1 x10^3/uL (4.0-11.0)
[2021-09-22 14:31] LABS: CALCIUM 9.3 mg/dL (8.5-10.1); CREATININE 1.1 mg/dL (0.7-1.3); GFR 82.3; POTASSIUM 4.1 mmol/L (3.5-5.1)
[2021-09-22 14:37] LABS: ALBUMIN 3.7 g/dL (3.4-5.0); ALBUMIN/GLOBULIN RATIO 1.1 (1.0-1.7); TOTAL BILIRUBIN 0.5 mg/dL (0.2-1.0)
--- NOTE | 2021-09-22 14:41 | RAD ---
EXAM: Chest, single view. HISTORY: Weakness. COMPARISON: 05/31/2021 FINDINGS: A frontal view of the chest is obtained. There is no infiltrate, pleural effusion or pneumo thorax. The heart is normal in size. IMPRESSION: No acute pulmonary finding. Electronically signed by: Delmy Solis MD (09/22/2021 2:38 PM) [id number]
--- NOTE | 2021-09-22 14:46 | RAD ---
CLINICAL HISTORY: Reason: WEAKNSS / Spl. Instructions: / History: COMPARISON: None available. TECHNIQUE: CT angiogram of the head and neck was performed following the administration of IV contras t. Multiplanar reconstructed images were obtained including 3D reconstructed images performed on an [employer] work station. Stenosis if present in the carotid arteries were measured using NASCET crite bright. PQRS compliance statement - One or more of the following individualized dose reduction techniques wer e utilized for this study: 1. Automated exposure control 2. Adjustment of the mA and/or kV according to patient size 3. Use of iterative reconstruction technique FINDINGS: Atheromatous plaquing calcifications are seen within the cavernous and supraclinoid portions of the I CA bilaterally, resulting in mild to moderate narrowing, in general stable. The anterior cerebral arteries are patent bilaterally. The left MCA is patent, similar in appearance to prior examination. There is occlusion of the proxima l right M1, stable in appearance. The marketing project specialist grossly patent bilaterally. Mild intermittent narrowing of the intracranial portion of the vertebral arteries. There is mild-to-m oderate narrowing of the basilar artery as well. In the neck, the origins of the great vessels are unremarkable. Bovine configuration of the aortic ar ch. The common carotid arteries, bilaterally are normal with no evidence of significant stenosis or occlu yocasta. The internal carotid arteries are normal bilaterally with no evidence of stenosis. There is mild narrowing at the origin of the vertebral arteries bilaterally. The remainder the verteb ral arteries are otherwise grossly patent. []. Bilateral thyroid nodules are seen measuring up to 2.7 cm. Thyroid ultrasound is recommended if not p reviously performed. IMPRESSION: 1. Chronic right MCA occlusion, proximal M1 segment. 2. Atheromatous plaque and calcifications of the intracranial carotid and vertebral arteries without high-grade stenosis. 3. Bilateral thyroid nodules are seen measuring up to 2.7 cm. Thyroid ultrasound is recommended if n ot previously performed. Findings of chronic right M1 occlusion discussed with BRISEIDA EDWARDS DO at 09/22/2021 2:31 PM. FOR INTERNAL CODING PURPOSES RESULT CODE: (C) Electronically signed by: Roshan Doll MD (09/22/2021 2:44 PM) [id number]
[2021-09-22] MEDS ORDERED: ONDANSETRON PF 4 MG/2 ML VIAL. IVP PRN (15:30)
[2021-09-22] MEDS ORDERED: HYDROcodone/APAP 10/325 1 TAB TABLET PO ONE (16:45)
[2021-09-22 18:00] VITALS: BP 145/82
[2021-09-22] MEDS ORDERED: CLOP75TA57 PO (18:21)
[2021-09-22] MEDS ORDERED: LISI20TA18 PO (18:21)
[2021-09-22] MEDS ORDERED: HYDR25TA10 PO (18:21)
[2021-09-22] MEDS ORDERED: AMLO-187 PO (18:21)
[2021-09-22] MEDS ORDERED: ISOS20TA4 PO (18:21)
[2021-09-22] MEDS ORDERED: ZOLP5TAB PO (18:21)
[2021-09-22] MEDS ORDERED: POTA-121 PO (18:21)
[2021-09-22] MEDS ORDERED: ATOR40TA59 PO (18:21)
[2021-09-22] MEDS ORDERED: HYDR-2769 PO (18:21)
[2021-09-22] MEDS ORDERED: SERT50TA PO (18:21)
[2021-09-22] MEDS ORDERED: CYCL10TA19 PO (18:21)
[2021-09-22] MEDS ORDERED: ONDA4TAB12 PO (18:21)
[2021-09-22] MEDS ORDERED: ZOLPIDEM 5 MG TABLET. PO PRN (18:30)
[2021-09-22] MEDS ORDERED: ONDANSETRON ODT 4 MG TAB.RAPDIS PO PRN (18:30)
--- NOTE | 2021-09-22 19:14 | EKG ---
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
[2021-09-22] MEDS: CYCLOBENZAPRINE 10 MG TABLET. PO PRN (19:46)
[2021-09-22] MEDS: ATORVASTATIN CALCIUM 20 MG TABLET PO SCH (19:47)
[2021-09-22] MEDS: ISOSORBIDE DINITRATE 10 MG TABLET. PO SCH (19:47)
[2021-09-22] MEDS: HYDROcodone/APAP 10/325 1 TAB TABLET PO PRN (19:49)
[2021-09-22 23:18] VITALS: BP 120/70
[2021-09-22] MEDS: ACETAMINOPHEN 325 MG TABLET PO PRN (23:21)
[2021-09-23 05:39] VITALS: BP 129/69
[2021-09-23 06:10] LABS: BASO # 0.1 x10^3/uL (0.0-0.2); BASO % 1 % (0-3); EOS # 0.2 x10^3/uL (0.0-0.7); EOS % 3 % (0-3); HEMATOCRIT 38.5 % (39.0-53.0); HEMOGLOBIN 12.9 g/dL (13.0-17.5); LYMPH % 42 % (24-48); MEAN CORPUSCULAR HEMOGLOBIN 30 pg (25-35); MEAN CORPUSCULAR HGB CONC 33 g/dL (31-37); MEAN CORPUSCULAR VOLUME 89 fL (79-100); MONO # 0.5 x10^3/uL (0.0-1.1); MONO % 8 % (0-9); NEUT # 3.3 x10^3uL (1.8-7.7); NEUT % 47 % (31-73); PLATELET COUNT 305 x10^3/uL (140-400); RED BLOOD COUNT 4.35 x10^6/uL (4.30-5.70); RED CELL DISTRIBUTION WIDTH 15.5 % (11.5-14.5); WHITE BLOOD COUNT 7.1 x10^3/uL (4.0-11.0)
[2021-09-23 06:26] LABS: ALBUMIN 3.4 g/dL (3.4-5.0); ALBUMIN/GLOBULIN RATIO 1.1 (1.0-1.7); CALCIUM 8.8 mg/dL (8.5-10.1); CREATININE 0.9 mg/dL (0.7-1.3); GFR 103.8; POTASSIUM 3.9 mmol/L (3.5-5.1); TOTAL BILIRUBIN 0.3 mg/dL (0.2-1.0); TOTAL PROTEIN 6.4 g/dL (6.4-8.2)
--- NOTE | 2021-09-23 09:05 | HP ---
DATE OF SERVICE: 09/23/2021 ADMIT DATE: 09/22/2021 ATTENDING PHYSICIAN: Dr. Carpenter. CHIEF COMPLAINT: Dizziness and headache. HISTORY OF PRESENT ILLNESS: The patient is a 61-year-old gentleman admitted through the ER with new onset of dizziness and dysmetria. He had a stroke supposedly last December. The ER reports that 2 months ago, he was seen in [facility], had an extensive workup. He was also referred to Dr. Madera, the interventional neurologist at the [facility]. He was supposed to have according to him, a catheterization to look at the vasculature of his brain. The patient has been placed on Plavix. The followup CT scan yesterday showed no new bleeds or acute process, although we do not have MRI capabilities. The question is that he have an extension of the stroke. He was admitted here for further evaluation monitoring and Neurology consultation. PAST MEDICAL HISTORY: Significant for the stroke 9 months ago. He has hyperlipidemia, hypertension, sciatica and chronic low back pain. PAST SURGICAL HISTORY: Includes appendectomy, lumbar spine surgery and right shoulder repair. ALLERGIES: He has no known drug allergies. CURRENT MEDICATIONS: Include the following: He was on scheduled Plavix 75 mg p.o. daily, aspirin 81 mg daily, amlodipine 10 mg daily, Lipitor 40 mg daily, Flexeril p.r.n., hydrochlorothiazide, potassium supplementation, lisinopril 20 mg daily, Zoloft 50 mg at bedtime and Ambien p.r.n. FAMILY HISTORY: Father at age 55 of lung cancer. Mom is still alive at age 86. 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 He does smoke cigars, exact amount is unclear. He denies any alcohol use. REVIEW OF SYSTEMS: Significant for the dizziness. He has no speech issues. All other systems reviewed and turned to be negative. PHYSICAL EXAMINATION: GENERAL: When I saw him, this is a pleasant, middle-aged gentleman. VITAL SIGNS: Initial vital signs showed a blood pressure 129/69 mmHg, pulse is 61 and regular. He was afebrile, oxygen saturation 94% on room air. HEENT: Head is without trauma. Pupils are reactive. Sclerae are nonicteric. The oropharynx is clear. NECK: Supple, no bruits identified. LUNGS: Clear to auscultation. CARDIOVASCULAR: Regular heart tones. ABDOMEN: Soft. EXTREMITIES: Without edema. NEUROLOGIC: Focally intact. His speech is fluent. Hris Administrator were intact. PERTINENT LABORATORY AND X-RAY STUDIES: The hemoglobin is 12.9 g/dL with a white count of 7100. Electrolytes, BUN and creatinine, blood sugar all within normal range. Serology negative for coronavirus. IMAGING STUDIES: His chest x-ray showed no acute process. He had a head and neck CT, which showed chronic right middle cerebral artery distribution, occlusion of the proximal M1 segment. Completed stroke involving the right temporal occipital lobe, some thyroid nodules are seen. Atheromatous plaque and calcification of the intracranial carotid and vertebral arteries without high-grade stenosis. Once again, there is no acute intracranial hemorrhage. There is subcortical and periventricular white matter chronic vessel disease. There is an old infarct in the right parietal occipital region with associated encephalomalacia. ASSESSMENT: 1. A 61-year-old gentleman with stroke last year. 2. New onset of dizziness, which may be consistent with a new disease. 3. Hypertension. 4. Hyperlipidemia. PLAN: 1. Admit to the inpatient unit. 2. Continue home meds. 3. Formal Neurology consultation during this admission. BELEM DR: Kathi TID: [id number] CC: Demond Miner
[2021-09-23] MEDS: HYDROcodone/APAP 10/325 1 TAB TABLET PO PRN ×4 (09:10→22:45)
[2021-09-23] MEDS: amLODIPine BESYLATE 10 MG TABLET PO SCH (09:10)
[2021-09-23] MEDS: POTASSIUM CHLORIDE 20 MEQ TABLET.ER. PO SCH (09:11)
[2021-09-23] MEDS: SERTRALINE 50 MG TABLET. PO SCH (09:11)
[2021-09-23] MEDS: ISOSORBIDE DINITRATE 10 MG TABLET. PO SCH ×3 (09:11→21:06)
[2021-09-23] MEDS: CLOPIDOGREL BISULFATE 75 MG TABLET PO SCH (09:11)
[2021-09-23] MEDS: LISINOPRIL 20 MG TABLET PO SCH (09:12)
[2021-09-23 10:52] VITALS: BP 138/81
[2021-09-23] MEDS: ACETAMINOPHEN 325 MG TABLET PO PRN (10:52)
[2021-09-23 14:34] VITALS: BP 121/68
[2021-09-23 19:37] VITALS: BP 136/68
--- NOTE | 2021-09-23 20:34 | CONS ---
DATE OF CONSULTATION: 09/22/2021 NEUROLOGY CONSULT REFERRING PHYSICIAN: Dr. Carpenter. REASON FOR CONSULTATION: Acute onset of stroke. HISTORY OF PRESENT ILLNESS: This is a 61-year-old right-handed -Faroese male who is known to me from previous outpatient visits having chronic lower back pain radiating to the left lower extremities associated with numbness and paresthesia. The patient was admitted through Emergency Room today after he presented with a new onset of right-sided weakness began at 9:00 early this morning. The patient also complains of global headache and dizziness described as unsteadiness and being on a boat and bobbing up and down in the water. He stated in 12/2020, the patient had a stroke, resulted from complete occlusion of proximal right MCA. The patient also had left homonymous hemianopsia. He denies chest pain, shortness of breath or palpitations, dysarthria or dysphagia. The patient had a complete workup for stroke last year and he was evaluated at [facility]. MRI was performed, but the result is not available at this time. He denies dysarthria, dysphagia, nausea, vomiting, or recent falls. He is known to have multiple lumbosacral spine surgeries for chronic lower back pain, which resulted in weakness of the left lower extremities and sometimes footdrop. The patient stated he was evaluated by clinic coordinator at [facility] and it was recommended to have cardiac catheterization. Initial nonenhanced head CT scan revealed periventricular small vessel ischemic changes and old right MCA infarct as well as old parietal occipital infarct with encephalomalacia. Finding was consistent on CT angio as well. Patchy opacification of the right sphenoid sinus was also seen. CURRENT MEDICATIONS: Sertraline 50 mg p.o. daily, potassium 20 mEq daily, lisinopril 20 mg daily, Plavix 75 mg daily, amlodipine 10 mg p.o. daily, isosorbide 20 mg t.i.d., Lipitor 40 mg p.o. daily, zolpidem 5 mg at bedtime for insomnia, Zofran 2 mg daily, hydrocodone/NSAIDs, Flexeril 10 mg at bedtime, and Tylenol. ALLERGIES: No known drug allergies. PAST MEDICAL HISTORY: Significant for hypertension, hyperlipidemia, chronic radicular lower back pain, stroke as described above. PAST SURGICAL HISTORY: Positive for appendectomy and multiple lumbosacral spine surgeries and possible fusion, right shoulder surgery as well. FAMILY HISTORY: The patient has 3 brothers and 4 sisters. His father at the age of 56 from lung cancer and mother is alive at the age of 82. SOCIAL HISTORY: The patient is . He has 1 son and daughter. He smokes a cigar. He drinks alcohol occasionally. He denies illegal drug use; however, he used opiates and marijuana and he is disabled. PHYSICAL EXAMINATION: GENERAL: Well-developed, well-nourished male, not in acute distress. VITAL SIGNS: Blood pressure 129/69, respiratory rate 18, pulse is 61 and regular, temperature 98.1, oxygen saturation is 94% on room air. HEENT: Normocephalic, atraumatic, otherwise unremarkable. NECK: Supple, negative for carotid bruit, lymphadenopathy or thyromegaly. LUNGS: Clear to A and P. CARDIOVASCULAR: Regular rate and rhythm, normal S1, S2. There is no S3, S4, or murmur. ABDOMEN: Soft. Bowel sounds positive. EXTREMITIES: Negative for cyanosis, clubbing or pedal edema. NEUROLOGIC: Mental status: The patient is alert and oriented x 3. Speech is fluent. There is no language dysfunction. Memory, judgment and abstracting thinking are normal. The patient denies hallucination or delusion. Cranial nerves: Visual moran consistent with left homonymous hemianopsia. The strength is 4/5 in the left upper and lower extremities. The strength is +4/5 in the right upper and lower extremities. Sensory examination revealed diminished pinprick and light touch senses in the left upper and lower extremities. Deep tendon reflexes were symmetric and hypoactive with no Babinski. Gait not tested. IMPRESSION: 1. A new onset of right upper and lower extremities without strong evidence of acute stroke in the left hemisphere at this time; however, the patient has chronic small vessel ischemic changes and his neurological examination consistent with residual of mild left hemiparesis and severe left lower extremity paresis, probably a combination of previous stroke and a previous or chronic lumbosacral radiculopathy and surgical intervention of the spine. 2. Multiple risk factors of stroke including previous stroke, hypertension and hyperlipidemia. 3. Chronic radicular lower back pain. 4. Depression. RECOMMENDATIONS: 1. Continue with current home medications including aspirin and Plavix. 2. Brain MRI is recommended to rule out a new onset of the right hemispheric stroke. 3. PT, OT as tolerated. CANDY DR: Teresa TID: [id number]
[2021-09-23] MEDS: ATORVASTATIN CALCIUM 20 MG TABLET PO SCH (21:06)
[2021-09-23 23:03] VITALS: BP 142/62
[2021-09-24] MEDS: CYCLOBENZAPRINE 10 MG TABLET. PO PRN (02:43)
[2021-09-24 05:36] VITALS: BP 134/66
[2021-09-24] MEDS: SERTRALINE 50 MG TABLET. PO SCH (08:14)
[2021-09-24] MEDS: LISINOPRIL 20 MG TABLET PO SCH (08:14)
[2021-09-24] MEDS: POTASSIUM CHLORIDE 20 MEQ TABLET.ER. PO SCH (08:15)
[2021-09-24] MEDS: amLODIPine BESYLATE 10 MG TABLET PO SCH (08:15)
[2021-09-24] MEDS: CLOPIDOGREL BISULFATE 75 MG TABLET PO SCH (08:15)
[2021-09-24] MEDS: HYDROcodone/APAP 10/325 1 TAB TABLET PO PRN (08:17)
[2021-09-24 09:00] VITALS: BP 134/66
[2021-09-24] MEDS: ISOSORBIDE DINITRATE 10 MG TABLET. PO SCH (09:00)
--- NOTE | 2021-09-24 18:36 | DS ---
DATE OF DISCHARGE: 09/24/2021 ATTENDING PHYSICIAN: Dr. Carpenter. FINAL DISCHARGE DIAGNOSES: 1. Transient ischemic attack, symptoms resolved. 2. Old completed stroke last year. 3. Musculoskeletal tension headache. 4. Hypertension. 5. Hyperlipidemia. 6. Continued tobacco addiction. 7. Chronic alcohol use. HISTORY AND PHYSICAL: The patient is age 61, had a stroke last summer. He was sent to [facility]. He also followed with Dr. Christiano Madera at [facility]. 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 He presented with vague nonspecific symptoms of headache and dizziness. Workup here CT of the head showed no acute strokes identified. He was admitted for further treatment and evaluation. PHYSICAL EXAMINATION: Please see the dictated note. PERTINENT LABORATORY AND X-RAY STUDIES: His hemoglobin on admission was 13.5 g/dL with a white count of 8100. Electrolytes all within normal range. Cardiac enzymes negative for coronary ischemia. Nonfasting blood sugar 105. CT head and CT angiograms were done. They report showed no acute strokes identified. Dr. Amado was consulted. His recommendation on the chart. COURSE IN THE HOSPITAL: He was stabilized. Symptoms resolved. We continued his Plavix and home meds. He did admit to continued tobacco abuse as well as alcohol use how much may be significant. I recommended to him strong encouragement to avoid further tobacco use and alcohol use, whether or not he will follow this advice remains to be seen. On the second hospital day, his vital signs were stable. Neurological function back to baseline. He is discharged home with no changes in his meds. He should continue his Flexeril p.r.n., amlodipine 10 mg daily, Lipitor 40 mg daily, Plavix 75 mg daily, hydrochlorothiazide 25 mg p.o. daily, hydrocodone p.r.n. pain, isosorbide mononitrate 20 mg t.i.d., lisinopril 20 mg daily, potassium supplementation, Zoloft and Ambien at bedtime. He will follow up as regular scheduled time with Dr. Miner. The patient was then discharged from our hospital in stable condition with explicit drug and followup. Total discharge time spent [address]: Kathi TID: [id number] CC: Demond Miner
== END 2021-09-24 10:13 | disposition home or self-care (01) ==
LOC: ER 13:56 → UNDOADMIN 15:38 → ER HOLD 15:38 → INTOOBSV 16:15 → 1 SOUTH 16:20
PROVIDERS: ADMIT Hospitalist; ATTEND Hospitalist
DX: G45.9 Transient cerebral ischemic attack, unspecified (principal); Z20.822 Contact with and (suspected) exposure to COVID-19; I10 Essential (primary) hypertension; E78.5 Hyperlipidemia, unspecified; G89.29 Other chronic pain; R42 Dizziness and giddiness; M54.50 Low back pain, unspecified; M62.81 Muscle weakness (generalized); I63.9 Cerebral infarction, unspecified; R29.708 NIHSS score 8; F32.9 Major depressive disorder, single episode, unspecified; F10.129 Alcohol abuse with intoxication, unspecified; F17.290 Nicotine dependence, other tobacco product, uncomplicated; Z90.49 Acquired absence of other specified parts of digestive tract; Z79.899 Other long term (current) drug therapy; Z98.890 Other specified postprocedural states; Z79.02 Long term (current) use of antithrombotics/antiplatelets; Z79.82 Long term (current) use of aspirin; Z86.73 Personal history of transient ischemic attack (TIA), and cerebral infarction without residual deficits
CPT/HCPCS: 36415; 70450; 70496; 70498; 71045; 80053; 84484; 85025; 85610; 85730; 87426; 92610; 93005; 97162; 97166; 97535; 99285; G0378; Q9967; U0003; G0379

== ENCOUNTER 2021-11-24 02:49 | Emergency (ER) | payer OTHER ==
[~2021-11-24] VITALS: Ht 186.7 cm; Wt 91.7 kg
[~2021-11-24 02:49] MED LIST changes: +AMLO-187 PO; +ATOR40TA59 PO; +CLOP75TA57 PO; +HYDR-2769 PO; +HYDR25TA10 PO; +ISOS20TA4 PO; +POTA-121 PO; +SERT50TA PO; +ZOLP5TAB PO
--- NOTE | 2021-11-24 03:07 | PHYS DOC ---
Past History Past Medical History: Bronchitis, CVA, High Cholesterol, Hypertension, Sciatica, Stroke Additional Past Medical Histor: CHRONIC BACK PAIN, NEUROPATHY Past Surgical History: Appendectomy, Other Additional Past Surgical Histo: right shoulder, lumbar spine Smoking: Cigar Alcohol Use: None Drug Use: None General Adult EDM: Chief Complaint: ALTERED MENTAL STATUS HPI: HPI: ".. I know I screwed up... I took some extra pain meds.. for my chronic back pain... I know better.. but .. .. I was hurting bad in my back.. I had surgery before.. that this scar on my stomach..I ve got an apt. in few hours.. [employer] at ... I cannot miss that appointment I been waiting 6 months... and then I come back care for a appointment with Dr. Miner up stairs..... At about 1:00pm" Patient is a 61 year old male who presents with above hx and complaints of mental status change.. Patient states his chronic back pain has gotten worse last couple days. He did take extra pain medicine tonight. Patient knows it is probably caused his mental status change. Patient states he is back at his baseline now . The patient does have a significant medical history of prior stroke approximately 2 months ago. Also has a history of stroke last December. Patient was seen at [facility] and had extensive work-up. Patient does follow with Dr. Madera interventional neurologist at [facility]. Patient is on Plavix.. Does have a past medical history of hyperlipidemia, hypertension, chronic sciatica, chronic back pain. Patient has had appendectomy, lumbar sacral spine and cage hardware placement. 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 Denies any illicit drug use or alcohol use. Review of Systems: Review of Systems: Constitutional: Denies fever or chills Eyes: Denies change in visual acuity HENT: Denies nasal congestion or sore throat Respiratory: Denies cough or shortness of breath Cardiovascular: Denies chest pain or edema GI: Denies abdominal pain, nausea, vomiting, bloody stools or diarrhea : Denies dysuria Musculoskeletal: Complains of chronic lumbar sacral and sciatica pain. Integument: Denies rash Neurologic: Denies headache, focal weakness or sensory changes. Altered mental status after taking extra pain meds tonight. Recent history of CVA with follow- up with [facility]. Does have some left-sided weakness and sensation deficits from previous CVA as well as the one 2 months ago/ Endocrine: Denies polyuria or polydipsia Lymphatic: Denies swollen glands Psychiatric: History of depression and anxiety. Family History: Family History: Father of lung cancer age 55. Mother is alive and well at IDG is 86. Current Medications: Current Meds: See nursing for home meds Allergies: Allergies: Allergies Coded Allergies Type Severity Reaction Last Updated Verified No Known Drug Allergies 04/07/21 No Physical Exam: PE: Constitutional:no ddistress, non-toxic appearance. [] HENT: Normocephalic, atraumatic, bilateral external ears normal, oropharynx moist, no oral exudates, nose normal. [] Eyes: PERRLA, EOMI, conjunctiva normal, no discharge. Decreased vision left eye-chronic /subacute CVA sequela Neck: Normal range of motion, no tenderness, supple, no stridor. No bruit appreciated] Cardiovascular:Heart rate regular rhythm, no murmur [] Lungs & Thorax: Bilateral breath sounds equal apex with few scattered wheezes auscultation [] tattoo 'Tonia" on Left-sided chest Abdomen: Bowel sounds normal, soft, no tenderness, no masses, no pulsatile masses. Large midline scar. Additional surgery scars Skin: Warm, dry, no erythema, no rash. [] Back: No tenderness, no CVA tenderness. [] Extremities: No tenderness, no cyanosis, no clubbing, has decreased ROM on left side. Reports this is an old finding from prior CVAs., no edema. No cording appreciated Neurologic: Alert and oriented X 3, moves all extremities on request, left side is somewhat diminished, decreased upper arm sensory function reportedly these are old findings-sequela since last 2 CVAs., no new focal deficits noted per patient. Psychologic: Affect normal, judgement normal, mood normal. [] EKG: EKG: My interpretation EKG shows a sinus rhythm at 63 beats per minute. There is some nonspecific T wave changes but no findings acute STEMI of contralateral changes. Time of EKG is 335 hours Reviewed EKG strips from paramedics. It showed a sinus rhythm at 70 bpm. No acute morphology. Overall no significant interval change Splane this strip and the EKG completed in the ED. [] Radiology/Procedures: Radiology/Procedures: PQRS Compliance Statement: One or more of the following individualized dose reduction techniques were utilized for this examination: 1. Automated exposure control 2. Adjustment of the mA and/or kV according to patient size 3. Use of iterative reconstruction technique CT head and cervical spine without contrast 11/24/2021 3:00 AM INDICATION: Altered mental status, confusion. History of stroke. COMPARISON: CT head 09/22/2021 TECHNIQUE: Multiple axial CT images of the head were obtained from skull base through the vertex without intravenous contrast. Multiple axial CT images of the cervical spine were obtained without intravenous contrast. Coronal and sagittal reformats are provided. FINDINGS: Head: Remote ischemic changes identified involving the right duffy radiata, right periatrial white matter, right posterior frontal lobe, right parietal lobe and right occipital lobe as well as portion of the right posterior temporal lobe. There is associated expected dilatation of the right lateral ventricle. No hydrocephalus. Mild generalized cerebral volume loss. There is no acute intracranial hemorrhage. There is no mass, mass effect or midline shift. Posterior fossa is normal in appearance. Visualized portions of the orbits are normal. There is opacification of a few anterior and posterior ethmoid air cells. Mastoid air cells are well aerated. Scalp and calvaria are normal. Cervical spine: Alignment of the cervical spine is normal. Skull base is intact. Craniocervical junction is normal in appearance. Atlantoaxial articulation is normal. Vertebral body heights are maintained without evidence for acute fracture. Mild anterior marginal osteophytosis. Facet joints are within normal limits. No significant osseous neural foraminal stenosis. No significant osseous spinal canal stenosis. Transverse foramen are intact. There is no prevertebral soft tissue swelling. There is a 1.8 cm left thyroid nodule. Mild centrilobular pulmonary emphysema. IMPRESSION: 1. No acute intracranial hemorrhage. Remote ischemic changes identified within the right MCA and DIRECTOR OPERATIONS territories. 2. No acute fracture or malalignment of the cervical spine. 3. Left thyroid nodule measures 1.8 cm. Nonemergent thyroid ultrasound could be of benefit. Electronically signed by: Katie Lu MD (11/24/2021 3:19 AM) [facility] DICTATED AND SIGNED BY: KATIE LU MD DATE: 11/24/21309 CC: SLICK KELSEY MD; LORI MINER MD ~ [][place] [address] IMAGING REPORT Signed PATIENT: HALLE TADEOUNT: [id number] : 1960 LOCATION: ER AGE: 61 SEX: M EXAM STATUS: REG ER ORD. PHYSICIAN: SLICK KELSEY MD REASON: AMS, confusion, hx of stroke PROCEDURE: PORTABLE CHEST 1V XR CHEST 1V 11/24/2021 2:59 AM INDICATION: Altered mental status, confusion COMPARISON: 09/22/2021 TECHNIQUE: Portable frontal view of the chest is provided. FINDINGS: The cardiomediastinal silhouette is within normal limits. Lungs are clear. There are no significant pleural effusions. There is no pulmonary vascular congestion. No pneumothorax. No suspicious osseous abnormality. IMPRESSION: There is no acute cardiopulmonary process. Electronically signed by: Katie Lu MD (11/24/2021 3:10 AM) [facility] DICTATED AND SIGNED BY: KATIE LU MD DATE: 11/24/21309 CC: SLICK KELSEY MD; LORI MINER MD ~ Heart Score: C/O Chest Pain: N/A Risk Factors: Risk Factors: DM, Current or recent (<one month) smoker, HTN, HLP, family history of CAD, obesity. Risk Scores: Score 0 - 3: 2.5% MACE over next 6 weeks - Discharge Home Score 4 - 6: 20.3% MACE over next 6 weeks - Admit for Clinical Observation Score 7 - 10: 72.7% MACE over next 6 weeks - Early Invasive Strategies Course & Med Decision Making: Course & Med Decision Making Pertinent Labs and Imaging studies reviewed. (See chart for details) Patient keep appointments at Dr. Miner's office today and at ophthalmology. Patient take meds as directed. Patient return if any concerns. Impression: 1. Altered mental status due to-additional narcotic use 2. History of prior CVAs the last 1 approximately 2 months ago ( MCA and DIRECTOR OPERATIONS) 3. Exacerbation of Chronic Back Pain- Sciatica 4. Lt. eye Visual changes- Chronic/ Sub acute- ( Has apt. at [facility] this morning 0900 Hrs0 [] Dragon Disclaimer: Dragon Disclaimer: This electronic medical record was generated, in whole or in part, using a voice recognition dictation system. Departure Departure: Referrals: LORI MINER MD (PCP) Darryl Disclaimer This chart was dictated in whole or in part using Voice Recognition software in a busy, high-work load, and often noisy Emergency Department environment. It may contain unintended and wholly unrecognized errors or omissions. Dragon Disclaimer This chart was dictated in whole or in part using Voice Recognition software in a busy, high-work load, and often noisy Emergency Department environment. It may contain unintended and wholly unrecognized errors or omissions. SLICK KELSEY MD November 24, 2021 03:07
--- NOTE | 2021-11-24 03:12 | RAD ---
XR CHEST 1V 11/24/2021 2:59 AM INDICATION: Altered mental status, confusion COMPARISON: 09/22/2021 TECHNIQUE: Portable frontal view of the chest is provided. FINDINGS: The cardiomediastinal silhouette is within normal limits. Lungs are clear. There are no significant pleural effusions. There is no pulmonary vascular congestion. No pneumothora x. No suspicious osseous abnormality. IMPRESSION: There is no acute cardiopulmonary process. Electronically signed by: Constance De Souza MD (11/24/2021 3:10 AM) [facility]
--- NOTE | 2021-11-24 03:21 | RAD ---
PQRS Compliance Statement: One or more of the following individualized dose reduction techniques were utilized for this examinat ion: 1. Automated exposure control 2. Adjustment of the mA and/or kV according to patient size 3. Use of iterative reconstruction technique CT head and cervical spine without contrast 11/24/2021 3:00 AM INDICATION: Altered mental status, confusion. History of stroke. COMPARISON: CT head 09/22/2021 TECHNIQUE: Multiple axial CT images of the head were obtained from skull base through the vertex with out intravenous contrast. Multiple axial CT images of the cervical spine were obtained without intrav enous contrast. Coronal and sagittal reformats are provided. FINDINGS: Head: Remote ischemic changes identified involving the right duffy radiata, right periatrial white matter, right posterior frontal lobe, right parietal lobe and right occipital lobe as well as portion of the right posterior temporal lobe. There is associated expected dilatation of the right lateral ventricl e. No hydrocephalus. Mild generalized cerebral volume loss. There is no acute intracranial hemorrhage. There is no mass, mass effect or midline shift. Posterior fossa is normal in appearance. Visualized portions of the orbits are normal. There is opacification of a few anterior and posterior ethmoid air cells. Mastoid air cells are well aerated. Scalp and calvaria are normal. Cervical spine: Alignment of the cervical spine is normal. Skull base is intact. Craniocervical junction is normal in appearance. Atlantoaxial articulation is normal. Vertebral body heights are maintained without evidence for acute fracture. Mild anterior marginal osteophytosis. Facet joints are within normal limits. No significant osseous n eural foraminal stenosis. No significant osseous spinal canal stenosis. Transverse foramen are intact . There is no prevertebral soft tissue swelling. There is a 1.8 cm left thyroid nodule. Mild centrilobu lar pulmonary emphysema. IMPRESSION: 1. No acute intracranial hemorrhage. Remote ischemic changes identified within the right MCA and LEGAL TRANSCRIPTIONIST territories. 2. No acute fracture or malalignment of the cervical spine. 3. Left thyroid nodule measures 1.8 cm. Nonemergent thyroid ultrasound could be of benefit. Electronically signed by: Constance De Souza MD (11/24/2021 3:19 AM) [facility]
[2021-11-24] MEDS: IV RINGERS SOLUTION,LACTATED 1,000 ML IV SCH (03:27)
[2021-11-24 03:29] LABS: BASO % 1 % (0-3); EOS # 0.2 x10^3/uL (0.0-0.7); EOS % 2 % (0-3); HEMATOCRIT 39.4 % (39.0-53.0); HEMOGLOBIN 13.2 g/dL (13.0-17.5); LYMPH # 3.2 x10^3/uL (1.0-4.8); LYMPH % 37 % (24-48); MEAN CORPUSCULAR HEMOGLOBIN 31 pg (25-35); MEAN CORPUSCULAR HGB CONC 34 g/dL (31-37); MEAN CORPUSCULAR VOLUME 92 fL (79-100); MONO # 0.7 x10^3/uL (0.0-1.1); MONO % 8 % (0-9); NEUT # 4.5 x10^3uL (1.8-7.7); NEUT % 52 % (31-73); PLATELET COUNT 343 x10^3/uL (140-400); RED CELL DISTRIBUTION WIDTH 14.2 % (11.5-14.5); WHITE BLOOD COUNT 8.7 x10^3/uL (4.0-11.0)
[2021-11-24 04:02] LABS: CALCIUM 9.3 mg/dL (8.5-10.1); GFR 91.9; POTASSIUM 3.7 mmol/L (3.5-5.1)
[2021-11-24 04:14] LABS: ALBUMIN 3.6 g/dL (3.4-5.0); DIRECT BILIRUBIN 0.1 mg/dL (0.0-0.2); MAGNESIUM 1.8 mg/dL (1.8-2.4); TOTAL BILIRUBIN 0.3 mg/dL (0.2-1.0); TOTAL PROTEIN 6.9 g/dL (6.4-8.2)
[2021-11-24 04:47] VITALS: BP 146/64
--- NOTE | 2021-12-06 18:17 | EKG ---
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
== END 2021-11-24 05:27 | disposition home or self-care (01) ==
LOC: ER 02:49
DX: T40.601A Poisoning by unspecified narcotics, accidental (unintentional), initial encounter (principal); R41.82 Altered mental status, unspecified; M54.40 Lumbago with sciatica, unspecified side; G89.29 Other chronic pain; E78.00 Pure hypercholesterolemia, unspecified; I10 Essential (primary) hypertension; F17.210 Nicotine dependence, cigarettes, uncomplicated; Z86.73 Personal history of transient ischemic attack (TIA), and cerebral infarction without residual deficits; Z90.89 Acquired absence of other organs; Y92.89 Other specified places as the place of occurrence of the external cause
CPT/HCPCS: 36415; 70450; 71045; 72125; 80048; 80076; 82550; 82947; 83690; 83735; 83880; 84443; 84484; 85025; 85379; 85610; 85730; 93005; 96360; 99285; J7120